=== PATIENT | female | born 1990 | race American Indian/Alaskan Native ===

== ENCOUNTER 2023-09-21 08:00 | Emergency (ER) | payer OTHER, SELFPAY ==
[2023-09-21] VITALS (63 sets, daily range): BP systolic 122–198; BP diastolic 64–126; PULSE 77–154; RESP 12–31; TEMP 36.7; O2SAT 97–100; BMI 28.0
--- NOTE | 2023-09-21 08:24 | ED.OVERDOSE ---
HPI - Overdose General Chief Complaint: Toxicology Problem Stated Complaint: overdose on trazodone Time Seen by Provider: 09/21/23 08:22 Source: patient Mode of arrival: Ambulatory History of Present Illness HPI Narrative: Patient is a 32-year-old female history of anxiety depression PTSD on trazodone and Zoloft presenting today after overdose 4 days ago. She reports that 5 days ago she was feeling suicidal she was drinking excessive amount of alcohol riding suicide notes the next day she took trazodone. She is 50 mg tablets she took 6 throughout the day she was wanting to sleep and then had an argument with her at night and took 10-20 tablets unknown how much she actually took. She did take a handful of them she spit them back out then tried to swallow them again unclear how many she actually took. She reports that she has not been sleeping since then she does not feel very good she feels very shaky. She has also been decreasing her Zoloft she was at 100 mg now she is at 50 mg. She reports that she did not take any extra Zoloft. She was unable to sleep left last night she took valerian root and ashwaganda gummy hydroxyzine this morning she did have some alcohol this morning. Patient is no longer endorsing suicidal ideations. Unclear if she would voluntarily go to mental health facility. 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 Unfortunately 1 of crisis counselors also, did suicide. She does not feel like she has support from her but feels like she is support friends He has a previous overdose attempt with Benadryl many years ago Related Data Home Medications Medication Instructions Recorded Confirmed hydroxyzine HCl 10 mg tablet 10 - 25 mg PO Q6H PRN panic attack 03/13/23 04/18/23 Previous Rx's Medication Instructions Recorded hydroxyzine HCl 25 mg tablet 25 mg PO 3XD PRN anxiety #60 tabs 03/13/23 sertraline 100 mg tablet 100 mg PO DAILY #30 tabs 03/13/23 trazodone 50 mg tablet 50 - 100 mg (1 - 2 x 50 mg) PO 03/13/23 ONCE PM #60 tabs bupropion HCl 150 mg tablet,12 hr 150 mg PO BID #60 tabs 09/03/23 sustained-release Allergies Allergy/AdvReac Type Severity Reaction Status Date / Time No Known Drug Allergies Allergy Unverified 03/28/23 11:28 Patient History Medical History (Updated 09/21/23 @ 13:49 by Maria L Elliott DO) PTSD (post-traumatic stress disorder) (~2001) ADHD (~1999) Irregular menstrual cycle (~2006) Herpes (~2009) Frequent UTI (~2010) Chronic bilateral low back pain without sciatica Depression (~2001) Anxiety (~1997) Surgical History (Updated 04/10/23 @ 21:32 by Marie Campos) Anesthesia History of tubal ligation (~04/2015) History of nasal septoplasty (~07/2017) Family History (Updated 04/10/23 @ 21:33 by Marie Campos) Father Diabetes mellitus Stroke Grandmother Cancer Social History Smoking Status: Former smoker Smoking Status: Former smoker alcohol intake frequency: 3 or more drinks per day Alcohol type: beer and wine Substance Use Type: does not use Exam Initial Vital Signs Initial Vital Signs: Vital Signs Temperature 98.1 F 09/21/23 08:06 Pulse Rate 112 H 09/21/23 08:06 Respiratory Rate 18 09/21/23 08:06 Blood Pressure 167/119 H 09/21/23 08:06 Pulse Oximetry 99 09/21/23 08:06 Oxygen Delivery Method Room Air 09/21/23 08:06 GENERAL: Alert anxious 32-year-old female and in [no acute] distress. HEENT: Head atraumatic,EOMI, pupils reactive, face symmetric, [moist] mucous membranes CARDIOVASCULAR: Regular rate and rhythm without murmurs, rubs or gallops. RESPIRATORY: Breath sounds equal bilaterally, no wheezes rales or rhonchi. ABDOMEN: Soft, nontender. Normoactive bowel sounds all 4 quadrants. No guarding or rebound. EXTREMITIES: Normal range of motion, no clubbing or edema. Neurovascularly intact NEUROLOGICAL: Alert and oriented x4.Normal gait and speech. SKIN: Warm, dry, no laceration, no petechiae, no rashes or lesions. Course Orders Ordered: ED Orders 09/21/23 08:56 Urine Drug Screen, Rapid Stat Discontinued Medications Sodium Chloride (Normal Saline 0.9%) 1,000 mls @ 150 mls/hr IV CONT KELSEY Last Infusion: 09/21/23 13:50 Dose: Infused Documented By: Admin: 09/21/23 08:35 Dose: 150 mls/hr Documented By: Lorazepam (Lorazepam 2 Mg/Ml Inj) 0.5 mg IV NOW ONE Stop: 09/21/23 12:20 Last Admin: 09/21/23 12:27 Dose: 0.5 mg Documented By: RB Ondansetron HCl (Ondansetron 4 Mg/2 Ml Inj) 4 mg IV NOW ONE Stop: 09/21/23 12:20 Last Admin: 09/21/23 12:27 Dose: 4 mg Documented By: RB Vital Signs Vital signs: Vital Signs - 8 hr 09/21/23 09:40 09/21/23 09:40 09/21/23 09:45 Pulse Rate 98 H Respiratory Rate 14 Blood Pressure 144/93 H 158/102 H Pulse Oximetry 100 Oxygen Delivery Method 09/21/23 09:45 09/21/23 09:50 09/21/23 09:50 Pulse Rate 89 110 H Respiratory Rate 12 Blood Pressure 152/95 H Pulse Oximetry 99 100 Oxygen Delivery Method 09/21/23 09:55 09/21/23 09:55 09/21/23 10:00 Pulse Rate 103 H 106 H Respiratory Rate 16 18 Blood Pressure 145/88 H Pulse Oximetry 100 100 Oxygen Delivery Method 09/21/23 10:00 09/21/23 10:30 09/21/23 10:39 Pulse Rate 100 H 104 H Respiratory Rate 22 26 H Blood Pressure 150/94 H Pulse Oximetry 98 97 Oxygen Delivery Method Room Air 09/21/23 10:39 09/21/23 10:40 09/21/23 10:40 Pulse Rate 104 H Respiratory Rate Blood Pressure 155/96 H 166/106 H Pulse Oximetry 98 Oxygen Delivery Method Room Air 09/21/23 10:45 09/21/23 10:45 09/21/23 10:51 Pulse Rate 106 H 91 H Respiratory Rate 14 Blood Pressure 170/126 H Pulse Oximetry 98 98 Oxygen Delivery Method 09/21/23 10:51 09/21/23 10:55 09/21/23 10:55 Pulse Rate 117 H Respiratory Rate 26 H Blood Pressure 127/64 153/86 H Pulse Oximetry 98 Oxygen Delivery Method 09/21/23 11:00 09/21/23 11:01 09/21/23 11:01 Pulse Rate 88 93 H Respiratory Rate 25 H 22 Blood Pressure 133/75 Pulse Oximetry 98 99 Oxygen Delivery Method 09/21/23 11:05 09/21/23 11:05 09/21/23 11:10 Pulse Rate 94 H 84 Respiratory Rate 12 Blood Pressure 129/72 Pulse Oximetry 98 97 Oxygen Delivery Method 09/21/23 11:10 09/21/23 11:15 09/21/23 11:15 Pulse Rate 87 Respiratory Rate 21 Blood Pressure 131/76 134/87 Pulse Oximetry 99 Oxygen Delivery Method 09/21/23 11:20 09/21/23 11:20 09/21/23 11:28 Pulse Rate 82 87 Respiratory Rate 19 21 Blood Pressure 124/69 Pulse Oximetry 99 98 Oxygen Delivery Method 09/21/23 11:28 09/21/23 11:30 09/21/23 11:30 Pulse Rate 78 Respiratory Rate 15 Blood Pressure 147/87 H 122/68 Pulse Oximetry 98 Oxygen Delivery Method 09/21/23 11:35 09/21/23 11:35 09/21/23 11:40 Pulse Rate 83 Respiratory Rate 21 Blood Pressure 138/79 Pulse Oximetry 98 97 Oxygen Delivery Method 09/21/23 11:40 09/21/23 11:46 09/21/23 11:46 Pulse Rate Respiratory Rate Blood Pressure 171/117 H 176/101 H Pulse Oximetry 98 Oxygen Delivery Method 09/21/23 11:50 09/21/23 11:50 09/21/23 11:55 Pulse Rate 104 H Respiratory Rate Blood Pressure 174/109 H Pulse Oximetry 97 98 Oxygen Delivery Method 09/21/23 11:55 09/21/23 12:01 09/21/23 12:06 Pulse Rate 94 H Respiratory Rate 27 H Blood Pressure 167/108 H 174/115 H Pulse Oximetry Oxygen Delivery Method 09/21/23 12:06 09/21/23 12:10 09/21/23 12:10 Pulse Rate 97 H Respiratory Rate Blood Pressure 191/82 H 198/89 H Pulse Oximetry Oxygen Delivery Method 09/21/23 12:15 09/21/23 12:15 09/21/23 12:21 Pulse Rate 129 H 89 Respiratory Rate 23 Blood Pressure 196/93 H Pulse Oximetry 97 99 Oxygen Delivery Method 09/21/23 12:21 09/21/23 12:25 09/21/23 12:25 Pulse Rate 85 Respiratory Rate 14 Blood Pressure 144/98 H 131/82 Pulse Oximetry 99 Oxygen Delivery Method 09/21/23 12:30 09/21/23 12:30 09/21/23 12:35 Pulse Rate 86 85 Respiratory Rate Blood Pressure 134/92 H Pulse Oximetry 99 99 Oxygen Delivery Method 09/21/23 12:35 09/21/23 12:40 09/21/23 12:40 Pulse Rate 83 Respiratory Rate 14 Blood Pressure 137/79 129/77 Pulse Oximetry 99 Oxygen Delivery Method 09/21/23 12:45 09/21/23 12:45 09/21/23 12:50 Pulse Rate 85 88 Respiratory Rate 26 H Blood Pressure 131/71 Pulse Oximetry 98 98 Oxygen Delivery Method 09/21/23 12:50 09/21/23 12:55 09/21/23 12:55 Pulse Rate 83 Respiratory Rate 17 Blood Pressure 136/84 136/82 Pulse Oximetry 99 Oxygen Delivery Method 09/21/23 13:00 09/21/23 13:01 09/21/23 13:01 Pulse Rate 77 83 Respiratory Rate 24 26 H Blood Pressure 133/80 Pulse Oximetry 98 98 Oxygen Delivery Method 09/21/23 13:05 09/21/23 13:05 09/21/23 13:15 Pulse Rate 81 Respiratory Rate 19 Blood Pressure 139/84 122/64 Pulse Oximetry 97 Oxygen Delivery Method 09/21/23 13:15 09/21/23 13:21 09/21/23 13:21 Pulse Rate 77 81 Respiratory Rate 16 Blood Pressure 137/80 Pulse Oximetry 98 99 Oxygen Delivery Method 09/21/23 13:25 09/21/23 13:25 09/21/23 13:40 Pulse Rate 85 Respiratory Rate 23 Blood Pressure 139/87 132/89 Pulse Oximetry 97 Oxygen Delivery Method 09/21/23 13:40 Pulse Rate 96 H Respiratory Rate 20 Blood Pressure Pulse Oximetry 99 Oxygen Delivery Method MDM - Overdose Lab Data 09/21/23 08:27 09/21/23 08:27 Labs: Lab Results 09/21/23 09/21/23 Range/Units 08:27 08:56 WBC 7.2 (4.5-11.0) X10^3/uL RBC 4.35 (4.0-5.2) X10^6/uL Hgb 13.4 (12.0-16.0) g/dL Hct 40.0 (36-46) % MCV 91.9 (80-100) fL MCH 30.9 (26-34) PG MCHC 33.6 (30-36) % RDW 13.2 (11.6-14.8) % Plt Count 260 (150-400) X10^3/uL Neut % (Auto) 75.7 H (50-75) % Lymph % (Auto) 18.1 L (25-40) % [place] % (Auto) 5.6 (3-14) % Eos % (Auto) 0.4 L (2-4) % Baso % (Auto) 0.2 (0-2) % Neut # (Auto) 5400 (6014-5297) /uL Lymph # (Auto) 1300 (8156-6827) /uL [place] # (Auto) 400 (0-900) /uL Eos # (Auto) 0 (0-450) /uL Baso # (Auto) 0 (0-100) /uL Sodium 139 (137-145) mmol/L Potassium 4.3 (3.4-5.1) mmol/L Chloride 107 (98-107) mmol/L Carbon Dioxide 23 (22-32) mmol/L BUN 13 (7-17) mg/dL Creatinine 0.67 (0.52-1.04) mg/dL Estimated GFR > 60 (>60) mL/min BUN/Creatinine Ratio 19.4 (6-22) Glucose 112 H (70-100) mg/dL Lactate 0.9 (0.7-2.1) mmol/L Calcium 9.4 (8.4-10.2) mg/dL Total Bilirubin 0.5 (0.2-1.3) mg/dL AST 28 (14-36) IU/L ALT 21 (<35) IU/L Alkaline Phosphatase 64 (38-126) U/L Total Creatine Kinase 151 H (30-135) U/L Troponin I < 0.012 (0.01-0.034) ng/mL Total Protein 8.0 (6.3-8.2) g/dL Albumin 5.0 (3.5-5.0) g/dL Globulin 3.0 (1.7-4.1) g/dL Albumin/Globulin Ratio 1.7 (1.0-2.8) Salicylates < 1.0 (<20) mg/dL U Opiates 300ng/mL cut Negative (Negative) Ur Oxycodone Screen Negative (Negative) Urine Methadone Screen Negative (Negative) Acetaminophen < 10 (10-30) ug/mL Ur Barbiturates Screen Negative (Negative) U Tricyclic Antidepress Negative (Negative) Ur Phencyclidine Scrn Negative (Negative) Ur Amphetamines Screen Negative (Negative) U Methamphetamines Scrn Negative (Negative) Ur MDMA Scrn (Ecstasy) Negative (Negative) U Benzodiazepines Scrn Negative (Negative) Urine Cocaine Screen Negative (Negative) U Marijuana (THC) Screen Positive H (Negative) Urine pH Normal (Normal) Urine Specific [place] Normal (Normal) Ethyl Alcohol < 10 ( - 10) mg/dL Ur Creatinine Normal (Normal) Point of Care Testing Test Results Negative Urine Dip Bedside Urine Glucose Negative Bedside Urine Bilirubin - Negative Bedside Urine Ketone +/- 5 Urine Specific [place] 1.010 Bedside Urine Occult Blood + Bedside Urine pH 6.5 Bedside Urine Protein - Negative Bedside Urine Urobilinogen - Negative Bedside Urine Nitrite - Negative Bedside Urine Leukocytes - Negative Esterase ECG Data Attestation: I personally reviewed and interpreted this ECG as follows: Interpretation: Normal sinus rhythm rate 111 ND interval 132 QRS 68 QTC 435 MDM Narrative Medical decision making narrative: Patient 32-year-old female presents today multiple days after trazodone. She is remorseful afterwards she has no longer suicidal. Poison control was contacted by myself out of the window for trazodone complications. EKG does not show any prolonged QTC. Maybe having some mild serotonin like symptoms with some Zoloft. However patient states that she has not taken Zoloft for a couple of days but she did take 1. Blood work reviewed no co ingestion identified, she is positive for marijuana. Kidney function liver enzymes are normal limits no anemia. Patient monitored for almost 6 hours in the ED she does have a slight headache she is given some Ativan for anxiety and Tylenol. Overall feeling much better. She met with social media content specialist. Does not meet involuntary criteria. She is able contract for safety. Naloxone at Discharge Meets criteria for naloxone at discharge?: No Discharge Plan Departure Patient Disposition: Home Clinical Impression: Overdose Instructions: DI for Drug Overdose in Adults Activity Restrictions/Additional Instructions: *You have been diagnosed with overdose *What to do: You are welcome here any time If you are feeling suicidal or having suicidal thoughts: Call: Suicide Hotline: 867 Visit: www.iamhurting.org Text: 854007 *Continue to take medications as directed *Follow up with your primary care provider in 2-3 days or call [phone] *Return to ER if you should have increasing thoughts of self-harm/suicide [or] any new, worsening or concerning symptoms Prescriptions: No Action hydroxyzine HCl 10 mg tablet 10 - 25 mg PO Q6H PRN (Reason: panic attack) sertraline 100 mg tablet 100 mg PO DAILY Qty: 30 2RF trazodone 50 mg tablet 50 - 100 mg PO ONCE PM Qty: 60 2RF hydroxyzine HCl 25 mg tablet 25 mg PO 3XD PRN (Reason: anxiety) Qty: 60 2RF bupropion HCl 150 mg tablet sustained-release 12 hr 150 mg PO BID Qty: 60 5RF Referrals: Shilo Romero MD [Primary Care Provider] - Stand Alone Forms: Patient Portal/API
[2023-09-21] MEDS: SODIUM CHLORIDE 0.9% 1,000 ML 150 ML IV (08:35)
--- NOTE | 2023-09-21 08:40 | PC.NURSE ---
Provider at patient bedside during triage of this patient.
[2023-09-21 08:41] LABS: Add Manual Diff / Slide Review NO; Basophils Absolute Auto 0 /uL (0-100); Basophils Percent Auto 0.2 % (0-2); Eosinophils Absolute Auto 0 /uL (0-450); Eosinophils Percent Auto 0.4 % (2-4); Hemoglobin 13.4 g/dL (12.0-16.0); Lymphocytes Absolute Auto 1300 /uL (1100-4500); Lymphocytes Percent Auto 18.1 % (25-40); Mean Corpuscular HGB Conc 33.6 % (30-36); Mean Corpuscular Hemoglobin 30.9 PG (26-34); Mean Corpuscular Volume 91.9 fL (80-100); Monocytes Absolute Auto 400 /uL (0-900); Monocytes Percent Auto 5.6 % (3-14); Neutrophils Absolute Auto 5400 /uL (1500-7000); Neutrophils Percent Auto 75.7 % (50-75); Platelet Count 260 X10^3/uL (150-400); Red Blood Cell Count 4.35 X10^6/uL (4.0-5.2); Red Cell Distribution Width 13.2 % (11.6-14.8); White Blood Cell Count 7.2 X10^3/uL (4.5-11.0)
[2023-09-21 08:55] LABS: Acetaminophen < 10 ug/mL (10-30); Alanine Aminotransferase 21 IU/L (<35); Albumin Globulin Ratio 1.7 (1.0-2.8); Alkaline Phosphatase 64 U/L (38-126); Aspartate Aminotransferase 28 IU/L (14-36); BUN Creatinine Ratio 19.4 (6-22); Bilirubin Total 0.5 mg/dL (0.2-1.3); Blood Urea Nitrogen 13 mg/dL (7-17); Calcium 9.4 mg/dL (8.4-10.2); Carbon Dioxide 23 mmol/L (22-32); Chloride 107 mmol/L (98-107); Creatine Kinase 151 U/L (30-135); Estimated Glomerular Filt Rate > 60 mL/min (>60); Ethanol (ETOH) < 10 mg/dL; Glucose 112 mg/dL (70-100); HEMOLYSIS < 15 (0-50); Lactate (Lactic Acid) 0.9 mmol/L (0.7-2.1); Potassium 4.3 mmol/L (3.4-5.1); Salicylate < 1.0 mg/dL (<20); Sodium 139 mmol/L (137-145)
[2023-09-21 09:06] LABS: Troponin I < 0.012 ng/mL (0.01-0.034)
[2023-09-21 09:09] LABS: UR Morphine/Opiate cutoff 300 Negative (Negative); Ur Creatinine Normal (Normal); Ur Specific Gravity Normal (Normal); Urine Amphetamines Negative (Negative); Urine Barbiturates Negative (Negative); Urine Benzodiazepines Negative (Negative); Urine Cocaine Negative (Negative); Urine MDMA Negative (Negative); Urine Methadone Negative (Negative); Urine Methamphetamines Negative (Negative); Urine Oxycodone Negative (Negative); Urine Phencyclidine Negative (Negative); Urine Tetrahydrocannabinol Positive (Negative); Urine Tricyclic Antidepressant Negative (Negative); Urine pH Normal (Normal)
--- NOTE | 2023-09-21 09:13 | PC.NURSE ---
This RN called Poison control center at 0910. Provider previously called and started the case. This RN informed poison control of the lab results that had returned.
--- NOTE | 2023-09-21 09:17 | PC.NURSE ---
Patient personal items taken with patient consent and labeled and placed in locked cabinet. Patient redressed in paper scrubs.
--- NOTE | 2023-09-21 10:28 | PC.NURSE ---
Upon reassessment patient states that she is seeing a centipede crawling on the grullon intermittently. This RN informed provider and provider responded Provider aware. No new orders at this time.
--- NOTE | 2023-09-21 11:47 | PC.NURSE ---
Pt is speaking with CONTRACTS REPRESENTATIVE
--- NOTE | 2023-09-21 12:21 | PC.NURSE ---
pt started vomitting during high lift driver consult
[2023-09-21] MEDS: LORazepam 2 MG/ML INJ 0.5 MG IV (12:27)
[2023-09-21] MEDS: ONDANSETRON 4 MG/2 ML INJ IV (12:27)
--- NOTE | 2023-09-21 13:50 | PC.NURSE ---
Normal saline stopped and IV removed as provider stated they are discharging patient. Items returned to patient to allow them to redress. Patient has purse and phone.
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
== END 2023-09-21 13:58 | disposition home or self-care (01) ==
PROVIDERS: Emergency Provider Emergency Medicine; PCP Family Medicine
DX: T43.212A Poisoning by selective serotonin and norepinephrine reuptake inhibitors, intentional self-harm, initial encounter (principal); R03.0 Elevated blood-pressure reading, without diagnosis of hypertension
CPT/HCPCS: 36415; 80053; 80305; 80320; 80329; 81003; 81025; 82550; 83605; 84484; 85025; 93005; 96374; 96375; 99284; 99285; G0480; J2060; J2405

== ENCOUNTER 2023-09-22 21:24 | Emergency (ER) | payer SELFPAY ==
[2023-09-22 21:30] VITALS: BP 180/100; PULSE 115; RESP 24; TEMP 37.1; O2SAT 98; BMI 28.0
[2023-09-22 22:24] LABS: Add Manual Diff / Slide Review NO; Basophils Absolute Auto 100 /uL (0-100); Basophils Percent Auto 0.5 % (0-2); Eosinophils Absolute Auto 100 /uL (0-450); Eosinophils Percent Auto 1.1 % (2-4); Hematocrit 38.9 % (36-46); Hemoglobin 13.1 g/dL (12.0-16.0); Lymphocytes Absolute Auto 2700 /uL (1100-4500); Lymphocytes Percent Auto 28.4 % (25-40); Mean Corpuscular HGB Conc 33.7 % (30-36); Mean Corpuscular Hemoglobin 31.1 PG (26-34); Mean Corpuscular Volume 92.2 fL (80-100); Monocytes Absolute Auto 800 /uL (0-900); Monocytes Percent Auto 8.3 % (3-14); Neutrophils Absolute Auto 5800 /uL (1500-7000); Neutrophils Percent Auto 61.7 % (50-75); Platelet Count 245 X10^3/uL (150-400); Red Blood Cell Count 4.22 X10^6/uL (4.0-5.2); Red Cell Distribution Width 13.4 % (11.6-14.8); White Blood Cell Count 9.4 X10^3/uL (4.5-11.0)
[2023-09-22 22:31] LABS: Acetaminophen < 10 ug/mL (10-30); Alanine Aminotransferase 18 IU/L (<35); Albumin 4.5 g/dL (3.5-5.0); Albumin Globulin Ratio 1.6 (1.0-2.8); Alkaline Phosphatase 54 U/L (38-126); Aspartate Aminotransferase 23 IU/L (14-36); BUN Creatinine Ratio 22.1 (6-22); Bilirubin Total 0.3 mg/dL (0.2-1.3); Blood Urea Nitrogen 15 mg/dL (7-17); Calcium 9.7 mg/dL (8.4-10.2); Carbon Dioxide 23 mmol/L (22-32); Chloride 108 mmol/L (98-107); Estimated Glomerular Filt Rate > 60 mL/min (>60); Ethanol (ETOH) < 10 mg/dL; Globulin 2.8 g/dL (1.7-4.1); Glucose 90 mg/dL (70-100); HEMOLYSIS < 15 (0-50); Potassium 3.7 mmol/L (3.4-5.1); Salicylate < 1.0 mg/dL (<20); Sodium 138 mmol/L (137-145); Total Protein 7.3 g/dL (6.3-8.2)
[2023-09-22 22:46] LABS: Ur Creatinine Normal (Normal); Ur Specific Gravity Normal (Normal); Urine Amphetamines Negative (Negative); Urine Barbiturates Negative (Negative); Urine Benzodiazepines Negative (Negative); Urine Cocaine Negative (Negative); Urine MDMA Negative (Negative); Urine Methadone Negative (Negative); Urine Methamphetamines Negative (Negative); Urine Opiates Negative (Negative); Urine Oxycodone Negative (Negative); Urine Phencyclidine Negative (Negative); Urine THC Positive (Negative); Urine Tricyclic Antidepressant Negative (Negative); Urine pH Normal (Normal)
[2023-09-22 23:00] LABS: Free T4, Direct Thyroxine 1.18 ng/dL (0.78-2.19)
[2023-09-22 23:01] LABS: Thyroid Stimulating Hormone 1.21 uIU/mL (0.47-4.68)
--- NOTE | 2023-09-22 23:33 | ED_ITS ---
HPI - Psych <Veronica Sims, DO - Last Filed: 09/24/23 03:51> General Chief Complaint: Psychiatric Symptoms Stated Complaint: insomnia Time Seen by Provider: 09/22/23 23:10 Source: patient Mode of arrival: Ambulatory Limitations: no limitations History of Present Illness HPI Narrative: This is a 32-year-old female with history of anxiety, depression, PTSD on trazodone and Zoloft who presents 5 days after an overdose. Patient was actually seen here yesterday met with social work she had some interest in inpatient placement but states that she had to arrange some things for pets and left but has returned seeking voluntary placement. She states she is still having some suicidal thoughts, she was drinking excessive amount of alcohol and writing suicidal notes the day she took trazodone. At that time she took a handful of tablets on Sunday, the . She spit some out and then took them again. She states she was feeling very shaky, she has also been decreasing her other medications. She has had quite a bit of insomnia and had difficulty sleeping the last several days. She states she has not attempted any other overdoses or care to herself. She states she uses marijuana but no other recreational drugs. She occasionally drinks alcohol but has not had any since last Sunday. She describes feeling generally depressed, anxious and feeling like she can not control her situation well. She does try to contract for safety but is very much seeking assistance. She denies any hallucinations. She has a counselor that she normally sees but it has been several weeks. She did meet with our SLUDGE FILTRATION ATTENDANT yesterday. Related Data Home Medications Medication Instructions Recorded Confirmed hydroxyzine HCl 10 mg tablet 10 - 25 mg PO Q6H PRN panic attack 03/13/23 04/18/23 Previous Rx's Medication Instructions Recorded hydroxyzine HCl 25 mg tablet 25 mg PO 3XD PRN anxiety #60 tabs 03/13/23 sertraline 100 mg tablet 100 mg PO DAILY #30 tabs 03/13/23 trazodone 50 mg tablet 50 - 100 mg (1 - 2 x 50 mg) PO 03/13/23 ONCE PM #60 tabs bupropion HCl 150 mg tablet,12 hr 150 mg PO BID #60 tabs 09/03/23 sustained-release Allergies Allergy/AdvReac Type Severity Reaction Status Date / Time No Known Drug Allergies Allergy Unverified 03/28/23 11:28 Review of Systems <Veronica Sims DO - Last Filed: 09/24/23 03:51> Review of Systems ROS Unobtainable: All systems reviewed & are unremarkable except as noted in HPI and below Patient History <Veronica Sims DO - Last Filed: 09/24/23 03:51> Medical History PTSD (post-traumatic stress disorder) (~2001) ADHD (~1999) Irregular menstrual cycle (~2006) Herpes (~2009) Frequent UTI (~2010) Chronic bilateral low back pain without sciatica Depression (~2001) Anxiety (~1997) Surgical History Anesthesia History of tubal ligation (~04/2015) History of nasal septoplasty (~07/2017) Family History Father Diabetes mellitus Stroke Grandmother Cancer Social History Smoking Status: Former smoker Smoking Status: Former smoker alcohol intake frequency: a few times a week Alcohol type: beer and wine Substance Use Type: marijuana Exam <Veronica Sims DO - Last Filed: 09/24/23 03:51> Narrative Exam Narrative: GENERAL: Alert and oriented x three, female in mild distress. patient becomes tearful during conversation. HEENT: Head normocephalic, atraumatic, EOMI, pupils reactive, face symmetric, moist mucous membranes NECK: Supple, full range of motion CARDIOVASCULAR: Regular rate and rhythm without murmurs, rubs or gallops. RESPIRATORY: Breath sounds equal bilaterally, no wheezes rales or rhonchi. ABDOMEN: Soft, nontender. Normoactive bowel sounds all 4 quadrants. No guarding or rebound, rigidity, no mass : No CVA tenderness EXTREMITIES: Normal range of motion, no clubbing or edema. Neurovascularly intact NEUROLOGICAL: Cranial nerves II through XII grossly intact. Moving all extremities SKIN: Warm, dry, no petechiae, no rashes or lesions PSYCH: Recent suicide attempt, no active intent, occasional ideation, no homicidal intent, no hallucinations. Patient does continue to endorse depressive thoughts. Initial Vital Signs Initial Vital Signs: Vital Signs Temperature 98.7 F 09/22/23 21:30 Pulse Rate 115 H 09/22/23 21:30 Respiratory Rate 24 09/22/23 21:30 Blood Pressure 180/100 H 09/22/23 21:30 Pulse Oximetry 98 09/22/23 21:30 Oxygen Delivery Method Room Air 09/22/23 21:30 <Noel Mckeon MD - Last Filed: 09/23/23 22:31> Initial Vital Signs Initial Vital Signs: Vital Signs Temperature 98.7 F 09/22/23 21:30 Pulse Rate 115 H 09/22/23 21:30 Respiratory Rate 24 09/22/23 21:30 Blood Pressure 180/100 H 09/22/23 21:30 Pulse Oximetry 98 09/22/23 21:30 Oxygen Delivery Method Room Air 09/22/23 21:30 Course <Veronica Sims DO - Last Filed: 09/24/23 03:51> Orders Ordered: Discontinued Medications Lorazepam (Lorazepam 0.5 Mg Tablet) 1 mg PO NOW ONE Stop: 09/22/23 23:44 Last Admin: 09/22/23 23:58 Dose: 1 mg Documented By: NORMAN Lorazepam (Lorazepam 0.5 Mg Tablet) 1 mg PO NOW ONE Stop: 09/23/23 09:22 Last Admin: 09/23/23 09:26 Dose: 1 mg Documented By: HERB Ondansetron HCl (Ondansetron 4 Mg Odt) 4 mg SL NOW ONE Stop: 09/23/23 09:22 Last Admin: 09/23/23 09:25 Dose: 4 mg Documented By: RB Vital Signs Vital signs: Vital Signs - 8 hr 09/23/23 15:00 09/23/23 15:30 09/23/23 18:55 Temperature 98.3 F Pulse Rate 79 101 H 82 Respiratory Rate 16 Blood Pressure 134/92 H 180/116 H 148/88 H Pulse Oximetry 96 97 99 Oxygen Delivery Method Room Air <Noel Mckeon MD - Last Filed: 09/23/23 22:31> Orders Ordered: Discontinued Medications Lorazepam (Lorazepam 0.5 Mg Tablet) 1 mg PO NOW ONE Stop: 09/22/23 23:44 Last Admin: 09/22/23 23:58 Dose: 1 mg Documented By: NORMAN Lorazepam (Lorazepam 0.5 Mg Tablet) 1 mg PO NOW ONE Stop: 09/23/23 09:22 Last Admin: 09/23/23 09:26 Dose: 1 mg Documented By: RB Ondansetron HCl (Ondansetron 4 Mg Odt) 4 mg SL NOW ONE Stop: 09/23/23 09:22 Last Admin: 09/23/23 09:25 Dose: 4 mg Documented By: RB Vital Signs Vital signs: Vital Signs - 8 hr 09/23/23 15:00 09/23/23 15:30 09/23/23 18:55 Temperature 98.3 F Pulse Rate 79 101 H 82 Respiratory Rate 16 Blood Pressure 134/92 H 180/116 H 148/88 H Pulse Oximetry 96 97 99 Oxygen Delivery Method Room Air MDM - Psych <Veronica Sims, - Last Filed: 09/24/23 03:51> Lab Data 09/22/23 21:55 09/22/23 21:55 Labs: Lab Results 09/22/23 09/22/23 Range/Units 21:55 22:36 WBC 9.4 (4.5-11.0) X10^3/uL RBC 4.22 (4.0-5.2) X10^6/uL Hgb 13.1 (12.0-16.0) g/dL Hct 38.9 (36-46) % MCV 92.2 (80-100) fL MCH 31.1 (26-34) PG MCHC 33.7 (30-36) % RDW 13.4 (11.6-14.8) % Plt Count 245 (150-400) X10^3/uL Neut % (Auto) 61.7 (50-75) % Lymph % (Auto) 28.4 (25-40) % Bryan % (Auto) 8.3 (3-14) % Eos % (Auto) 1.1 L (2-4) % Baso % (Auto) 0.5 (0-2) % Neut # (Auto) 5800 (2043-0277) /uL Lymph # (Auto) 2700 (0520-1445) /uL Bryan # (Auto) 800 (0-900) /uL Eos # (Auto) 100 (0-450) /uL Baso # (Auto) 100 (0-100) /uL Sodium 138 (137-145) mmol/L Potassium 3.7 (3.4-5.1) mmol/L Chloride 108 H (98-107) mmol/L Carbon Dioxide 23 (22-32) mmol/L BUN 15 (7-17) mg/dL Creatinine 0.68 (0.52-1.04) mg/dL Estimated GFR > 60 (>60) mL/min BUN/Creatinine Ratio 22.1 H (6-22) Glucose 90 (70-100) mg/dL Calcium 9.7 (8.4-10.2) mg/dL Total Bilirubin 0.3 (0.2-1.3) mg/dL AST 23 (14-36) IU/L ALT 18 (<35) IU/L Alkaline Phosphatase 54 (38-126) U/L Total Protein 7.3 (6.3-8.2) g/dL Albumin 4.5 (3.5-5.0) g/dL Globulin 2.8 (1.7-4.1) g/dL Albumin/Globulin Ratio 1.6 (1.0-2.8) TSH 1.21 (0.47-4.68) uIU/mL Free T4 1.18 (0.78-2.19) ng/dL Salicylates < 1.0 (<20) mg/dL U Opiates 300ng/mL cut Negative (Negative) Ur Oxycodone Screen Negative (Negative) Urine Methadone Screen Negative (Negative) Acetaminophen < 10 (10-30) ug/mL Ur Barbiturates Screen Negative (Negative) U Tricyclic Antidepress Negative (Negative) Ur Phencyclidine Scrn Negative (Negative) Ur Amphetamines Screen Negative (Negative) U Methamphetamines Scrn Negative (Negative) Ur MDMA Scrn (Ecstasy) Negative (Negative) U Benzodiazepines Scrn Negative (Negative) Urine Cocaine Screen Negative (Negative) U Marijuana (THC) Screen Positive H (Negative) Urine pH Normal (Normal) Urine Specific [place] Normal (Normal) Ethyl Alcohol < 10 ( - 10) mg/dL Ur Creatinine Normal (Normal) Point of Care Testing Test Results Negative Urine Dip Bedside Urine Glucose Negative Bedside Urine Bilirubin - Negative Bedside Urine Ketone - Negative Urine Specific [place] 1.02 Bedside Urine Occult Blood - Negative Bedside Urine pH 6 Bedside Urine Protein - Negative Bedside Urine Urobilinogen - Negative Bedside Urine Nitrite - Negative Bedside Urine Leukocytes - Negative Esterase MDM Narrative Medical decision making narrative: 32-year-old female with suicide attempt by overdose 5 days ago, patient is currently seeking voluntary inpatient treatment. She is medically cleared. Labs show normal white count, hemoglobin and platelets. Chemistries are appropriate with sodium of 138 potassium of 3 7 chloride of 108 CO2 of 23 with a BUN of 15 creatinine 0.68, glucose of 90- LFTs. Free T4 is 1.18 with a TSH of 1.12. Toxicology is negative for salicylates, Tylenol and ETOH. She is positive for THC but otherwise negative UDS. Urine is negative although she has had a tubal ligation. <Noel Mckeon MD - Last Filed: 09/23/23 22:31> Lab Data Attestation: I reviewed the patient's lab results. Labs: Lab Results 09/22/23 09/22/23 Range/Units 21:55 22:36 WBC 9.4 (4.5-11.0) X10^3/uL RBC 4.22 (4.0-5.2) X10^6/uL Hgb 13.1 (12.0-16.0) g/dL Hct 38.9 (36-46) % MCV 92.2 (80-100) fL MCH 31.1 (26-34) PG MCHC 33.7 (30-36) % RDW 13.4 (11.6-14.8) % Plt Count 245 (150-400) X10^3/uL Neut % (Auto) 61.7 (50-75) % Lymph % (Auto) 28.4 (25-40) % Bryan % (Auto) 8.3 (3-14) % Eos % (Auto) 1.1 L (2-4) % Baso % (Auto) 0.5 (0-2) % Neut # (Auto) 5800 (4318-4613) /uL Lymph # (Auto) 2700 (1396-2784) /uL Bryan # (Auto) 800 (0-900) /uL Eos # (Auto) 100 (0-450) /uL Baso # (Auto) 100 (0-100) /uL Sodium 138 (137-145) mmol/L Potassium 3.7 (3.4-5.1) mmol/L Chloride 108 H (98-107) mmol/L Carbon Dioxide 23 (22-32) mmol/L BUN 15 (7-17) mg/dL Creatinine 0.68 (0.52-1.04) mg/dL Estimated GFR > 60 (>60) mL/min BUN/Creatinine Ratio 22.1 H (6-22) Glucose 90 (70-100) mg/dL Calcium 9.7 (8.4-10.2) mg/dL Total Bilirubin 0.3 (0.2-1.3) mg/dL AST 23 (14-36) IU/L ALT 18 (<35) IU/L Alkaline Phosphatase 54 (38-126) U/L Total Protein 7.3 (6.3-8.2) g/dL Albumin 4.5 (3.5-5.0) g/dL Globulin 2.8 (1.7-4.1) g/dL Albumin/Globulin Ratio 1.6 (1.0-2.8) TSH 1.21 (0.47-4.68) uIU/mL Free T4 1.18 (0.78-2.19) ng/dL Salicylates < 1.0 (<20) mg/dL U Opiates 300ng/mL cut Negative (Negative) Ur Oxycodone Screen Negative (Negative) Urine Methadone Screen Negative (Negative) Acetaminophen < 10 (10-30) ug/mL Ur Barbiturates Screen Negative (Negative) U Tricyclic Antidepress Negative (Negative) Ur Phencyclidine Scrn Negative (Negative) Ur Amphetamines Screen Negative (Negative) U Methamphetamines Scrn Negative (Negative) Ur MDMA Scrn (Ecstasy) Negative (Negative) U Benzodiazepines Scrn Negative (Negative) Urine Cocaine Screen Negative (Negative) U Marijuana (THC) Screen Positive H (Negative) Urine pH Normal (Normal) Urine Specific [place] Normal (Normal) Ethyl Alcohol < 10 ( - 10) mg/dL Ur Creatinine Normal (Normal) Point of Care Testing Test Results Negative Urine Dip Bedside Urine Glucose Negative Bedside Urine Bilirubin - Negative Bedside Urine Ketone - Negative Urine Specific [place] 1.02 Bedside Urine Occult Blood - Negative Bedside Urine pH 6 Bedside Urine Protein - Negative Bedside Urine Urobilinogen - Negative Bedside Urine Nitrite - Negative Bedside Urine Leukocytes - Negative Esterase MDM Narrative Medical decision making narrative: 32-year-old female with suicide attempt by overdose 5 days ago, patient is currently seeking voluntary inpatient treatment. She is medically cleared. Labs show normal white count, hemoglobin and platelets. Chemistries are appropriate with sodium of 138 potassium of 3 7 chloride of 108 CO2 of 23 with a BUN of 15 creatinine 0.68, glucose of 90- LFTs. Free T4 is 1.18 with a TSH of 1.12. Toxicology is negative for salicylates, Tylenol and ETOH. She is positive for THC but otherwise negative UDS. Urine is negative although she has had a tubal ligation. Mike, 09/23/2023, 7:00 a.m., sign-out from Dr. Sims. 32-year-old female had overdose of trazodone 5 days ago, was seen here 09/21/2023 and medically cleared but opted for outpatient treatment at that time and went home, now feeling persistent/worsening depression symptoms, screening labs again negative, social sciences department chair consulted, await bed placement. Assumed interim care. 1200, awaiting SLUDGE FILTRATION ATTENDANT consultation 1445, awaiting disposition plan, SLUDGE FILTRATION ATTENDANT consultation and progress, unclear if inpatient or outpatient plan ancillary services manager relays that patient has either not met criteria, or beds could not be found, patient contracted for safety, she would like to go home, she will follow up as an outpatient with [facility] on Sunday, she will stay with spouse with whom she is estranged but the spouse she feels would be supportive and helpful to help her with assistance for help if she worsens in symptoms tonight. No current thoughts of hurting herself or others. Return precautions discussed. Discharged home as per manager social responsibility recommendations. Critical Care Time <Noel Mckeon MD - Last Filed: 09/23/23 22:31> Critical Care Time Critical Care Time: Yes Total Critical Care Time: 31 Attestation: The high probability of a clinically significant, sudden or life threatening deterioration of the [psychiatric, social, behavioral] systems required my full and direct attention, intervention and personal management. The aggregate critical care time was [31] minutes. This time is in addition to time spent performing reported procedures but includes the following: [x] Data Review and interpretation [x] Patient assessment and monitoring of vital signs [x] Documentation [x] Medication orders and management Discharge Plan Departure Patient Disposition: Home Clinical Impression: Depression Instructions: Depression Activity Restrictions/Additional Instructions: History of depression, recent trazodone non accidental ingestion couple of weeks ago, initial evaluation for possible placement and he decided to go home after medical clearance, ongoing depression symptoms, no new ingestions, screening labs unremarkable today. ancillary services manager was consulted, made attempts at trying for placement but apparently criteria was not met, or beds available. You were observed in the emergency department quite a number of hours, and were clinically stable. You contracted with social sciences department chair for safety. You wanted to go home. We will go home with family members to help observed you at home for now. Follow up with [facility] as you had planned with manager social responsibility, call them on Sunday to arrange close follow up. Return to this/nearest emergency department for any change worsening symptoms or any concerns prior Prescriptions: No Action hydroxyzine HCl 10 mg tablet 10 - 25 mg PO Q6H PRN (Reason: panic attack) sertraline 100 mg tablet 100 mg PO DAILY Qty: 30 2RF trazodone 50 mg tablet 50 - 100 mg PO ONCE PM Qty: 60 2RF hydroxyzine HCl 25 mg tablet 25 mg PO 3XD PRN (Reason: anxiety) Qty: 60 2RF bupropion HCl 150 mg tablet sustained-release 12 hr 150 mg PO BID Qty: 60 5RF Referrals: Shilo Romero MD [Primary Care Provider] - Stand Alone Forms: Patient Portal/API
[2023-09-22] MEDS: LORazepam 0.5 MG TABLET 1 MG PO (23:58)
--- NOTE | 2023-09-23 01:54 | PC.NURSE ---
spoke to [facility] they currently have no beds was told to try later on this morning spoke to [facility] and they don't take pt out of country over night
[2023-09-23 08:55] VITALS: BP 147/89; PULSE 88; RESP 22; O2SAT 98
[2023-09-23] MEDS: ONDANSETRON 4 MG ODT SL (09:25)
[2023-09-23] MEDS: LORazepam 0.5 MG TABLET 1 MG PO (09:26)
--- NOTE | 2023-09-23 09:59 | PC.NURSE ---
Patient expressed increased anxiety and this RN informed provider who ordered 1mg ativan po. This RN placed verbal order and gave the patient the medication and medication was consumed by patient. This RN went to perform 2 hour assessment and patient is resting with eyes closed and appears to be snoring. Patient chest can be seen rising and falling.
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
--- NOTE | 2023-09-23 12:49 | CM.SWNOTE ---
Addendum entered by HARMONY Dominguez 09/23/23 17:01: [employer] called [facility], pt packet is currently being declined due to low acuity (no SI and plan). damage prevention coordinator, Marnie, recommended pt be referred to PHP/IOP program if agreeable. PHP/IOP program is telehealth and will have psychiatrist on staff to assist with pt's goals of medication management. damage prevention coordinator offered to send pt's information to their PHP/IOP intake team to reach out to pt; stated pt should be contacted after the holiday weekend. [employer]ER called [facility] and inquired about pt's packet. It was reported that pt is low acuity but not being declined, other pts are being reviewed in their own ED. [employer]ER entered room and discussed these options with pt. Pt agreeable to PHP/IOP referral at [facility], agreed for this [employer]ER to fax clinicals (fax# [phone]) and leave a voice message with the [facility] PHP/IOP team. [employer]ER collaborated with pt on a safety plan for discharge. 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 [employer]ER offered to schedule a [facility] crisis responder to call pt at night for mental health check ins, pt accepted. [employer]ER called [facility] crisis line and scheduled a check in call for the pt in the evenings. Pt acknowledged how prn ativan has been helpful historically and is requesting this from ED provider for discharge. ED Provider and RN notified that pt is liset for safety and will have follow up care with [facility], MH Therapist, and IOP scheduled. Original Note: ED [employer] Note: [employer]ER called [facility] and requested to rescind packet sent for review by overnight staff, at the request of the patient. Patient has no preference to be transferred to that facility due to conflict of interest. [employer]ER called [facility], it was reported that there is one voluntary bed available but other packets were being reviewed as well. Clinical packet was faxed for review. [employer]ER called [facility], it was reported that there are no beds available until tomorrow. [employer]ER called [facility], it was reported that there is 1 voluntary bed available. Clinical packet was faxed for review. [employer]ER called [facility], it was reported that there are no female beds available. P[employer]ER called [facility], it was reported that there are no female beds available. Plan: ED Staff to continue to search for voluntary bed placement. Plan B: If pt can contract for safety, pt will be referred for IOP and psychiatric medication management services. JEOVANNY Flood
[2023-09-23 15:00] VITALS: BP 134/92; PULSE 79; O2SAT 96
[2023-09-23 15:30] VITALS: BP 180/116; PULSE 101; O2SAT 97
[2023-09-23 18:55] VITALS: BP 148/88; PULSE 82; RESP 16; TEMP 36.8; O2SAT 99
== END 2023-09-23 18:56 | disposition home or self-care (01) ==
PROVIDERS: Emergency Medicine; Emergency Provider Emergency Medicine; PCP Family Medicine
DX: F32.A Depression, unspecified (principal)
CPT/HCPCS: 80053; 80305; 80320; 80329; 81003; 81025; 84439; 84443; 85025; 99284; G0480

== ENCOUNTER → 2023-10-17 13:59 | Outpatient (CLI) | payer MEDICAID, SELFPAY ==
--- NOTE | 2023-10-17 14:01 | DI.RAD.S_ITS ---
PROCEDURE: XR HIP W PEL IF DONE SARAH MIN 4V INDICATIONS: Chronic hip pain, L>R TECHNIQUE: AP pelvis with lateral view(s) of the bilateral hip(s). COMPARISON: None. FINDINGS: Bones: No fractures or dislocations. Pelvic ring appears intact. No evidence of avascular necrosis of femoral head. No suspicious bony lesions. Soft tissues: The visualized bowel gas pattern is normal. No suspicious soft tissue calcifications. IMPRESSION: Unremarkable radiographic examination of bilateral hip. Dictated by: Ede Barnard M.D. on 10/17/2023 at 17:10 Approved by: Ede Barnard M.D. on 10/17/2023 at 17:10
--- NOTE | 2023-10-17 14:01 | DI.RAD.S_ITS ---
PROCEDURE: XR THORACIC SPINE 3V INDICATIONS: Chronic R side thoracic back pain TECHNIQUE: 3 views of the thoracic spine were acquired. COMPARISON: None. FINDINGS: Bones: No fractures or dislocations. Very mild rightward curvature of thoracic spine with apex at T8 level is seen. No suspicious bony lesions. 12 pairs of ribs are noted, and appear intact where visualized. Soft tissues: No paravertebral stripe thickening. IMPRESSION: No acute thoracic spine fracture or dislocation. Mild rightward curvature of thoracic spine centered at T8 level. No significant degenerative disc disease. Dictated by: Ede Barnard M.D. on 10/17/2023 at 17:10 Approved by: Ede Barnard M.D. on 10/17/2023 at 17:11
== END ==
PROVIDERS: PCP Family Medicine; Referring Provider Family Medicine; Visit Provider Family Medicine
DX: M25.551 Pain in right hip (principal); M25.552 Pain in left hip; G89.29 Other chronic pain; M54.6 Pain in thoracic spine
CPT/HCPCS: 72072; 73522

== ENCOUNTER 2024-01-20 09:50 | Emergency (ER) | payer OTHER, MEDICAID, SELFPAY ==
[2024-01-20 09:54] VITALS: BP 140/92; PULSE 83; RESP 16; TEMP 36.9; O2SAT 99; BMI 27.7
--- NOTE | 2024-01-20 10:37 | ED_ITS ---
HPI - Back Pain/Injury General Chief Complaint: Back Pain/Injury Stated Complaint: UTI,lower back pain Time Seen by Provider: 01/20/24 10:14 Source: patient Mode of arrival: Ambulatory Limitations: no limitations History of Present Illness HPI Narrative: Patient is a 33-year-old female. Has frequent urinary tract infections. A couple days ago started to have symptoms consistent with a urinary tract infection. Had a telehealth visit. Was started on Macrobid. Has taken a full 48 hours this medication. She states that the urinary symptoms that she was having have improved somewhat however the low back pain that she was having has actually somewhat worsened. No fevers. No vomiting. Is having subjective fevers. No abdominal pain. States she was feeling like she is emptying her bladder. No issues with constipation or diarrhea. No chest pain or shortness of breath. Related Data Allergies Allergy/AdvReac Type Severity Reaction Status Date / Time No Known Drug Allergies Allergy Unverified 10/17/23 12:23 Review of Systems Review of Systems ROS Unobtainable: All systems reviewed & are unremarkable except as noted in HPI and below Patient History Medical History Hx of ectopic (~2015) PTSD (post-traumatic stress disorder) (~2001) ADHD (~1999) Irregular menstrual cycle (~2006) Herpes (~2009) Frequent UTI (~2010) Chronic bilateral low back pain without sciatica Depression (~2001) Anxiety (~1997) Surgical History (Updated 11/09/23 @ 23:06 by Shilo Romero MD) Anesthesia History of tubal ligation (~04/2015) History of nasal septoplasty (08/02/17) Family History Father Diabetes mellitus Stroke Grandmother Cancer Social History Smoking Status: Former smoker Smoking Status: Former smoker alcohol intake frequency: a few times a week Alcohol type: beer and wine Substance Use Type: marijuana Exam Initial Vital Signs Initial Vital Signs: Vital Signs Temperature 98.4 F 01/20/24 09:54 Pulse Rate 83 01/20/24 09:54 Respiratory Rate 16 01/20/24 09:54 Blood Pressure 140/92 H 01/20/24 09:54 Pulse Oximetry 99 01/20/24 09:54 Oxygen Delivery Method Room Air 01/20/24 09:54 Const General: cooperative, comfortable and No ill appearing HENMT Head: normal to inspection and normocephalic Resp Effort & Inspection: normal respiratory effort Cardio Rate: regular rate GI Inspection: normal to inspection and non-distended Palpation: soft, No firm, No guarding and No tender Back/Spine/Pelvis Back: No CVA tenderness Thoracic/Lumbar Spine: No paraspinal tenderness, No thoracic spinal tenderness and lumbar spinal tenderness Skin General: no rashes or lesions noted Neuro General: patient alert, patient awake and moves all extremities Extrem General: capillary refill normal Course Orders Ordered: ED Orders 01/20/24 10:37 CT kidney ureter bladder (KUB) Stat Discontinued Medications Ketorolac Tromethamine (Ketorolac 30 Mg/Ml Vial) 30 mg IM NOW ONE Stop: 01/20/24 10:38 Last Admin: 01/20/24 10:54 Dose: 30 mg Documented By: JESSE Vital Signs Vital signs: Vital Signs - 8 hr 01/20/24 09:54 Temperature 98.4 F Pulse Rate 83 Respiratory Rate 16 Blood Pressure 140/92 H Pulse Oximetry 99 Oxygen Delivery Method Room Air MDM - Back Pain/Injury Lab Data Attestation: I reviewed the patient's lab results. Labs: Point of Care Testing Test Results Negative Urine Dip Bedside Urine Glucose Negative Bedside Urine Bilirubin - Negative Bedside Urine Ketone - Negative Urine Specific [place] 1.015 Bedside Urine Occult Blood - Negative Bedside Urine pH 6.0 Bedside Urine Protein - Negative Bedside Urine Urobilinogen - Negative Bedside Urine Nitrite - Negative Bedside Urine Leukocytes - Negative Esterase Imaging Data CT scan - abdomen/pelvis: Radiologist's Impression: PROCEDURE: CT KIDNEY URETER BLADDER (KUB) INDICATIONS: Dysuria and back pain eval for stone TECHNIQUE: Axial sections were acquired from the lung bases to the pubic symphysis. Coronal and sagittal reformats were performed. For radiation dose reduction, the following was used: automated exposure control, adjustment of mA and/or kV according to patient size. COMPARISON: None. FINDINGS: Image quality: Diagnostic. Lower Chest: No significant findings. URINARY: Right Kidney: No stones or hydronephrosis. 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 Left Kidney: No stones or hydronephrosis. Left Ureter: No hydroureter. Bladder: Normal wall thickness. No stones. ABDOMEN: Liver: No contour-deforming solid mass. Gallbladder: No radiopaque gallstones or wall thickening. Biliary ducts: No biliary dilation. Pancreas: No ductal dilation. Spleen: Size is within normal limits. Adrenal Glands: No adrenal nodules. Stomach and Bowel: Normal colonic caliber, without significant wall thickening. The appendix is not identified however no pericecal inflammatory changes. Peritoneum: No abnormal intraperitoneal fluid. No free air. Ventral Wall: No hernia. Abdominal Nodes: No enlarged retroperitoneal or mesenteric lymph nodes. Vessels: Aorta and inferior vena cava are normal in size. PELVIS: Pelvic Organs: Unremarkable. Pelvic Nodes: Unremarkable. Miscellaneous: No inguinal hernias are seen. Bones: Unremarkable. IMPRESSION: No obstructing stones or hydronephrosis. MDM Narrative Medical decision making narrative: Patient's urinalysis is negative today however she has been on 48 hours of antibiotics. She was treated presumptively with Macrobid given the symptoms that she was having and those symptoms do seem to be improving somewhat. I told her to continue the course of antibiotics. No indication to change any antibiotics today. She was having lower back discomfort that is well below the level of her kidneys. CT scan does not show any signs of kidney stone. She reports improvement of symptoms after the Toradol. Will discharge patient home with the instructions to take Tylenol and ibuprofen. She was given return precautions and follow-up instructions. She expressed understanding and agreement with plan. Discharge Plan Departure Patient Disposition: Home Clinical Impression: Low back pain, Urinary tract infection Instructions: DI for Low Back Pain Activity Restrictions/Additional Instructions: I recommend that you continue to take the antibiotic until you are done with the course. You can take Tylenol/ibuprofen for low back pain and discomfort. I have recommend that you talk with your primary doctor about the indications for referral secondary to your frequent urinary tract infections. Return to the emergency department for new or worsening symptoms. Referrals: Shilo Romero MD [Primary Care Provider] - Stand Alone Forms: Patient Portal/API
[2024-01-20] MEDS: KETOROLAC 30 MG/ML VIAL IM (10:54)
[2024-01-20 11:56] VITALS: BP 167/94; PULSE 67; RESP 20; O2SAT 99
[2024-01-20] MEDS: ONDANSETRON 4 MG ODT SL (12:02)
--- NOTE | 2024-01-20 12:02 | PC.NURSE ---
Pt had sudden onset emesis while going over discharge paperwork. Provider was notified. Provided pt with cold, wet wash cloth and mouth wash. New med orders.
== END 2024-01-20 12:10 | disposition home or self-care (01) ==
PROVIDERS: Emergency Provider Emergency Medicine; PCP Family Medicine
DX: M54.50 Low back pain, unspecified (principal); N39.0 Urinary tract infection, site not specified
CPT/HCPCS: 74176; 81003; 81025; 96372; 99284; J1885

== ENCOUNTER 2024-01-24 06:21 | Emergency (ER) | payer OTHER, MEDICAID, SELFPAY ==
[2024-01-24 06:24] VITALS: BP 154/90; PULSE 95; RESP 18; TEMP 36.9; O2SAT 100; BMI 27.7
--- NOTE | 2024-01-24 06:35 | ED_ITS ---
HPI - Female Genitourinary <Veronica Jean MD - Last Filed: 01/24/24 07:06> General Chief complaint: Vaginal Bleeding Stated complaint: bleeding and pelvic pain Time Seen by Provider: 01/24/24 06:23 Source: patient Mode of arrival: Ambulatory History of Present Illness HPI Narrative: 33-year-old female with no significant past medical history presents by private vehicle from home for severe cramping pelvic pain. Patient states that she has been on antibiotics for urinary tract infection and seemed to be getting better, however last night after having sex with her she notices small amount of bleeding. She reports progressively worsening pelvic pain cramping as well as low back pain. She took 2 ibuprofen and 2 Tylenol at home as well as Zofran, but before the Zofran could take effect she vomited. Patient was very tearful, stating that she has never been in pain like this before. Related Data Previous Rx's Medication Instructions Recorded ondansetron 4 mg disintegrating 4 mg PO Q6H PRN nausea and 01/20/24 tablet vomiting #10 tabs Allergies Allergy/AdvReac Type Severity Reaction Status Date / Time No Known Drug Allergies Allergy Unverified 10/17/23 12:23 Patient History <Veronica Jean MD - Last Filed: 01/24/24 07:06> Medical History Hx of ectopic (~2015) PTSD (post-traumatic stress disorder) (~2001) ADHD (~1999) Irregular menstrual cycle (~2006) Herpes (~2009) Frequent UTI (~2010) Chronic bilateral low back pain without sciatica Depression (~2001) Anxiety (~1997) Surgical History Anesthesia History of tubal ligation (~04/2015) History of nasal septoplasty (08/02/17) Family History Father Diabetes mellitus Stroke Grandmother Cancer alcohol intake frequency: a few times a week Alcohol type: beer and wine Substance Use Type: marijuana Exam <Veronica Jean MD - Last Filed: 01/24/24 07:06> Initial Vital Signs Initial Vital Signs: Vital Signs Temperature 98.5 F 01/24/24 06:24 Pulse Rate 95 H 01/24/24 06:24 Respiratory Rate 18 01/24/24 06:24 Blood Pressure 154/90 H 01/24/24 06:24 Pulse Oximetry 100 01/24/24 06:24 Oxygen Delivery Method Room Air 01/24/24 06:24 Const: Awake, alert, tearful, nontoxic appearing Cardiac: regular rate, regular rhythm RESP: unlabored, clear bilaterally, no wheezing GI: Soft, nontender, nondistended MSK: Atraumatic, full range of motion, pulses equal, no CVA tenderness Skin: Warm, Dry, intact, no rashes Neuro: AO x3, CN II-XII grossly intact, moves all extremities <Maria L Elliott DO - Last Filed: 01/24/24 09:07> Initial Vital Signs Initial Vital Signs: Vital Signs Temperature 98.5 F 01/24/24 06:24 Pulse Rate 95 H 01/24/24 06:24 Respiratory Rate 18 01/24/24 06:24 Blood Pressure 154/90 H 01/24/24 06:24 Pulse Oximetry 100 01/24/24 06:24 Oxygen Delivery Method Room Air 01/24/24 06:24 Course <Veronica Jean MD - Last Filed: 01/24/24 07:06> Orders Ordered: ED Orders 01/24/24 06:34 US transvaginal Stat 01/24/24 06:45 Acetaminophen Stat CBC Auto Diff [Complete Blood Count AUTO DIFF] Stat CMP [Comprehensive Metabolic Panel] Stat ETOH [Ethanol (ETOH)] Stat Lipase Stat 01/24/24 07:13 Urine Culture Stat Urine Microscopic Stat 01/24/24 07:19 US abdomen limited Stat Discontinued Medications Ketorolac Tromethamine (Ketorolac 30 Mg/Ml Vial) 15 mg IV NOW ONE Stop: 01/24/24 06:35 Last Admin: 01/24/24 06:52 Dose: 15 mg Documented By: AB Lorazepam (Lorazepam 2 Mg/Ml Inj) 1 mg IV NOW ONE Stop: 01/24/24 06:51 Last Admin: 01/24/24 06:54 Dose: 1 mg Documented By: AB Vital Signs Vital signs: Vital Signs - 8 hr 01/24/24 06:24 01/24/24 06:37 01/24/24 06:39 Temperature 98.5 F Pulse Rate 95 H 93 H 84 Respiratory Rate 18 Blood Pressure 154/90 H Pulse Oximetry 100 100 100 Oxygen Delivery Method Room Air Room Air 01/24/24 06:39 01/24/24 09:02 Temperature 97.7 F Pulse Rate 68 Respiratory Rate 16 Blood Pressure 164/111 H 146/84 H Pulse Oximetry 98 Oxygen Delivery Method Room Air <Maria L Elliott DO - Last Filed: 01/24/24 09:07> Orders Ordered: ED Orders 01/24/24 06:34 US transvaginal Stat 01/24/24 06:45 Acetaminophen Stat CBC Auto Diff [Complete Blood Count AUTO DIFF] Stat CMP [Comprehensive Metabolic Panel] Stat ETOH [Ethanol (ETOH)] Stat Lipase Stat 01/24/24 07:13 Urine Culture Stat Urine Microscopic Stat 01/24/24 07:19 US abdomen limited Stat Discontinued Medications Ketorolac Tromethamine (Ketorolac 30 Mg/Ml Vial) 15 mg IV NOW ONE Stop: 01/24/24 06:35 Last Admin: 01/24/24 06:52 Dose: 15 mg Documented By: AB Lorazepam (Lorazepam 2 Mg/Ml Inj) 1 mg IV NOW ONE Stop: 01/24/24 06:51 Last Admin: 01/24/24 06:54 Dose: 1 mg Documented By: AB Vital Signs Vital signs: Vital Signs - 8 hr 01/24/24 06:24 01/24/24 06:37 01/24/24 06:39 Temperature 98.5 F Pulse Rate 95 H 93 H 84 Respiratory Rate 18 Blood Pressure 154/90 H Pulse Oximetry 100 100 100 Oxygen Delivery Method Room Air Room Air 01/24/24 06:39 01/24/24 09:02 Temperature 97.7 F Pulse Rate 68 Respiratory Rate 16 Blood Pressure 164/111 H 146/84 H Pulse Oximetry 98 Oxygen Delivery Method Room Air MDM - Female Genitourinary <Veronica Jean MD - Last Filed: 01/24/24 07:06> Lab Data 01/24/24 06:45 01/24/24 06:45 Labs: Lab Results 01/24/24 01/24/24 Range/Units 06:45 07:13 WBC 5.2 (4.5-11.0) X10^3/uL RBC 4.25 (4.0-5.2) X10^6/uL Hgb 13.1 (12.0-16.0) g/dL Hct 39.2 (36-46) % MCV 92.2 (80-100) fL MCH 30.9 (26-34) PG MCHC 33.5 (30-36) % RDW 13.8 (11.6-14.8) % Plt Count 252 (150-400) X10^3/uL Neut % (Auto) 63.7 (50-75) % Lymph % (Auto) 23.5 L (25-40) % [place] % (Auto) 10.2 (3-14) % Eos % (Auto) 2.2 (2-4) % Baso % (Auto) 0.4 (0-2) % Neut # (Auto) 3300 (8138-6439) /uL Lymph # (Auto) 1200 (8131-9973) /uL [place] # (Auto) 500 (0-900) /uL Eos # (Auto) 100 (0-450) /uL Baso # (Auto) 0 (0-100) /uL Sodium 138 (137-145) mmol/L Potassium 3.6 (3.4-5.1) mmol/L Chloride 103 (98-107) mmol/L Carbon Dioxide 28 (22-32) mmol/L BUN 8 (7-17) mg/dL Creatinine 0.74 (0.52-1.04) mg/dL Estimated GFR > 60 (>60) mL/min BUN/Creatinine Ratio 10.8 (6-22) Glucose 125 H (70-100) mg/dL Calcium 9.5 (8.4-10.2) mg/dL Total Bilirubin 1.4 H (0.2-1.3) mg/dL AST 434 H (14-36) IU/L ALT 891 H (<35) IU/L Alkaline Phosphatase 157 H (38-126) U/L Total Protein 7.3 (6.3-8.2) g/dL Albumin 4.3 (3.5-5.0) g/dL Globulin 3.0 (1.7-4.1) g/dL Albumin/Globulin Ratio 1.4 (1.0-2.8) Lipase 55 (23-300) U/L Urine RBC None seen (0-5/HPF) Urine WBC None seen (0-5/HPF) Ur Squamous Epith Cells 1-5 /hpf (0-5/HPF) Urine Bacteria None seen (None) Ur Culture Indicated? Cult not indicated Vol Urine Centrifuged 10ml (spun) Acetaminophen < 10 (10-30) ug/mL Ethyl Alcohol < 10 ( - 10) mg/dL Point of Care Testing Test Results Negative Urine Dip Bedside Urine Glucose Negative Bedside Urine Bilirubin - Negative Bedside Urine Ketone - Negative Urine Specific [place] 1.010 Bedside Urine Occult Blood +++ Bedside Urine pH 6.5 Bedside Urine Protein +/- 15 Bedside Urine Urobilinogen - Negative Bedside Urine Nitrite - Negative Bedside Urine Leukocytes - Negative Esterase MDM Narrative Medical decision making narrative: 24 hours of low pelvic pain and low back pain. Patient had negative test on 01/19. Abdomen soft, no reproducible tenderness to palpation. Laboratory work, Toradol, ultrasound imaging ordered for assessment. Patient reports a lot of anxiety around pelvic exams, a small dose of ativan ordered. Labs and imaging pending. Care of patient signed to Dr. Elliott at 0700 <Maria L Elliott, - Last Filed: 01/24/24 09:07> Lab Data Labs: Lab Results 01/24/24 01/24/24 Range/Units 06:45 07:13 WBC 5.2 (4.5-11.0) X10^3/uL RBC 4.25 (4.0-5.2) X10^6/uL Hgb 13.1 (12.0-16.0) g/dL Hct 39.2 (36-46) % MCV 92.2 (80-100) fL MCH 30.9 (26-34) PG MCHC 33.5 (30-36) % RDW 13.8 (11.6-14.8) % Plt Count 252 (150-400) X10^3/uL Neut % (Auto) 63.7 (50-75) % Lymph % (Auto) 23.5 L (25-40) % [place] % (Auto) 10.2 (3-14) % Eos % (Auto) 2.2 (2-4) % Baso % (Auto) 0.4 (0-2) % Neut # (Auto) 3300 (0693-3097) /uL Lymph # (Auto) 1200 (8701-8877) /uL [place] # (Auto) 500 (0-900) /uL Eos # (Auto) 100 (0-450) /uL Baso # (Auto) 0 (0-100) /uL Sodium 138 (137-145) mmol/L Potassium 3.6 (3.4-5.1) mmol/L Chloride 103 (98-107) mmol/L Carbon Dioxide 28 (22-32) mmol/L BUN 8 (7-17) mg/dL Creatinine 0.74 (0.52-1.04) mg/dL Estimated GFR > 60 (>60) mL/min BUN/Creatinine Ratio 10.8 (6-22) Glucose 125 H (70-100) mg/dL Calcium 9.5 (8.4-10.2) mg/dL Total Bilirubin 1.4 H (0.2-1.3) mg/dL AST 434 H (14-36) IU/L ALT 891 H (<35) IU/L Alkaline Phosphatase 157 H (38-126) U/L Total Protein 7.3 (6.3-8.2) g/dL Albumin 4.3 (3.5-5.0) g/dL Globulin 3.0 (1.7-4.1) g/dL Albumin/Globulin Ratio 1.4 (1.0-2.8) Lipase 55 (23-300) U/L Urine RBC None seen (0-5/HPF) Urine WBC None seen (0-5/HPF) Ur Squamous Epith Cells 1-5 /hpf (0-5/HPF) Urine Bacteria None seen (None) Ur Culture Indicated? Cult not indicated Vol Urine Centrifuged 10ml (spun) Acetaminophen < 10 (10-30) ug/mL Ethyl Alcohol < 10 ( - 10) mg/dL Point of Care Testing Test Results Negative Urine Dip Bedside Urine Glucose Negative Bedside Urine Bilirubin - Negative Bedside Urine Ketone - Negative Urine Specific [place] 1.010 Bedside Urine Occult Blood +++ Bedside Urine pH 6.5 Bedside Urine Protein +/- 15 Bedside Urine Urobilinogen - Negative Bedside Urine Nitrite - Negative Bedside Urine Leukocytes - Negative Esterase Imaging Data US - SURGICAL ASST: Radiologist's Impression: PROCEDURE: US TRANSVAGINAL INDICATIONS: severe pelvic pain, not TECHNIQUE: Real-time scanning was performed of the pelvic organs, with image documentation. Additional endovaginal scanning was necessary due to incomplete visualization of the adnexal and endometrial structures by transabdominal scanning. COMPARISON: None. FINDINGS: Uterus: Uterus is retroflexed and normal in size at 5.5 x 4.3 x 3.1 cm. The myometrium is homogeneous. The endometrium measures 3 mm combined thickness. Ovaries: The right ovary measures 2.8 x 3.1 x 1.8 cm, with a calculated ovarian volume of 8 cc. The left ovary measures 3.0 x 1.4 x 1.8 cm, with a calculated ovarian volume of or cc. The ovaries have a normal sonographic appearance. Less than 12 follicles can be seen in each ovary. No adnexal masses are seen. Other: No pathologic free abdominal or pelvic fluid. IMPRESSION: No cause for patient's pain is identified. Normal appearance of the uterus and ovaries. We strive to produce accurate, complete, and clear reports of imaging services. To assist us in improving patient care, this report was composed using standard report templates and voice recognition software. Therefore, it may contain abnormal punctuation, insertions and/or omissions. Occasional wrong-word or sound-alike substitutions may occur. Though we review the report and make efforts to correct it, we do recommend that the report be read carefully in proper context to recognize any text inaccuracies. Dictated by: Neo Newsome M.D. on 01/24/2024 at 8:00 Approved by: Neo Newsome M.D. on 01/24/2024 at 8:0 US - abdomen: Radiologist's Impression: PROCEDURE: US ABDOMEN LIMITED INDICATIONS: elevated bili and liver enzymes TECHNIQUE: Real-time scanning was performed of the abdominal and retroperitoneal organs, with image documentation. COMPARISON: [facility], CT, CT KIDNEY URETER BLADDER (KUB), 01/20/2024, 10:46. FINDINGS: Liver: Liver is normal in size and homogeneous in echotexture. Gallbladder: No gallstones. No wall thickening. No pericholecystic edema. Negative sonographic Chan's sign. Biliary ducts: Intrahepatic bile ducts are non-dilated. Extrahepatic bile duct caliber measures 3 mm. Normal is 6-7 mm or less in diameter, or 10 mm or less post-cholecystectomy. Pancreas: Visualized portions of the pancreas are sonographically normal. Pancreatic tail is not visualized. Miscellaneous: No free abdominal fluid. IMPRESSION: No cause for patient's symptoms is identified. Normal appearance of the liver and gallbladder. Dictated by: Neo Newsome M.D. on 01/24/2024 at 8:01 [facility] Narrative Medical decision making narrative: 24 hours of low pelvic pain and low back pain. Patient had negative test on 01/19. Abdomen soft, no reproducible tenderness to palpation. Laboratory work, Toradol, ultrasound imaging ordered for assessment. Patient reports a lot of anxiety around pelvic exams, a small dose of ativan ordered. Labs and imaging pending. Care of patient signed to Dr. Elliott at 0700 Dr. Elliott-patient signed out to me by Dr. Jean I have seen evaluated patient myself. She reports that after intercourse last night she started having lower lumbar pain. It wrapped around to her pelvic area. She is currently on her menstrual cycle. She has having a normal menstrual cycle. Started having some bleeding 4 days ago it has decreased significantly, she uses a menstrual cup which is normal for her. She denies any sort of injury there. She reports consented intercourse without any foreign objects. She has been having ongoing pelvic and abdominal pain but suddenly it is much worse. She says during her menstrual cycle with a weeks she has had ibuprofen and Tylenol. She says she has been taking Motrin and Tylenol about a 1000 mg every 4-6 hours but she does not think she is taken more than 3 doses in a day. She also reports drinking alcohol last alcoholic drink was 8 days ago. She does report heavy drinking over the summer but she has decreased significantly since she started going back to work. Blood work has been reviewed she has no leukocytosis however bilirubin is noted to be elevated at 1.4, AST 434 ALT 891 alk-phos is 157 lipase 55 Urinalysis positive for blood but negative for She who is seen evaluated here 01/20/2024 she had a noncontrasted CT KUB any urinalysis for UTI like symptoms. No nephrolithiasis was found. Liver did not show any mass and no ductal dilatation Blood work was not done. Liver enzymes are significantly more elevated today than they were in August 2023. On exam she has absolutely no right upper quadrant pain. Very minimal suprapubic lower abdominal pain. No significant CVA tenderness I do not suspect Frits-Ramana- Cornel syndrome without right upper quadrant pain. She reports heavy alcohol use over the summer. I suspect liver enzymes are elevated secondary to alcohol use. Tylenol level is negative. And she reports she has not taken Tylenol more than 3 times a day. Low suspicion for Tylenol overdose. Platelets are within normal limits she has no evidence of anemia. No evidence of pancreatitis Abdomen continues to be soft nontender. Minimal lower abdominal tenderness without evidence of ovarian torsion ovarian cyst. We discussed possibility of pelvic exam however at this time she declines, she would like a Pap smear which I have explained her that we do not do here but have encouraged her to follow-up with her PCP whom she has to get a Pap smear. Discharge Plan Departure Patient Disposition: Home Clinical Impression: Back pain, Elevated liver enzymes Instructions: Alcohol Use Disorder Activity Restrictions/Additional Instructions: *You have been diagnosed with back pain/pelvic pain and elevated liver enzymes *What to do: At this time I do recommend that you sustained from alcohol. I suspect that your liver enzymes are elevated from alcohol use. Please call Dr. Romero to have blood work rechecked and followed. *Continue to take medications as directed DO NOT TAKE TYLENOL/ACETAMINOPHEN Motrin 600 mg every 6-8 hours for [id number] pain *Follow up with your primary care provider in 2-3 days or call [phone] *Return to ER if you should have increasing abdominal pain nausea vomiting black stool vomiting blood or any new, worsening or concerning symptoms Prescriptions: No Action ondansetron 4 mg tablet,disintegrating 4 mg PO Q6H PRN (Reason: nausea and vomiting) Qty: 10 0RF Referrals: Shilo Romero MD [Primary Care Provider] - Stand Alone Forms: Patient Portal/API
[2024-01-24 06:37] VITALS: PULSE 93; O2SAT 100
[2024-01-24 06:39] VITALS: BP 164/111; PULSE 84; O2SAT 100
[2024-01-24] MEDS: KETOROLAC 30 MG/ML VIAL 15 MG IV (06:52)
[2024-01-24] MEDS: LORazepam 2 MG/ML INJ 1 MG IV (06:54)
[2024-01-24 06:55] LABS: Add Manual Diff / Slide Review NO; Basophils Absolute Auto 0 /uL (0-100); Basophils Percent Auto 0.4 % (0-2); Eosinophils Absolute Auto 100 /uL (0-450); Eosinophils Percent Auto 2.2 % (2-4); Hematocrit 39.2 % (36-46); Hemoglobin 13.1 g/dL (12.0-16.0); Lymphocytes Absolute Auto 1200 /uL (1100-4500); Lymphocytes Percent Auto 23.5 % (25-40); Mean Corpuscular HGB Conc 33.5 % (30-36); Mean Corpuscular Hemoglobin 30.9 PG (26-34); Mean Corpuscular Volume 92.2 fL (80-100); Monocytes Absolute Auto 500 /uL (0-900); Monocytes Percent Auto 10.2 % (3-14); Neutrophils Absolute Auto 3300 /uL (1500-7000); Neutrophils Percent Auto 63.7 % (50-75); Platelet Count 252 X10^3/uL (150-400); Red Blood Cell Count 4.25 X10^6/uL (4.0-5.2); Red Cell Distribution Width 13.8 % (11.6-14.8); White Blood Cell Count 5.2 X10^3/uL (4.5-11.0)
[2024-01-24 07:13] LABS: Albumin 4.3 g/dL (3.5-5.0); Albumin Globulin Ratio 1.4 (1.0-2.8); Alkaline Phosphatase 157 U/L (38-126); Aspartate Aminotransferase 434 IU/L (14-36); BUN Creatinine Ratio 10.8 (6-22); Bilirubin Total 1.4 mg/dL (0.2-1.3); Blood Urea Nitrogen 8 mg/dL (7-17); Calcium 9.5 mg/dL (8.4-10.2); Carbon Dioxide 28 mmol/L (22-32); Chloride 103 mmol/L (98-107); Estimated Glomerular Filt Rate > 60 mL/min (>60); Glucose 125 mg/dL (70-100); HEMOLYSIS < 15 (0-50); Potassium 3.6 mmol/L (3.4-5.1); Sodium 138 mmol/L (137-145); Total Protein 7.3 g/dL (6.3-8.2)
--- NOTE | 2024-01-24 07:19 | DI.US.S_ITS ---
PROCEDURE: US ABDOMEN LIMITED INDICATIONS: elevated bili and liver enzymes TECHNIQUE: Real-time scanning was performed of the abdominal and retroperitoneal organs, with image documentation. COMPARISON: [facility], CT, CT KIDNEY URETER BLADDER (KUB), 01/20/2024, 10:46. FINDINGS: Liver: Liver is normal in size and homogeneous in echotexture. Gallbladder: No gallstones. No wall thickening. No pericholecystic edema. Negative sonographic Chan's sign. Biliary ducts: Intrahepatic bile ducts are non-dilated. Extrahepatic bile duct caliber measures 3 mm. Normal is 6-7 mm or less in diameter, or 10 mm or less post-cholecystectomy. Pancreas: Visualized portions of the pancreas are sonographically normal. Pancreatic tail is not visualized. Miscellaneous: No free abdominal fluid. IMPRESSION: No cause for patient's symptoms is identified. Normal appearance of the liver and gallbladder. Dictated by: Neo Newsome M.D. on 01/24/2024 at 8:01 Approved by: Neo Newsome M.D. on 01/24/2024 at 8:02
[2024-01-24 07:20] LABS: Alanine Aminotransferase 891 IU/L (<35)
--- NOTE | 2024-01-24 07:32 | PC.NURSE ---
JEWISH [employer]OUGHT PROFESSOR Note: I entered the room with the library acquisitions technician as a reproduction specialist at 0705 per patient request.
[2024-01-24 07:51] LABS: Acetaminophen < 10 ug/mL (10-30)
[2024-01-24 07:55] LABS: Urine Volume 10mL (spun)
[2024-01-24 07:58] LABS: Bacteria Urine None Seen; Culture Indicated Urine Cult Not Indicated; RBC Urine None Seen (0-5/HPF); Squamous Epithelial Cell Urine 1-5 /HPF (0-5/HPF); WBC Urine None Seen (0-5/HPF)
[2024-01-24 08:16] LABS: Lipase 55 U/L (23-300)
[2024-01-24 08:36] LABS: Ethanol (ETOH) < 10 mg/dL
[2024-01-24 09:02] VITALS: BP 146/84; PULSE 68; RESP 16; TEMP 36.5; O2SAT 98
== END 2024-01-24 09:04 | disposition home or self-care (01) ==
PROVIDERS: Emergency Medicine; Emergency Provider Emergency Medicine; PCP Family Medicine
DX: M54.50 Low back pain, unspecified (principal); R74.8 Abnormal levels of other serum enzymes; R10.2 Pelvic and perineal pain
CPT/HCPCS: 36415; 76705; 76830; 80053; 80320; 80329; 81003; 81015; 81025; 83690; 85025; 87086; 93975; 96374; 96375; 99284; G0480; J1885; J2060

== ENCOUNTER 2024-01-25 19:23 | Emergency (ER) | payer OTHER, SELFPAY ==
[2024-01-25 19:26] VITALS: BP 180/102; PULSE 85; RESP 12; TEMP 36.8; O2SAT 99; BMI 27.7
[2024-01-25 20:22] LABS: Appearance Urine UA CLEAR; Bilirubin Urine UA NEGATIVE (NEGATIVE); Color Urine UA YELLOW; Glucose Urine UA NEGATIVE (Negative); Ketones Urine UA TRACE (NEGATIVE); Leukocyte Esterase Urine UA NEGATIVE (NEGATIVE); Nitrite Urine UA NEGATIVE (Negative); Occult Blood Urine UA NEGATIVE (Negative); Protein Urine UA NEGATIVE (Negative); Specific Gravity Urine UA <=1.005 (1.000-1.035); Urobilinogen Urine UA 0.2 E.U./dL (0.2)
[2024-01-25 20:31] LABS: Bacteria Urine Occasional (0-1); Culture Indicated Urine Cult Not Indicated; RBC Urine None Seen (0-5/HPF); Squamous Epithelial Cell Urine 0-1 /HPF (0-5/HPF); Urine Volume 10mL (spun); WBC Urine None Seen (0-5/HPF)
[2024-01-25 20:31] LABS: Add Manual Diff / Slide Review NO; Basophils Absolute Auto 0 /uL (0-100); Basophils Percent Auto 0.4 % (0-2); Eosinophils Absolute Auto 100 /uL (0-450); Eosinophils Percent Auto 0.9 % (2-4); Hematocrit 39.6 % (36-46); Hemoglobin 13.4 g/dL (12.0-16.0); Lymphocytes Absolute Auto 2400 /uL (1100-4500); Lymphocytes Percent Auto 32.1 % (25-40); Mean Corpuscular HGB Conc 33.8 % (30-36); Mean Corpuscular Hemoglobin 31.2 PG (26-34); Mean Corpuscular Volume 92.2 fL (80-100); Monocytes Absolute Auto 600 /uL (0-900); Monocytes Percent Auto 7.9 % (3-14); Neutrophils Absolute Auto 4300 /uL (1500-7000); Neutrophils Percent Auto 58.7 % (50-75); Platelet Count 287 X10^3/uL (150-400); Red Blood Cell Count 4.29 X10^6/uL (4.0-5.2); Red Cell Distribution Width 13.9 % (11.6-14.8); White Blood Cell Count 7.3 X10^3/uL (4.5-11.0)
[2024-01-25 20:47] LABS: Pregnancy Test Serum,Qual Negative (Negative)
[2024-01-25 20:48] LABS: Albumin 4.4 g/dL (3.5-5.0); Albumin Globulin Ratio 1.3 (1.0-2.8); Alkaline Phosphatase 157 U/L (38-126); Bilirubin Total 0.8 mg/dL (0.2-1.3); Blood Urea Nitrogen 9 mg/dL (7-17); Calcium 9.8 mg/dL (8.4-10.2); Carbon Dioxide 26 mmol/L (22-32); Chloride 101 mmol/L (98-107); Estimated Glomerular Filt Rate > 60 mL/min (>60); Globulin 3.5 g/dL (1.7-4.1); Glucose 97 mg/dL (70-100); HEMOLYSIS < 15 (0-50); Lipase 55 U/L (23-300); Potassium 3.6 mmol/L (3.4-5.1); Sodium 135 mmol/L (137-145); Total Protein 7.9 g/dL (6.3-8.2)
[2024-01-25 20:55] VITALS: BP 142/86; PULSE 62; RESP 18; O2SAT 99
[2024-01-25 21:01] LABS: Alanine Aminotransferase 1215 IU/L (<35); Aspartate Aminotransferase 697 IU/L (14-36)
[2024-01-25] MEDS: KETOROLAC 30 MG/ML VIAL 15 MG IV (21:01)
[2024-01-25 21:31] LABS: Acetaminophen < 10 ug/mL (10-30); Ethanol (ETOH) < 10 mg/dL
[2024-01-25 21:51] LABS: Urine N gonorrhoeae NOT DETECTED
[2024-01-25 21:52] LABS: Urine Chlamydia NOT DETECTED
--- NOTE | 2024-01-25 22:14 | ED.GENADULT ---
HPI - General Adult General Chief complaint: Abdominal Pain Stated complaint: returning, cant eat, abd px Time Seen by Provider: 01/25/24 19:44 Source: patient Mode of arrival: Ambulatory History of Present Illness HPI narrative: Patient is a 33-year-old female. Third visit in the past week for evaluation of lower back discomfort. She was also been seen for vaginal bleeding and pelvic discomfort. She has a follow-up with her primary doctor scheduled for Sunday of next week. She comes in the emergency department today stating that earlier this week she had sexual intercourse. Afterwards had quite a bit of pelvic discomfort and vaginal bleeding. This has been happening after intercourse for at least the past year if not longer. During her last to emergency department visit she has had a CT scan of her abdomen and pelvis which was unremarkable. Had an abdominal ultrasound specifically focusing on the right upper quadrant because of elevation in her LFTs that was unremarkable. Has had a pelvic ultrasound that was unremarkable. No infectious source of her discomfort was found. She states that she was having problems eating at home. She states that she was having nausea despite the medications. No vomiting. Is able to tolerate fluids. She states the food just isn't tasting good to her. When she contacted her primary doctor's office they advised she come to the emergency department for further evaluation. Related Data Previous Rx's Medication Instructions Recorded ondansetron 4 mg disintegrating 4 mg PO Q6H PRN nausea and 01/20/24 tablet vomiting #10 tabs ondansetron 4 mg disintegrating 4 mg PO Q6H PRN nausea and 01/25/24 tablet vomiting #14 tabs promethazine 25 mg tablet 25 mg PO Q6H PRN nausea and 01/25/24 vomiting #10 tabs Allergies Allergy/AdvReac Type Severity Reaction Status Date / Time No Known Drug Allergies Allergy Unverified 10/17/23 12:23 Review of Systems Review of Systems ROS Unobtainable: All systems reviewed & are unremarkable except as noted in HPI and below Patient History Medical History Hx of ectopic (~2015) PTSD (post-traumatic stress disorder) (~2001) ADHD (~1999) Irregular menstrual cycle (~2006) Herpes (~2009) Frequent UTI (~2010) Chronic bilateral low back pain without sciatica Depression (~2001) Anxiety (~1997) Surgical History Anesthesia History of tubal ligation (~04/2015) History of nasal septoplasty (08/02/17) Family History Father Diabetes mellitus Stroke Grandmother Cancer Social History Smoking Status: Former smoker Smoking Status: Former smoker alcohol intake frequency: a few times a week Alcohol type: beer and wine Substance Use Type: marijuana Exam Initial Vital Signs Initial Vital Signs: Vital Signs Temperature 98.3 F 01/25/24 19:26 Pulse Rate 85 01/25/24 19:26 Respiratory Rate 12 01/25/24 19:26 Blood Pressure 180/102 H 01/25/24 19:26 Pulse Oximetry 99 01/25/24 19:26 Oxygen Delivery Method Room Air 01/25/24 19:26 Const General: cooperative, comfortable and No ill appearing HENNE Head: normal to inspection and normocephalic Resp Effort & Inspection: normal respiratory effort Cardio Rate: regular rate GI Inspection: non-distended Neuro General: patient alert and patient awake Extrem General: normal to inspection Course Orders Ordered: ED Orders 01/25/24 20:11 Acetaminophen Stat Complete Blood Count AUTO DIFF Stat Comprehensive Metabolic Panel Stat Ethanol (ETOH) Stat Lipase Stat Test Serum,Qual Stat 01/25/24 20:12 Chlamydia Gonorrhea PCR -URINE Stat Urinalysis and Microscopic Stat 01/25/24 21:45 Hepatitis Acute Panel Stat Discontinued Medications Ketorolac Tromethamine (Ketorolac 30 Mg/Ml Vial) 15 mg IV NOW ONE Stop: 01/25/24 20:57 Last Admin: 01/25/24 21:01 Dose: 15 mg Documented By: MAGUE Ondansetron HCl (Ondansetron 4 Mg Odt Prepack) 1 bottle MISC DIRECTED ONE Stop: 01/25/24 22:15 Last Admin: 01/25/24 22:19 Dose: 1 bottle Documented By: HNG Vital Signs Vital signs: Vital Signs - 8 hr 01/25/24 19:26 01/25/24 20:55 01/25/24 22:19 Temperature 98.3 F Pulse Rate 85 62 70 Respiratory Rate 12 18 Blood Pressure 180/102 H 142/86 H 158/94 H Pulse Oximetry 99 99 98 Oxygen Delivery Method Room Air Room Air Room Air Medical Decision Making Medical Records Medical records reviewed: Yes I reviewed the patient's medical records. Lab Data Lab results reviewed: Yes I reviewed the patient's lab results. 01/25/24 20:11 01/25/24 20:11 Labs: Lab Results 01/25/24 01/25/24 Range/Units 20:11 20:12 WBC 7.3 (4.5-11.0) X10^3/uL RBC 4.29 (4.0-5.2) X10^6/uL Hgb 13.4 (12.0-16.0) g/dL Hct 39.6 (36-46) % MCV 92.2 (80-100) fL MCH 31.2 (26-34) PG MCHC 33.8 (30-36) % RDW 13.9 (11.6-14.8) % Plt Count 287 (150-400) X10^3/uL Neut % (Auto) 58.7 (50-75) % Lymph % (Auto) 32.1 (25-40) % Wilson % (Auto) 7.9 (3-14) % Eos % (Auto) 0.9 L (2-4) % Baso % (Auto) 0.4 (0-2) % Neut # (Auto) 4300 (5826-8206) /uL Lymph # (Auto) 2400 (3141-9538) /uL Wilson # (Auto) 600 (0-900) /uL Eos # (Auto) 100 (0-450) /uL Baso # (Auto) 0 (0-100) /uL Sodium 135 L (137-145) mmol/L Potassium 3.6 (3.4-5.1) mmol/L Chloride 101 (98-107) mmol/L Carbon Dioxide 26 (22-32) mmol/L BUN 9 (7-17) mg/dL Creatinine 0.69 (0.52-1.04) mg/dL Estimated GFR > 60 (>60) mL/min BUN/Creatinine Ratio 13.0 (6-22) Glucose 97 (70-100) mg/dL Calcium 9.8 (8.4-10.2) mg/dL Total Bilirubin 0.8 (0.2-1.3) mg/dL AST 697 H (14-36) IU/L ALT 1215 H (<35) IU/L Alkaline Phosphatase 157 H (38-126) U/L Total Protein 7.9 (6.3-8.2) g/dL Albumin 4.4 (3.5-5.0) g/dL Globulin 3.5 (1.7-4.1) g/dL Albumin/Globulin Ratio 1.3 (1.0-2.8) Lipase 55 (23-300) U/L Serum , Qual Negative (Negative) Urine Color Yellow Urine Appearance Clear Urine pH 6.0 (4.5-8.0) Ur Specific [place] <=1.005 (1.000-1.035) Urine Protein Negative (Negative) Urine Glucose (UA) Negative (Negative) g/dL Urine Ketones Trace H (NEGATIVE) Urine Occult Blood Negative (Negative) Urine Nitrate Negative (Negative) Urine Bilirubin Negative (NEGATIVE) Urine Urobilinogen 0.2 (0.2) E.U./dL Ur Leukocyte Esterase Negative (NEGATIVE) Urine RBC None seen (0-5/HPF) Urine WBC None seen (0-5/HPF) Ur Squamous Epith Cells 0-1 /hpf (0-5/HPF) Urine Bacteria Occasional (0-1) (None) Ur Culture Indicated? Cult not indicated Vol Urine Centrifuged 10ml (spun) Acetaminophen < 10 (10-30) ug/mL Ethyl Alcohol < 10 ( - 10) mg/dL Ur Chlamydia DNA (PCR) Not detected N gonorrhoeae DNA (PCR) Not detected Point of Care Testing Test Results Negative Urine Dip Bedside Urine Glucose Negative Bedside Urine Bilirubin - Negative Bedside Urine Ketone +/- 5 Urine Specific [place] 1.005 Bedside Urine Occult Blood - Negative Bedside Urine pH 6.0 Bedside Urine Protein - Negative Bedside Urine Urobilinogen - Negative Bedside Urine Nitrite - Negative Bedside Urine Leukocytes - Negative Esterase Point of care testing: Point of Care Testing Test Results Negative Urine Dip Bedside Urine Glucose Negative Bedside Urine Bilirubin - Negative Bedside Urine Ketone +/- 5 Urine Specific [place] 1.005 Bedside Urine Occult Blood - Negative Bedside Urine pH 6.0 Bedside Urine Protein - Negative Bedside Urine Urobilinogen - Negative Bedside Urine Nitrite - Negative Bedside Urine Leukocytes - Negative Esterase [facility] Narrative Medical decision making narrative: Patient has had an extensive workup to include CT scans and ultrasounds. She continues to have elevation in her LFTs today although I do not have a specific cause of this. She understands that there has a hepatitis panel that is still pending and she will talk with her primary doctor about the results of this when she was an appointment next week. Her gonorrhea and chlamydia tests are negative. Urinalysis is unremarkable. Afebrile and no leukocytosis. Unfortunately I do not have a specific source of her discomfort however no further workup is required in the emergency department. She may benefit from a referral to see transmitter chief given her vaginal bleeding after sexual intercourse and also her pelvic pain. She may also benefit from a referral to see Gastroenterology given her elevation in her LFTs. She was advised that she can talk with her primary doctor about these referrals when she has a follow-up with them on Sunday of next week. I will refill her Zofran. We will provide a prescription for Phenergan that she can use as a secondary option of her nausea continues. Recommended a bland diet. She was given return precautions. Discharge Plan Departure Patient Disposition: Home Clinical Impression: Low back pain, Transaminitis Instructions: Low Back Pain Activity Restrictions/Additional Instructions: Keep your appointment with your primary doctor on Sunday. Recommend a bland diet for the next couple days. Talk with your primary doctor about a referral to see gastroenterology. Return to the emergency department for new symptoms. Prescriptions: New ondansetron 4 mg tablet,disintegrating 4 mg PO Q6H PRN (Reason: nausea and vomiting) Qty: 14 0RF promethazine 25 mg tablet 25 mg PO Q6H PRN (Reason: nausea and vomiting) Qty: 10 0RF No Action ondansetron 4 mg tablet,disintegrating 4 mg PO Q6H PRN (Reason: nausea and vomiting) Qty: 10 0RF Referrals: Shilo Romero MD [Primary Care Provider] - Stand Alone Forms: Patient Portal/API
[2024-01-25 22:19] VITALS: BP 158/94; PULSE 70; O2SAT 98
[2024-01-25] MEDS: ONDANSETRON 4 MG ODT PREPACK 1 BOTTLE MISC (22:19)
[2024-01-27 05:36] LABS: HBsAg Screen Negative (Negative); Hepatitis A Antibody IgM Negative (Negative); Hepatitis B Core Antibody IgM Negative (Negative); Hepatitis C Antibody Non Reactive (Non Reactive)
== END 2024-01-25 22:24 | disposition home or self-care (01) ==
PROVIDERS: Emergency Provider Emergency Medicine; PCP Family Medicine
DX: M54.50 Low back pain, unspecified (principal); R74.01 Elevation of levels of liver transaminase levels; N93.9 Abnormal uterine and vaginal bleeding, unspecified
CPT/HCPCS: 36415; 80053; 80074; 80320; 80329; 81001; 81003; 81025; 83690; 84703; 85025; 87491; 87591; 96374; 99284; G0480; J1885

== ENCOUNTER → 2024-01-29 11:58 | Outpatient (CLI) | payer OTHER, MEDICAID, SELFPAY ==
[2024-01-29 13:41] LABS: HEMOLYSIS < 15 (0-50); Iron 85 ug/dL (37-170)
[2024-01-29 13:43] LABS: Alanine Aminotransferase 439 IU/L (<35); Albumin 4.5 g/dL (3.5-5.0); Albumin Globulin Ratio 1.6 (1.0-2.8); Alkaline Phosphatase 108 U/L (38-126); Aspartate Aminotransferase 67 IU/L (14-36); BUN Creatinine Ratio 23.1 (6-22); Bilirubin Total 0.4 mg/dL (0.2-1.3); Blood Urea Nitrogen 15 mg/dL (7-17); Calcium 9.8 mg/dL (8.4-10.2); Carbon Dioxide 27 mmol/L (22-32); Chloride 102 mmol/L (98-107); Estimated Glomerular Filt Rate > 60 mL/min (>60); Gamma Glutamyl Transpeptidase 330 U/L (12-43); Globulin 2.8 g/dL (1.7-4.1); Glucose 90 mg/dL (70-100); HEMOLYSIS < 15 (0-50); Potassium 4.7 mmol/L (3.4-5.1); Sodium 137 mmol/L (137-145); Total Protein 7.3 g/dL (6.3-8.2)
[2024-01-29 13:53] LABS: Percent Iron Saturation 18 % (15-50); Total Iron Binding Capacity 467 ug/dL (265-497); Transferrin 383 mg/dL (206-381)
[2024-01-29 14:01] LABS: Free T3, Triiodothyronine Free 3.25 pg/mL (2.77-5.27); Free T4, Direct Thyroxine 0.93 ng/dL (0.78-2.19)
[2024-01-29 14:14] LABS: Thyroid Stimulating Hormone 0.755 uIU/mL (0.47-4.68)
[2024-01-29 14:21] LABS: Ferritin 35 ng/mL (6-137)
[2024-01-30 04:09] LABS: Alpha 1 Anti Trypsin 184 mg/dL (100-188); Ceruloplasmin 25.2 mg/dL (19.0-39.0); Immunoglobulin G, Quantitative 850 mg/dL (586-1602)
[2024-01-30 13:12] LABS: Thyroid Peroxidase Antibodies 11 IU/mL (0-34)
== END ==
LOC: LAB 12:02
PROVIDERS: PCP Student in an Organized Health Care Education/Training Program; Referring Provider Student in an Organized Health Care Education/Training Program; Visit Provider Student in an Organized Health Care Education/Training Program
DX: R74.8 Abnormal levels of other serum enzymes (principal)
CPT/HCPCS: 36415; 80053; 82103; 82390; 82728; 82784; 82977; 83516; 83540; 83550; 84439; 84443; 84481; 86015; 86038; 86376

== ENCOUNTER → 2024-02-01 13:20 | Outpatient (CLI) | payer OTHER, MEDICAID, SELFPAY | PROVIDERS: Family Provider Student in an Organized Health Care Education/Training Program; PCP Student in an Organized Health Care Education/Training Program; Visit Provider Student in an Organized Health Care Education/Training Program | DX: R39.89 Other symptoms and signs involving the genitourinary system (principal) | CPT/HCPCS: 87210 ==

== ENCOUNTER → 2024-02-06 09:14 | Outpatient (CLI) | payer OTHER, MEDICAID, SELFPAY ==
--- NOTE | 2024-02-06 09:14 | DI.US.S_ITS ---
PROCEDURE: US ABDOMEN LIMITED INDICATIONS: ELEVATED GGT, AST, AND ALT. RECENT CT AND US WNL. TECHNIQUE: Real-time focused scanning was performed of the abdomen, with image documentation. COMPARISON: [facility], , US ABDOMEN LIMITED, 01/24/2024, 7:43. FINDINGS: The liver is normal in size and demonstrates no suspicious lesions. No findings of gallstones or sludge are seen. The gallbladder wall is not thickened, measuring 3 mm or less. No specific pericholecystic fluid is seen. The sonographic Chan sign is negative. There is no biliary dilatation, the common bile duct measures 3 mm. No significant pancreatic abnormality is seen on these images. IMPRESSION: Normal appearing liver by ultrasound. The gallbladder demonstrates a normal sonographic appearance. No biliary dilatation is seen. Dictated by: Donald Johnson M.D. on 02/06/2024 at 11:04 Approved by: Donald Johnson M.D. on 02/06/2024 at 11:05
== END ==
PROVIDERS: Family Provider Student in an Organized Health Care Education/Training Program; PCP Student in an Organized Health Care Education/Training Program; Referring Provider Student in an Organized Health Care Education/Training Program; Visit Provider Student in an Organized Health Care Education/Training Program
DX: R74.8 Abnormal levels of other serum enzymes (principal); R74.01 Elevation of levels of liver transaminase levels
CPT/HCPCS: 76705

== ENCOUNTER → 2024-03-05 14:28 | Outpatient (CLI) | payer OTHER, MEDICAID, SELFPAY ==
[2024-03-13 00:36] LABS: Chlamydia trachomatis Negative (Negative); Mycoplasma genitalium Negative (Negative); Neisseria gonorrhoeae Negative (Negative)
== END ==
PROVIDERS: Family Provider Student in an Organized Health Care Education/Training Program; PCP Student in an Organized Health Care Education/Training Program; Visit Provider Obstetrics & Gynecology
DX: R10.2 Pelvic and perineal pain (principal)
CPT/HCPCS: 87491; 87563; 87591

== ENCOUNTER 2024-04-25 11:30 | Outpatient (RCR) | payer OTHER, MEDICAID, SELFPAY ==
--- NOTE | 2024-03-06 15:50 | PT.OIE ---
Current Diagnoses Other chronic pain (03/06/24) Pain in right hip (03/06/24) Pain in left hip (03/06/24) Stiffness of right hip, not elsewhere classified (03/06/24) Stiffness of left hip, not elsewhere classified (03/06/24) Low back pain, unspecified (03/06/24) Pain in thoracic spine (03/06/24) Weakness (03/06/24) Past Medical History (Last Updated 03/05/24 @ 16:28 by Radha Agrawal MD) ADHD (~1999) ADHD (attention deficit hyperactivity disorder), combined type Anxiety (~1997) Chronic bilateral low back pain without sciatica Depression (~2001) Frequent UTI (~2010) Herpes (~2009) Hx of ectopic (~2015) Irregular menstrual cycle (~2006) Nicotine dependence with current use Pelvic pain in female PTSD (post-traumatic stress disorder) (~2001) Specific phobia Past Surgical History (Last Updated 03/05/24 @ 16:28 by Radha Agrawal MD) Anesthesia History of nasal septoplasty (08/02/17) Visit Care Team Role Provider Type Darby Thakkar MD Family Provider Physician Primary Care Provider Specialty: Family Practice Obstetrics Address: [address] [place] [address] Email: [email or web address] Shilo Romero MD Attending Provider Physician Referring Provider Specialty: Family Practice Obstetrics Address: [address] [place] [id number] Email: [email or web address] Physical Therapy Initial Evaluation PT-OP-A Visit Information Start: 02/27/24 16:43 Freq: Status: Active Protocol: Document 03/06/24 10:35 NM (Rec: 03/06/24 11:36 NM [id number]) Out-Patient Physical Therapy Visit Information Visit Information Visit Type Initial Evaluation Visit Note 12 visits incl eval Visit Start Time 10:57 Visit Stop Time 11:30 Visit Number 05/11 Evaluation Information Evaluation Date 03/06/24 PT-OP-B Current Condition Start: 02/27/24 16:43 Freq: Status: Active Protocol: Document 03/06/24 10:35 NM (Rec: 03/06/24 11:36 NM [id number]) Current Condition History of Current Condition Onset Date 2020- chronic and ongoing Current Complaints pain, limited mobility, weakness History of Current Condition Pt presents with pain in mid back and low back, and Bhip pain. Pain started in 2020- started in her groin; states that thought from injury with dance; Worse with activity - sharp and suddne, can't replicate, worsening. STarted L, no R side in hip. Has scar tissue and endometriosis; 3x ED for lower back pain in Dec about 3 weeks. Needed support to bend and stand but now has improved. Has been referred to GI for celiac. Reports that when has lower back pain, she has less thoracic pain. Has eliminated gluten and alcohol and energy drinks, which has helped. L hip injured during pole dancing (dropping into splits), repeated impact; reports that when she stretches she feels a pop in the side of her groin; no catching or locking; states only when stretching. Not painful sensation. R side started in 2023. Has debilitating depression, spends a lot of time in bed. Has abdominal pain and low back. Has had for 2 years, worsening tammy in December. Denies BB changes and sensation changes. Midback- tightness R shoulder, not spine pain Prior Treatments and Tests Bilateral hip x ray September 2023- Impression: Unremarkable radiographic examination of bilateral hip Thoracic spine x ray September 2023 - Impression: No acute thoracic spine fracture or dislocation. Mild rightward curvature of thoracic spine centered at T8 level. No significant degenerative disc disease. PT-OP-C Subjective Start: 02/27/24 16:43 Freq: Status: Active Protocol: Document 03/06/24 10:35 NM (Rec: 03/06/24 11:36 NM [id number]) OP-PT Subjective Patient Comments Patient Comments Pt consents to participate in evaluation Patient Questionnaires Lower Extremity Functional Scale LEFS Score 48/80 Neck Disability Index NDI Score 24/100 Oswestry Low Back Index Oswestry Score 38/100 OP-PT Pain Assessment Location hips Pain Location Details groin- ant at joint (L), R slighty lateral but ant Intensity 6 Scale Used Numeric (0 - 10) Description Aching,Dull,Sharp Description- Other pop; sharp 10; dull ache 3-10 w/ nausea Frequency Intermittent Pain Aggravating Factors Activity,Exercise,Standing, Walking Other Pain Aggravating Factors turning/twisting Pain Alleviating Factors Heat,Medication Other Pain Alleviating Factors baths, ibuprofen back Pain Location Details tailbone, lower back; central along spine Intensity 5 Scale Used Numeric (0 - 10) Description Aching,Dull Description- Other 0 at rest Frequency Constant Radiating Location center spine > outward to abdomen Pain Aggravating Factors Activity,Standing,Sitting, Walking,Lifting Other Pain Aggravating Factors leaning back; flexion Pain Alleviating Factors Heat,Medication,Lying Supine, Sitting Other Pain Alleviating Factors baths, ibuprofen; sleeps R side Comments Pain Comments 600 mg up to 3x/day PT-OP-E Functional Tests Start: 02/27/24 16:43 Freq: Status: Active Protocol: Document 03/06/24 10:35 NM (Rec: 03/06/24 11:36 NM [id number]) Functional Tests Other Forward Trunk Flexion Test Name of Test measured finger tips to floor Score 4 PT-OP-F Manual Assessment Start: 02/27/24 16:43 Freq: Status: Active Protocol: Document 03/06/24 10:35 NM (Rec: 03/06/24 11:36 NM [id number]) Manual Assessments Soft Tissue Assessment Soft Tissue Mobility Assessment Increased restrictions of B rhomboids and thoracolumbar paraspinals, tightness of hip flexors Joint Mobility Assessment Joint Mobility Assessment Hypomobility of thoracic spine with AROM and PROM Hypomobility of lumbar spine with AROM L hip hypermobile AROM and PROM but less mobility in prone than supine or sitting PT-OP-G Mobility & Gait Start: 02/27/24 16:43 Freq: Status: Active Protocol: Document 03/06/24 10:35 NM (Rec: 03/06/24 16:28 NM [id number]) OP Gait Assessment Gait Gait Assistance Required: Independent Distance (Feet) 150 Gait Deviations General Gait Pattern Antalgic PT-OP-J Posture/Palpation/Skin Start: 02/27/24 16:43 Freq: Status: Active Protocol: Document 03/06/24 10:35 NM (Rec: 03/06/24 11:36 NM [id number]) Posture Evaluation Position Standing Head/C-Spine Posture Forward Head T-Spine Posture Fixed Scoliosis on (R) L-Spine Posture Increased Lordosis Hip Posture (L) Externally Rotated,(R) Externally Rotated Knee Posture (L) Genu Valgus,(R) Genu Valgus Palpation Assessment Location thoracolumbar spine Palpation Details Mild tenderness with PA springing along midthoracic spinous processes and lower lumbar spine Tendereness over sacrum and B PSIS (L>R) but not at coccyx Increased restrictions of soft tissue mobility along thoracolumbar spine hips Palpation Details No tenderness to palpation at B hips PT-OP-K Range of Motion Start: 02/27/24 16:43 Freq: Status: Active Protocol: Document 03/06/24 10:35 NM (Rec: 03/06/24 11:36 NM [id number]) Lumbar Spine Range of Motion Lumbar Spine Active Percentage Flexion 90 Extension 50 Rotation Left 50 Rotation Right 100 Lateral Flexion Left 100 Lateral Flexion Right 100 Comments pain with: flex, ext TS: 75% R LF, 50% L LF (+), 100% ext, 100% flex (+), B rotation limited but not painful Shoulder Goniometric Range of Motion Shoulder ROM Limitations Comments WFL bilaterally Hip Goniometric Range of Motion Hip Right Internal Rotation 45 External Rotation 28 Left Internal Rotation 45 External Rotation 30 Comments Less mobility in IR in prone PT-OP-L Special Tests Start: 02/27/24 16:43 Freq: Status: Active Protocol: Document 03/06/24 10:35 NM (Rec: 03/06/24 11:36 NM [id number]) Special Tests Lumbar Spine Special Tests Villanueva/Quadrant Test Results - Comments does not reproduce concordant pain Hip Special Tests prone hip IR Test Results + Comments less on L side but only mild increase in pain Anterior Labral Test Test Results + Comments L Scour Test Test Results + Comments L FADIR Test Results - Comments labral PT-OP-M Strength Start: 02/27/24 16:43 Freq: Status: Active Protocol: Document 03/06/24 10:35 NM (Rec: 03/06/24 11:36 NM [id number]) Trunk Strength Trunk Manual Muscle Testing Flexion 4 Good Comments Thoracic spine: 4/5 for all, no pain with resisted tested Shoulder Strength Shoulder Manual Muscle Testing Right Flexion 4 Good Abduction (C5) 4 Good Left Flexion 4 Good Abduction (C5) 4 Good Elbow/Forearm Strength Elbow and Forearm Manual Muscle Testing Right Flexion (C6) 4 Good Extension (C7) 4 Good Left Flexion (C6) 4 Good Extension (C7) 4 Good Hip Strength Hip Manual Muscle Testing Right Flexion (L2) 4- Good- Extension (S1) 4- Good- Abduction 4- Good- External Rotation 4- Good- Internal Rotation 4- Good- Left Flexion (L2) 4- Good- Extension (S1) 4- Good- Abduction 4- Good- External Rotation 4- Good- Internal Rotation 4- Good- Knee Strength Knee Manual Muscle Testing Right Flexion (S2) 4- Good- Extension (L3) 4- Good- Left Flexion (S2) 4- Good- Extension (L3) 4- Good- PT-OP-T Assessment and Plan Start: 02/27/24 16:43 Freq: Status: Active Protocol: Document 03/06/24 10:35 NM (Rec: 03/06/24 11:36 NM [id number]) Physical Therapy Assessment Rehab Potential Rehabilitation Potential Fair Evaluation Complexity Number of Personal Factors/Comorbidities 3 or More Number of Body Systems Impaired 4 or More Clinical Presentation at Evaluation Stable Impairments Impairments Activity Tolerance,Edema, Functional Activities, Functional Mobility,Gait, Integument,Pain,Posture,ROM, Soft Tissue Mobility,Strength, Transfers Other Concerns Age Related Concerns PMH: back pain, depression, headaches, jaw pain, vision problems, surgeries: fallopian tube removal R, septoplasty. Former smoker. Pt is also currently being assessed for possible endometriosis and celiac disease. 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 She reports that she has severe depression which often does not allow her to leave her bed . She also has a limited number of insurance visits and is planning to keep all visits currently scheduled; however, reports that she is not sure how her body will react to PT and is concerned that increase in activity may be too much for pt Goals Three Impairment pain with lifting, sitting, sleeping Short Term Goal (STG) Pt will be educated on body mechanics and ergonomics with lifting, sitting, and sleeping in order to improve symptom management STG Duration 5 weeks Fixed Wing Aircraft Flight Mechanic Goal (LTG) Pt will report that she is able to lift at least a 5-10# object without increase in low back pain for at least 5/10 reps in order to demonstrate improved strength and body mechanics LTG Duration 12 weeks Two Impairment hip and trunk strength limited [employer] Flight Mechanic Goal (LTG) Pt will improve global trunk and B hip strength to at least 4/5 MMT in order to demonstrate increased strength for stability during ADLs and improved symptom management LTG Duration 12 weeks One Impairment not performing HEP Short Term Goal (STG) Pt will be educated on HEP and provided HEP to perform at least 2-3x/wk in order to supplement sessions and maximize progression with PT STG Duration 5 weeks Snf Goal (LTG) Pt will report compliance with HEP at least 3x/wk in order to transition to maintenance program following discharge from PT LTG Duration 12 weeks Assessment Summary Assessment Pt is a 33 y.o. presenting with chronic thoracolumbar pain and B hip pain (L>R) beginning in 2020. Recent imaging reveals no bony abnormalities of her hips but she does have mild R thoracic scoliosis. Pt has mild limitations in B hip strength but not AROM. Her L sided hip symptoms are consistent with a possible labral tear, based on subjective report and reproducible with scour and anterior labral tests. Pt's back pain may also be influenced by referred pain as pt is currently being assessed for celiac and for endometriosis. However, she does have mild thoracic and lumbar spine AROM and strength limitations. Decreased time with evaluation due to pt late arrival to appointment. PT educated pt on exam findings, plan of care, and attendance policy. She has limited number of physical therapy visits due to insurance. Pt would benefit from skilled PT for progressive strengthening, mobility, and body mechanics training in order to improve symptom management and ability to perform ADLs/recreational activities without limit due to back or hip pain. Physical Therapy Plan Frequency and Duration Frequency of Treatment 1-2x/wk Duration of treatment (weeks) 12 Plan of Care Start Date 03/06/24 Plan of Care End Date 05/30/24 Therapeutic Interventions Therapeutic Interventions Balance Training,Gait Training ,Home Exercise Program,Manual Therapy,Neuromuscular Re- education,Orthotic/Prosthetic Management,Patient/Caregiver Education,Self-Care/Home Management,Sensory Integration ,Soft Tissue Mobilization, Taping,Therapeutic Activities, Therapeutic Exercises Modalities Cold Pack/Ice Massage,Electric Stimulation,Hot Packs, Ultrasound Next Visit Focus/Plan Next Note Type Treatment Note Next Visit Plan 12 visits max so update HEP ea sessionss diaphragmatic breathing and pain management strategies initiate supported hip strengthening (trial quad rock backs, jana bridge holds, fire hydrant vs clam, BKFO and flexion biased core in supine /sidelying/sitting) and flexion biased core stabilization (supine > sitting > standing progressions) thoracolumbar mobility: trial cat cow, open book vs thread needle (modified possibly) manual treatment prn to hips and low back
--- NOTE | 2024-03-19 09:46 | PT.OTN ---
Current Diagnoses Other chronic pain (03/19/24) Pain in right hip (03/19/24) Pain in left hip (03/19/24) Stiffness of right hip, not elsewhere classified (03/19/24) Stiffness of left hip, not elsewhere classified (03/19/24) Low back pain, unspecified (03/19/24) Pain in thoracic spine (03/19/24) Weakness (03/19/24) Physical Therapy Treatment Note PT-OP-A Visit Information Start: 02/27/24 16:43 Freq: Status: Active Protocol: Document 03/19/24 09:04 NM (Rec: 03/19/24 09:46 NM [id number]) Out-Patient Physical Therapy Visit Information Visit Information Visit Type Treatment Note Visit Note 12 visits incl eval Visit Start Time 09:05 Visit Stop Time 09:45 Visit Number 06/11 Evaluation Information Evaluation Date 03/06/24 PT-OP-B Current Condition Start: 02/27/24 16:43 Freq: Status: Active Protocol: Document 03/06/24 10:35 NM (Rec: 03/06/24 11:36 NM [id number]) Current Condition History of Current Condition Onset Date 2020- chronic and ongoing Current Complaints pain, limited mobility, weakness History of Current Condition Pt presents with pain in mid back and low back, and Bhip pain. Pain started in 2020- started in her groin; states that thought from injury with dance; Worse with activity - sharp and suddne, can't replicate, worsening. STarted L, no R side in hip. Has scar tissue and endometriosis; 3x ED for lower back pain in Dec about 3 weeks. Needed support to bend and stand but now has improved. Has been referred to GI for celiac. Reports that when has lower back pain, she has less thoracic pain. Has eliminated gluten and alcohol and energy drinks, which has helped. L hip injured during pole dancing (dropping into splits), repeated impact; reports that when she stretches she feels a pop in the side of her groin; no catching or locking; states only when stretching. Not painful sensation. R side started in 2023. Has debilitating depression, spends a lot of time in bed. Has abdominal pain and low back. Has had for 2 years, worsening tammy in December. Denies BB changes and sensation changes. Midback- tightness R shoulder, not spine pain Prior Treatments and Tests Bilateral hip x ray September 2023- Impression: Unremarkable radiographic examination of bilateral hip Thoracic spine x ray September 2023 - Impression: No acute thoracic spine fracture or dislocation. Mild rightward curvature of thoracic spine centered at T8 level. No significant degenerative disc disease. PT-OP-C Subjective Start: 02/27/24 16:43 Freq: Status: Active Protocol: Document 03/19/24 09:04 NM (Rec: 03/19/24 09:46 NM [id number]) OP-PT Subjective Patient Comments Patient Comments Pt reports that her back has been painful over the last week following a lot of cleaning and movement in her house. Pt reports pain with turning 2/10 in midback. States improvement over midback. Has been using massage, CBD. Had pain with sleeping last night. Reports more hip pain than back pain PT-OP-E Functional Tests Start: 02/27/24 16:43 Freq: Status: Active Protocol: Document 03/06/24 10:35 NM (Rec: 03/06/24 11:36 NM [id number]) Functional Tests Other Forward Trunk Flexion Test Name of Test measured finger tips to floor Score 4 PT-OP-F Manual Assessment Start: 02/27/24 16:43 Freq: Status: Active Protocol: Document 03/06/24 10:35 NM (Rec: 03/06/24 11:36 NM [id number]) Manual Assessments Soft Tissue Assessment Soft Tissue Mobility Assessment Increased restrictions of B rhomboids and thoracolumbar paraspinals, tightness of hip flexors Joint Mobility Assessment Joint Mobility Assessment Hypomobility of thoracic spine with AROM and PROM Hypomobility of lumbar spine with AROM L hip hypermobile AROM and PROM but less mobility in prone than supine or sitting PT-OP-G Mobility & Gait Start: 02/27/24 16:43 Freq: Status: Active Protocol: Document 03/06/24 10:35 NM (Rec: 03/06/24 16:28 NM [id number]) OP Gait Assessment Gait Gait Assistance Required: Independent Distance (Feet) 150 Gait Deviations General Gait Pattern Antalgic PT-OP-J Posture/Palpation/Skin Start: 02/27/24 16:43 Freq: Status: Active Protocol: Document 03/06/24 10:35 NM (Rec: 03/06/24 11:36 NM [id number]) Posture Evaluation Position Standing Head/C-Spine Posture Forward Head T-Spine Posture Fixed Scoliosis on (R) L-Spine Posture Increased Lordosis Hip Posture (L) Externally Rotated,(R) Externally Rotated Knee Posture (L) Genu Valgus,(R) Genu Valgus Palpation Assessment Location thoracolumbar spine Palpation Details Mild tenderness with PA springing along midthoracic spinous processes and lower lumbar spine Tendereness over sacrum and B PSIS (L>R) but not at coccyx Increased restrictions of soft tissue mobility along thoracolumbar spine hips Palpation Details No tenderness to palpation at B hips PT-OP-K Range of Motion Start: 02/27/24 16:43 Freq: Status: Active Protocol: Document 03/06/24 10:35 NM (Rec: 03/06/24 11:36 NM [id number]) Lumbar Spine Range of Motion Lumbar Spine Active Percentage Flexion 90 Extension 50 Rotation Left 50 Rotation Right 100 Lateral Flexion Left 100 Lateral Flexion Right 100 Comments pain with: flex, ext TS: 75% R LF, 50% L LF (+), 100% ext, 100% flex (+), B rotation limited but not painful Shoulder Goniometric Range of Motion Shoulder ROM Limitations Comments WFL bilaterally Hip Goniometric Range of Motion Hip Right Internal Rotation 45 External Rotation 28 Left Internal Rotation 45 External Rotation 30 Comments Less mobility in IR in prone PT-OP-L Special Tests Start: 02/27/24 16:43 Freq: Status: Active Protocol: Document 03/06/24 10:35 NM (Rec: 03/06/24 11:36 NM [id number]) Special Tests Lumbar Spine Special Tests Villanueva/Quadrant Test Results - Comments does not reproduce concordant pain Hip Special Tests prone hip IR Test Results + Comments less on L side but only mild increase in pain Anterior Labral Test Test Results + Comments L Scour Test Test Results + Comments L FADIR Test Results - Comments labral PT-OP-M Strength Start: 02/27/24 16:43 Freq: Status: Active Protocol: Document 03/06/24 10:35 NM (Rec: 03/06/24 11:36 NM [id number]) Trunk Strength Trunk Manual Muscle Testing Flexion 4 Good Comments Thoracic spine: 4/5 for all, no pain with resisted tested Shoulder Strength Shoulder Manual Muscle Testing Right Flexion 4 Good Abduction (C5) 4 Good Left Flexion 4 Good Abduction (C5) 4 Good Elbow/Forearm Strength Elbow and Forearm Manual Muscle Testing Right Flexion (C6) 4 Good Extension (C7) 4 Good Left Flexion (C6) 4 Good Extension (C7) 4 Good Hip Strength Hip Manual Muscle Testing Right Flexion (L2) 4- Good- Extension (S1) 4- Good- Abduction 4- Good- External Rotation 4- Good- Internal Rotation 4- Good- Left Flexion (L2) 4- Good- Extension (S1) 4- Good- Abduction 4- Good- External Rotation 4- Good- Internal Rotation 4- Good- Knee Strength Knee Manual Muscle Testing Right Flexion (S2) 4- Good- Extension (L3) 4- Good- Left Flexion (S2) 4- Good- Extension (L3) 4- Good- PT-OP-Q Treatments Start: 02/27/24 16:43 Freq: Status: Active Protocol: Document 03/19/24 09:04 NM (Rec: 03/19/24 09:46 NM [id number]) Therapeutic Exercises Supine Exercises TrA activation Supine Exercise Name 1. breathing, 2. BKFO, 3. heel slides (HEP) Side bilateral Reps/Minutes 1. 1 minute, 2. 10 ea, 3. 8 ea Comments cued bracing and form; chall to coord, improve w/ reps diaphragmatic beathing Supine Exercise Name modified hooklying (HEP) Side bilateral Equipment Used self tactile cues with hands on chest/belly Reps/Minutes 2 minutes Comments educated on rationale Sidelying Exercises open book Sidelying Exercise Name HEP Side bilateral Reps/Minutes 10 ea Comments no pain but reports neck tension on L side Other Exercises self soft tissue mobilization Other Exercise Name 1. L cervical paraspinals, 2. MWM using contract-relax w/ UT Equipment Used theracane Reps/Minutes 2 min Comments HEP (no HO) quadruped Other Exercise Name 1. cat camel, 2. hip abd (HEP) , 3. hip ext (HEP) Side bilateral Resistance level 2 band Reps/Minutes 1. 8, 2. 10 ea, 3. 10 ea Comments no increase in hip or back pain PT-OP-T Assessment and Plan Start: 02/27/24 16:43 Freq: Status: Active Protocol: Document 03/19/24 09:04 NM (Rec: 03/19/24 09:46 NM [id number]) Physical Therapy Assessment Goals Three Impairment pain with lifting, sitting, sleeping Short Term Goal (STG) Pt will be educated on body mechanics and ergonomics with lifting, sitting, and sleeping in order to improve symptom management STG Duration 5 weeks Desktop Analyst Goal (LTG) Pt will report that she is able to lift at least a 5-10# object without increase in low back pain for at least 5/10 reps in order to demonstrate improved strength and body mechanics LTG Duration 12 weeks Two Impairment hip and trunk strength limited Desktop Analyst Goal (LTG) Pt will improve global trunk and B hip strength to at least 4/5 MMT in order to demonstrate increased strength for stability during ADLs and improved symptom management LTG Duration 12 weeks One Impairment not performing HEP Short Term Goal (STG) Pt will be educated on HEP and provided HEP to perform at least 2-3x/wk in order to supplement sessions and maximize progression with PT STG Duration 5 weeks Desktop Analyst Goal (LTG) Pt will report compliance with HEP at least 3x/wk in order to transition to maintenance program following discharge from PT LTG Duration 12 weeks Assessment Summary Assessment Pt tolerated session well. Initiate core bracing and mobility work to address deficits. No increase in pain with mobility exercises or strengthening. Demos improved core contraction with reps but still needs moderate cueing for form. Good feedback for added resistance during quadruped hip strengthening. Cued for core bracing during quadruped. PT educated pt that she will be discharged from PT if no-shows or cancels w/i 24 hrs any future appt; pt verbalizes understanding. Pt would continue to benefit from skilled PT for hip and trunk strengthening in order to improve activity tolerance and symptom management. Physical Therapy Plan Frequency and Duration Frequency of Treatment 1-2x/wk Duration of treatment (weeks) 12 Plan of Care Start Date 03/06/24 Plan of Care End Date 05/30/24 Therapeutic Interventions Therapeutic Interventions Balance Training,Gait Training ,Home Exercise Program,Manual Therapy,Neuromuscular Re- education,Orthotic/Prosthetic Management,Patient/Caregiver Education,Self-Care/Home Management,Sensory Integration ,Soft Tissue Mobilization, Taping,Therapeutic Activities, Therapeutic Exercises Modalities Cold Pack/Ice Massage,Electric Stimulation,Hot Packs, Ultrasound Next Visit Focus/Plan Next Note Type Treatment Note Next Visit Plan 12 visits max so update HEP ea sessionss trial sb core and hip strengthening. STM to back initiate supported hip strengthening > standing hip exercises ( quad rock backs, jana bridge holds, fire hydrant vs clam, BKFO and flexion biased core in supine/ sidelying/sitting) and flexion biased core stabilization ( supine > sitting > standing progressions) thoracolumbar mobility: trial cat cow, open book vs thread needle (modified possibly) manual treatment prn to hips and low back
--- NOTE | 2024-03-21 12:14 | PT.OTN ---
Current Diagnoses Other chronic pain (03/21/24) Pain in right hip (03/21/24) Pain in left hip (03/21/24) Stiffness of right hip, not elsewhere classified (03/21/24) Stiffness of left hip, not elsewhere classified (03/21/24) Low back pain, unspecified (03/21/24) Pain in thoracic spine (03/21/24) Weakness (03/21/24) Physical Therapy Treatment Note PT-OP-A Visit Information Start: 02/27/24 16:43 Freq: Status: Active Protocol: Document 03/21/24 11:34 SP (Rec: 03/21/24 12:27 SP [id number]) Out-Patient Physical Therapy Visit Information Visit Information Visit Type Treatment Note Visit Note 12 visits incl eval Visit Start Time 11:34 Visit Stop Time 12:14 Visit Number 07/09 Evaluation Information Evaluation Date 03/06/24 PT-OP-B Current Condition Start: 02/27/24 16:43 Freq: Status: Active Protocol: Document 03/06/24 10:35 NM (Rec: 03/06/24 11:36 NM [id number]) Current Condition History of Current Condition Onset Date 2020- chronic and ongoing Current Complaints pain, limited mobility, weakness History of Current Condition Pt presents with pain in mid back and low back, and Bhip pain. Pain started in 2020- started in her groin; states that thought from injury with dance; Worse with activity - sharp and suddne, can't replicate, worsening. STarted L, no R side in hip. Has scar tissue and endometriosis; 3x ED for lower back pain in Dec about 3 weeks. Needed support to bend and stand but now has improved. Has been referred to GI for celiac. Reports that when has lower back pain, she has less thoracic pain. Has eliminated gluten and alcohol and energy drinks, which has helped. L hip injured during pole dancing (dropping into splits), repeated impact; reports that when she stretches she feels a pop in the side of her groin; no catching or locking; states only when stretching. Not painful sensation. R side started in 2023. Has debilitating depression, spends a lot of time in bed. Has abdominal pain and low back. Has had for 2 years, worsening tammy in December. Denies BB changes and sensation changes. Midback- tightness R shoulder, not spine pain Prior Treatments and Tests Bilateral hip x ray September 2023- Impression: Unremarkable radiographic examination of bilateral hip Thoracic spine x ray September 2023 - Impression: No acute thoracic spine fracture or dislocation. Mild rightward curvature of thoracic spine centered at T8 level. No significant degenerative disc disease. PT-OP-C Subjective Start: 02/27/24 16:43 Freq: Status: Active Protocol: Document 03/21/24 11:34 SP (Rec: 03/21/24 12:27 SP [id number]) OP-PT Subjective Patient Comments Patient Comments Pt reports little tired after last tx but not pain. She has been busy and hasn't performed HEP since last tx. Wants to review be sure TA so know doing correctly after cues last tx. PT-OP-E Functional Tests Start: 02/27/24 16:43 Freq: Status: Active Protocol: Document 03/06/24 10:35 NM (Rec: 03/06/24 11:36 NM [id number]) Functional Tests Other Forward Trunk Flexion Test Name of Test measured finger tips to floor Score 4 PT-OP-F Manual Assessment Start: 02/27/24 16:43 Freq: Status: Active Protocol: Document 03/06/24 10:35 NM (Rec: 03/06/24 11:36 NM [id number]) Manual Assessments Soft Tissue Assessment Soft Tissue Mobility Assessment Increased restrictions of B rhomboids and thoracolumbar paraspinals, tightness of hip flexors Joint Mobility Assessment Joint Mobility Assessment Hypomobility of thoracic spine with AROM and PROM Hypomobility of lumbar spine with AROM L hip hypermobile AROM and PROM but less mobility in prone than supine or sitting PT-OP-G Mobility & Gait Start: 02/27/24 16:43 Freq: Status: Active Protocol: Document 03/06/24 10:35 NM (Rec: 03/06/24 16:28 NM [id number]) OP Gait Assessment Gait Gait Assistance Required: Independent Distance (Feet) 150 Gait Deviations General Gait Pattern Antalgic PT-OP-J Posture/Palpation/Skin Start: 02/27/24 16:43 Freq: Status: Active Protocol: Document 03/06/24 10:35 NM (Rec: 03/06/24 11:36 NM [id number]) Posture Evaluation Position Standing Head/C-Spine Posture Forward Head T-Spine Posture Fixed Scoliosis on (R) L-Spine Posture Increased Lordosis Hip Posture (L) Externally Rotated,(R) Externally Rotated Knee Posture (L) Genu Valgus,(R) Genu Valgus Palpation Assessment Location thoracolumbar spine Palpation Details Mild tenderness with PA springing along midthoracic spinous processes and lower lumbar spine Tendereness over sacrum and B PSIS (L>R) but not at coccyx Increased restrictions of soft tissue mobility along thoracolumbar spine hips Palpation Details No tenderness to palpation at B hips PT-OP-K Range of Motion Start: 02/27/24 16:43 Freq: Status: Active Protocol: Document 03/06/24 10:35 NM (Rec: 03/06/24 11:36 NM [id number]) Lumbar Spine Range of Motion Lumbar Spine Active Percentage Flexion 90 Extension 50 Rotation Left 50 Rotation Right 100 Lateral Flexion Left 100 Lateral Flexion Right 100 Comments pain with: flex, ext TS: 75% R LF, 50% L LF (+), 100% ext, 100% flex (+), B rotation limited but not painful Shoulder Goniometric Range of Motion Shoulder ROM Limitations Comments WFL bilaterally Hip Goniometric Range of Motion Hip Right Internal Rotation 45 External Rotation 28 Left Internal Rotation 45 External Rotation 30 Comments Less mobility in IR in prone PT-OP-L Special Tests Start: 02/27/24 16:43 Freq: Status: Active Protocol: Document 03/06/24 10:35 NM (Rec: 03/06/24 11:36 NM [id number]) Special Tests Lumbar Spine Special Tests Villanueva/Quadrant Test Results - Comments does not reproduce concordant pain Hip Special Tests prone hip IR Test Results + Comments less on L side but only mild increase in pain Anterior Labral Test Test Results + Comments L Scour Test Test Results + Comments L FADIR Test Results - Comments labral PT-OP-M Strength Start: 02/27/24 16:43 Freq: Status: Active Protocol: Document 03/06/24 10:35 NM (Rec: 03/06/24 11:36 NM [id number]) Trunk Strength Trunk Manual Muscle Testing Flexion 4 Good Comments Thoracic spine: 4/5 for all, no pain with resisted tested Shoulder Strength Shoulder Manual Muscle Testing Right Flexion 4 Good Abduction (C5) 4 Good Left Flexion 4 Good Abduction (C5) 4 Good Elbow/Forearm Strength Elbow and Forearm Manual Muscle Testing Right Flexion (C6) 4 Good Extension (C7) 4 Good Left Flexion (C6) 4 Good Extension (C7) 4 Good Hip Strength Hip Manual Muscle Testing Right Flexion (L2) 4- Good- Extension (S1) 4- Good- Abduction 4- Good- External Rotation 4- Good- Internal Rotation 4- Good- Left Flexion (L2) 4- Good- Extension (S1) 4- Good- Abduction 4- Good- External Rotation 4- Good- Internal Rotation 4- Good- Knee Strength Knee Manual Muscle Testing Right Flexion (S2) 4- Good- Extension (L3) 4- Good- Left Flexion (S2) 4- Good- Extension (L3) 4- Good- PT-OP-Q Treatments Start: 02/27/24 16:43 Freq: Status: Active Protocol: Document 03/21/24 11:34 SP (Rec: 03/21/24 12:27 SP [id number]) Therapeutic Exercises Supine Exercises TrA activation Supine Exercise Name 1. breathing, 2. BKFO, 3. heel slides arms side slight scap fac Side bilateral Resistance (HEP) Reps/Minutes 1. 1 minute, 2. 10 ea, 3. 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 L cervical paraspinals, 2. MWM using contract-relax w/ distal UT & LS Equipment Used theracane Reps/Minutes 2 min Comments MWM head nods/ turns/SB quadruped Other Exercise Name 1. cat camel & tail wag 2. hip abd (HEP), 3. hip ext (HEP) Side bilateral Resistance level 2 band Reps/Minutes 1. 10, 2. 10 ea, 3. 10 ea Comments cued TA draw in for support Self-Care/Home Management Treatment Education Patient Education Body Mechanics,Joint Protection,Posture Other Education Education spinal and pelvis alignment: sleeping on side /c pillows between knees seated elevated neutral spine PT-OP-T Assessment and Plan Start: 10/30/24 16:43 Freq: Status: Active Protocol: Document 03/21/24 11:34 SP (Rec: 03/21/24 12:27 SP [id number]) Physical Therapy Assessment Goals Three Impairment pain with lifting, sitting, sleeping Short Term Goal (STG) Pt will be educated on body mechanics and ergonomics with lifting, sitting, and sleeping in order to improve symptom management STG Duration 5 weeks Ditch Repairer Goal (LTG) Pt will report that she is able to lift at least a 5-10# object without increase in low back pain for at least 5/10 reps in order to demonstrate improved strength and body mechanics LTG Duration 12 weeks Two Impairment hip and trunk strength limited Senior Living Goal (LTG) Pt will improve global trunk and B hip strength to at least 4/5 MMT in order to demonstrate increased strength for stability during ADLs and improved symptom management LTG Duration 12 weeks One Impairment not performing HEP Short Term Goal (STG) Pt will be educated on HEP and provided HEP to perform at least 2-3x/wk in order to supplement sessions and maximize progression with PT STG Duration 5 weeks Ditch Repairer Goal (LTG) Pt will report compliance with HEP at least 3x/wk in order to transition to maintenance program following discharge from PT LTG Duration 12 weeks Assessment Summary Assessment Pt tolerated session well, improved diminishing LB tension recruitment with cuing PPT neutral, TA draw in and arms at side rhomboid facilitation during heel slides, KFO, quadruped cat and camel and LE extension. Noted improved TA engagement and understanding with performed self corrections with reps and spinal alignment. Slight adductor quivering during some exercises, post cues for slower pacing provided allowance for core engagement support. Physical Therapy Plan Frequency and Duration Frequency of Treatment 1-2x/wk Duration of treatment (weeks) 12 Plan of Care Start Date 03/06/24 Plan of Care End Date 05/30/24 Therapeutic Interventions Therapeutic Interventions Balance Training,Gait Training ,Home Exercise Program,Manual Therapy,Neuromuscular Re- education,Orthotic/Prosthetic Management,Patient/Caregiver Education,Self-Care/Home Management,Sensory Integration ,Soft Tissue Mobilization, Taping,Therapeutic Activities, Therapeutic Exercises Modalities Cold Pack/Ice Massage,Electric Stimulation,Hot Packs, Ultrasound Next Visit Focus/Plan Next Note Type Treatment Note Next Visit Plan 12 visits max so update HEP ea sessionss trial sb core and hip strengthening. STM to back initiate supported hip strengthening > standing hip exercises ( quad rock backs, jana bridge holds, fire hydrant vs clam, BKFO and flexion biased core in supine/ sidelying/sitting) and flexion biased core stabilization ( supine > sitting > standing progressions) thoracolumbar mobility: trial cat cow, open book vs thread needle (modified possibly) manual treatment prn to hips and low back
--- NOTE | 2024-04-04 09:00 | PT.OTN ---
Current Diagnoses Other chronic pain (04/04/24) Pain in right hip (04/04/24) Pain in left hip (04/04/24) Stiffness of right hip, not elsewhere classified (04/04/24) Stiffness of left hip, not elsewhere classified (04/04/24) Low back pain, unspecified (04/04/24) Pain in thoracic spine (04/04/24) Weakness (04/04/24) Physical Therapy Treatment Note PT-OP-A Visit Information Start: 02/27/24 16:43 Freq: Status: Active Protocol: Document 04/04/24 07:31 NM (Rec: 04/04/24 08:18 NM [id number]) Out-Patient Physical Therapy Visit Information Visit Information Visit Type Treatment Note Visit Note 12 visits incl eval Visit Start Time 07:38 Visit Stop Time 08:16 Visit Number 08/09 Evaluation Information Evaluation Date 03/06/24 PT-OP-B Current Condition Start: 02/27/24 16:43 Freq: Status: Active Protocol: Document 03/06/24 10:35 NM (Rec: 03/06/24 11:36 NM [id number]) Current Condition History of Current Condition Onset Date 2020- chronic and ongoing Current Complaints pain, limited mobility, weakness History of Current Condition Pt presents with pain in mid back and low back, and Bhip pain. Pain started in 2020- started in her groin; states that thought from injury with dance; Worse with activity - sharp and suddne, can't replicate, worsening. STarted L, no R side in hip. Has scar tissue and endometriosis; 3x ED for lower back pain in Dec about 3 weeks. Needed support to bend and stand but now has improved. Has been referred to GI for celiac. Reports that when has lower back pain, she has less thoracic pain. Has eliminated gluten and alcohol and energy drinks, which has helped. L hip injured during pole dancing (dropping into splits), repeated impact; reports that when she stretches she feels a pop in the side of her groin; no catching or locking; states only when stretching. Not painful sensation. R side started in 2023. Has debilitating depression, spends a lot of time in bed. Has abdominal pain and low back. Has had for 2 years, worsening tammy in December. Denies BB changes and sensation changes. Midback- tightness R shoulder, not spine pain Prior Treatments and Tests Bilateral hip x ray September 2023- Impression: Unremarkable radiographic examination of bilateral hip Thoracic spine x ray September 2023 - Impression: No acute thoracic spine fracture or dislocation. Mild rightward curvature of thoracic spine centered at T8 level. No significant degenerative disc disease. PT-OP-C Subjective Start: 02/27/24 16:43 Freq: Status: Active Protocol: Document 04/04/24 07:31 NM (Rec: 04/04/24 08:18 NM [id number]) OP-PT Subjective Patient Comments Patient Comments Pt reports exercises helping. States pain is better overall, upper back bothers her occasionally. Is engaging core and doing better posture. Hips still feel the same, is avoiding stretching too much or being in positions that strain her too much (sitting in car, sitting to long). Has not had the suprise pain in her hip, which is an improvement. Has been taking it easier with walking and running, has not run in 3 years, wants to return on running. Has been using an elliptical. Is on an anti- inflammatory diet, which is helping her pain as well. 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 Pt having surgery on 05/12 for possible hysterectomy. PT-OP-E Functional Tests Start: 02/27/24 16:43 Freq: Status: Active Protocol: Document 03/06/24 10:35 NM (Rec: 03/06/24 11:36 NM [id number]) Functional Tests Other Forward Trunk Flexion Test Name of Test measured finger tips to floor Score 4 PT-OP-F Manual Assessment Start: 02/27/24 16:43 Freq: Status: Active Protocol: Document 03/06/24 10:35 NM (Rec: 03/06/24 11:36 NM [id number]) Manual Assessments Soft Tissue Assessment Soft Tissue Mobility Assessment Increased restrictions of B rhomboids and thoracolumbar paraspinals, tightness of hip flexors Joint Mobility Assessment Joint Mobility Assessment Hypomobility of thoracic spine with AROM and PROM Hypomobility of lumbar spine with AROM L hip hypermobile AROM and PROM but less mobility in prone than supine or sitting PT-OP-G Mobility & Gait Start: 02/27/24 16:43 Freq: Status: Active Protocol: Document 03/06/24 10:35 NM (Rec: 03/06/24 16:28 NM [id number]) OP Gait Assessment Gait Gait Assistance Required: Independent Distance (Feet) 150 Gait Deviations General Gait Pattern Antalgic PT-OP-J Posture/Palpation/Skin Start: 02/27/24 16:43 Freq: Status: Active Protocol: Document 03/06/24 10:35 NM (Rec: 03/06/24 11:36 NM [id number]) Posture Evaluation Position Standing Head/C-Spine Posture Forward Head T-Spine Posture Fixed Scoliosis on (R) L-Spine Posture Increased Lordosis Hip Posture (L) Externally Rotated,(R) Externally Rotated Knee Posture (L) Genu Valgus,(R) Genu Valgus Palpation Assessment Location thoracolumbar spine Palpation Details Mild tenderness with PA springing along midthoracic spinous processes and lower lumbar spine Tendereness over sacrum and B PSIS (L>R) but not at coccyx Increased restrictions of soft tissue mobility along thoracolumbar spine hips Palpation Details No tenderness to palpation at B hips PT-OP-K Range of Motion Start: 02/27/24 16:43 Freq: Status: Active Protocol: Document 03/06/24 10:35 NM (Rec: 03/06/24 11:36 NM [id number]) Lumbar Spine Range of Motion Lumbar Spine Active Percentage Flexion 90 Extension 50 Rotation Left 50 Rotation Right 100 Lateral Flexion Left 100 Lateral Flexion Right 100 Comments pain with: flex, ext TS: 75% R LF, 50% L LF (+), 100% ext, 100% flex (+), B rotation limited but not painful Shoulder Goniometric Range of Motion Shoulder ROM Limitations Comments WFL bilaterally Hip Goniometric Range of Motion Hip Right Internal Rotation 45 External Rotation 28 Left Internal Rotation 45 External Rotation 30 Comments Less mobility in IR in prone PT-OP-L Special Tests Start: 02/27/24 16:43 Freq: Status: Active Protocol: Document 03/06/24 10:35 NM (Rec: 03/06/24 11:36 NM [id number]) Special Tests Lumbar Spine Special Tests Villanueva/Quadrant Test Results - Comments does not reproduce concordant pain Hip Special Tests prone hip IR Test Results + Comments less on L side but only mild increase in pain Anterior Labral Test Test Results + Comments L Scour Test Test Results + Comments L FADIR Test Results - Comments labral PT-OP-M Strength Start: 02/27/24 16:43 Freq: Status: Active Protocol: Document 03/06/24 10:35 NM (Rec: 03/06/24 11:36 NM [id number]) Trunk Strength Trunk Manual Muscle Testing Flexion 4 Good Comments Thoracic spine: 4/5 for all, no pain with resisted tested Shoulder Strength Shoulder Manual Muscle Testing Right Flexion 4 Good Abduction (C5) 4 Good Left Flexion 4 Good Abduction (C5) 4 Good Elbow/Forearm Strength Elbow and Forearm Manual Muscle Testing Right Flexion (C6) 4 Good Extension (C7) 4 Good Left Flexion (C6) 4 Good Extension (C7) 4 Good Hip Strength Hip Manual Muscle Testing Right Flexion (L2) 4- Good- Extension (S1) 4- Good- Abduction 4- Good- External Rotation 4- Good- Internal Rotation 4- Good- Left Flexion (L2) 4- Good- Extension (S1) 4- Good- Abduction 4- Good- External Rotation 4- Good- Internal Rotation 4- Good- Knee Strength Knee Manual Muscle Testing Right Flexion (S2) 4- Good- Extension (L3) 4- Good- Left Flexion (S2) 4- Good- Extension (L3) 4- Good- PT-OP-Q Treatments Start: 02/27/24 16:43 Freq: Status: Active Protocol: Document 04/04/24 07:31 NM (Rec: 04/04/24 08:18 NM [id number]) Therapeutic Exercises Sitting Exercises macanese ball Sitting Exercise Name 1. cat camel, 2. lateral tilts , 3. hip circles, 4. lat pull down, 5. march Side bilateral Resistance level 3 band viejas Equipment Used 65 cm macanese ball Reps/Minutes 1. 10 ea, 2. 10 ea, 3. 10 ea HEP, 4. 2x10, 5. 20 w/ lvl 3 band non alt Comments has L sided tightness on low back/glute; pain free; challenging Standing Exercises hip hike Side bilateral Equipment Used 6 step w/ Reps/Minutes 10 Comments initially pinch > stopped w/ reps pallof Standing Exercise Name HEP Side bilateral Resistance level 2 band Equipment Used with squat hold Reps/Minutes 10 ea Comments pain free; Self-Care/Home Management Treatment Education Patient Education Home Exercise Program,Pain Management,Posture Other Education Education handouts provided for sitting, sleeping posture, and desk stretches PT-OP-T Assessment and Plan Start: 02/27/24 16:43 Freq: Status: Active Protocol: Document 04/04/24 07:31 NM (Rec: 04/04/24 08:18 NM [id number]) Physical Therapy Assessment Goals Three Impairment pain with lifting, sitting, sleeping Short Term Goal (STG) Pt will be educated on body mechanics and ergonomics with lifting, sitting, and sleeping in order to improve symptom management 04/04/24: hand out issued with sleeping, sitting and desk stretches for work STG Duration 5 weeks Halfway Goal (LTG) Pt will report that she is able to lift at least a 5-10# object without increase in low back pain for at least 5/10 reps in order to demonstrate improved strength and body mechanics LTG Duration 12 weeks Two Impairment hip and trunk strength limited Forest Ranger Goal (LTG) Pt will improve global trunk and B hip strength to at least 4/5 MMT in order to demonstrate increased strength for stability during ADLs and improved symptom management LTG Duration 12 weeks One Impairment not performing HEP Short Term Goal (STG) Pt will be educated on HEP and provided HEP to perform at least 2-3x/wk in order to supplement sessions and maximize progression with PT 04/04/24: pt compliant with HEP several days/wk STG Duration 5 weeks MET Forest Ranger Goal (LTG) Pt will report compliance with HEP at least 3x/wk in order to transition to maintenance program following discharge from PT LTG Duration 12 weeks Assessment Summary Assessment Pt continues to respond well to therapeutic strengthening of core/back and hips. Emphasis on core/trunk engagement on macanese ball, maintaining stable base to prevent compensations from hip . Demos improvement in abdominal bracing with more dynamic and unstable surfaces. Good response to hip hike for pain management, L side more restricted at SIJ/lumbopelvis than R. Educated on sleeping, sitting ergonomics and desk stretches for postural re- education. Pt would continue to benefit from skilled PT for flexibility and strengthening to improve symptom management and activity tolerance. Physical Therapy Plan Frequency and Duration Frequency of Treatment 1-2x/wk Duration of treatment (weeks) 12 Plan of Care Start Date 03/06/24 Plan of Care End Date 05/30/24 Therapeutic Interventions Therapeutic Interventions Balance Training,Gait Training ,Home Exercise Program,Manual Therapy,Neuromuscular Re- education,Orthotic/Prosthetic Management,Patient/Caregiver Education,Self-Care/Home Management,Sensory Integration ,Soft Tissue Mobilization, Taping,Therapeutic Activities, Therapeutic Exercises Modalities Cold Pack/Ice Massage,Electric Stimulation,Hot Packs, Ultrasound Next Visit Focus/Plan Next Note Type Progress Note Next Visit Plan 12 visits max so update HEP ea sessionss trial hip strengthening in standing. planking. STM to back initiate supported hip strengthening > standing hip exercises ( quad rock backs, jana bridge holds, fire hydrant vs clam, BKFO and flexion biased core in supine/ sidelying/sitting) and flexion biased core stabilization ( supine > sitting > standing progressions) thoracolumbar mobility: trial cat cow, open book vs thread needle (modified possibly) manual treatment prn to hips and low back
--- NOTE | 2024-04-07 15:40 | PT.OTN ---
Current Diagnoses Other chronic pain (04/07/24) Pain in right hip (04/07/24) Pain in left hip (04/07/24) Stiffness of right hip, not elsewhere classified (04/07/24) Stiffness of left hip, not elsewhere classified (04/07/24) Low back pain, unspecified (04/07/24) Pain in thoracic spine (04/07/24) Weakness (04/07/24) Physical Therapy Treatment Note PT-OP-A Visit Information Start: 02/27/24 16:43 Freq: Status: Active Protocol: Document 04/07/24 09:49 NM (Rec: 04/07/24 10:37 NM [id number]) Out-Patient Physical Therapy Visit Information Visit Information Visit Type Progress Note Visit Note 12 visits incl eval Visit Start Time 09:51 Visit Stop Time 10:30 Visit Number 09/08 Evaluation Information Evaluation Date 03/06/24 PT-OP-B Current Condition Start: 02/27/24 16:43 Freq: Status: Active Protocol: Document 03/06/24 10:35 NM (Rec: 03/06/24 11:36 NM [id number]) Current Condition History of Current Condition Onset Date 2020- chronic and ongoing Current Complaints pain, limited mobility, weakness History of Current Condition Pt presents with pain in mid back and low back, and Bhip pain. Pain started in 2020- started in her groin; states that thought from injury with dance; Worse with activity - sharp and suddne, can't replicate, worsening. STarted L, no R side in hip. Has scar tissue and endometriosis; 3x ED for lower back pain in Dec about 3 weeks. Needed support to bend and stand but now has improved. Has been referred to GI for celiac. Reports that when has lower back pain, she has less thoracic pain. Has eliminated gluten and alcohol and energy drinks, which has helped. L hip injured during pole dancing (dropping into splits), repeated impact; reports that when she stretches she feels a pop in the side of her groin; no catching or locking; states only when stretching. Not painful sensation. R side started in 2023. Has debilitating depression, spends a lot of time in bed. Has abdominal pain and low back. Has had for 2 years, worsening tammy in December. Denies BB changes and sensation changes. Midback- tightness R shoulder, not spine pain Prior Treatments and Tests Bilateral hip x ray September 2023- Impression: Unremarkable radiographic examination of bilateral hip Thoracic spine x ray September 2023 - Impression: No acute thoracic spine fracture or dislocation. Mild rightward curvature of thoracic spine centered at T8 level. No significant degenerative disc disease. PT-OP-C Subjective Start: 02/27/24 16:43 Freq: Status: Active Protocol: Document 04/07/24 09:49 NM (Rec: 04/07/24 10:37 NM [id number]) OP-PT Subjective Patient Comments Patient Comments Pt reports growing pains/ achiness after working several shifts. 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 She reports that she got the sharp pain this past weekend in her hip when standing up from a low surface (e.g. toilet). Did not try HEP due to tiredness. Has GI appt on Sunday PT-OP-E Functional Tests Start: 02/27/24 16:43 Freq: Status: Active Protocol: Document 03/06/24 10:35 NM (Rec: 03/06/24 11:36 NM [id number]) Functional Tests Other Forward Trunk Flexion Test Name of Test measured finger tips to floor Score 4 PT-OP-F Manual Assessment Start: 02/27/24 16:43 Freq: Status: Active Protocol: Document 03/06/24 10:35 NM (Rec: 03/06/24 11:36 NM [id number]) Manual Assessments Soft Tissue Assessment Soft Tissue Mobility Assessment Increased restrictions of B rhomboids and thoracolumbar paraspinals, tightness of hip flexors Joint Mobility Assessment Joint Mobility Assessment Hypomobility of thoracic spine with AROM and PROM Hypomobility of lumbar spine with AROM L hip hypermobile AROM and PROM but less mobility in prone than supine or sitting PT-OP-G Mobility & Gait Start: 02/27/24 16:43 Freq: Status: Active Protocol: Document 03/06/24 10:35 NM (Rec: 03/06/24 16:28 NM [id number]) OP Gait Assessment Gait Gait Assistance Required: Independent Distance (Feet) 150 Gait Deviations General Gait Pattern Antalgic PT-OP-J Posture/Palpation/Skin Start: 02/27/24 16:43 Freq: Status: Active Protocol: Document 03/06/24 10:35 NM (Rec: 03/06/24 11:36 NM [id number]) Posture Evaluation Position Standing Head/C-Spine Posture Forward Head T-Spine Posture Fixed Scoliosis on (R) L-Spine Posture Increased Lordosis Hip Posture (L) Externally Rotated,(R) Externally Rotated Knee Posture (L) Genu Valgus,(R) Genu Valgus Palpation Assessment Location thoracolumbar spine Palpation Details Mild tenderness with PA springing along midthoracic spinous processes and lower lumbar spine Tendereness over sacrum and B PSIS (L>R) but not at coccyx Increased restrictions of soft tissue mobility along thoracolumbar spine hips Palpation Details No tenderness to palpation at B hips PT-OP-K Range of Motion Start: 02/27/24 16:43 Freq: Status: Active Protocol: Document 04/07/24 09:49 NM (Rec: 04/07/24 10:37 NM [id number]) Lumbar Spine Range of Motion Lumbar Spine Active Percentage Flexion 95 Extension 50 Rotation Left 50 Rotation Right 100 Lateral Flexion Left 100 Lateral Flexion Right 100 Comments pain with: flex, ext TS: 75% R LF, 50% L LF (+), 100% ext, 100% flex (+), B rotation limited but not painful Hip Goniometric Range of Motion Hip Right Internal Rotation 45 External Rotation 28 Left Internal Rotation 45 External Rotation 30 Comments Less mobility in IR in prone PT-OP-L Special Tests Start: 02/27/24 16:43 Freq: Status: Active Protocol: Document 03/06/24 10:35 NM (Rec: 03/06/24 11:36 NM [id number]) Special Tests Lumbar Spine Special Tests Villanueva/Quadrant Test Results - Comments does not reproduce concordant pain Hip Special Tests prone hip IR Test Results + Comments less on L side but only mild increase in pain Anterior Labral Test Test Results + Comments L Scour Test Test Results + Comments L FADIR Test Results - Comments labral PT-OP-M Strength Start: 02/27/24 16:43 Freq: Status: Active Protocol: Document 04/07/24 09:49 NM (Rec: 04/07/24 10:37 NM [id number]) Trunk Strength Trunk Manual Muscle Testing Flexion 4 Good Extension 4 Good Rotation Left 4 Good Rotation Right 4 Good Lateral Flexion Left 4 Good Lateral Flexion Right 4 Good Comments Thoracic spine: 4/5 for all, no pain with resisted tested 04/07/24: 4/5 for all Hip Strength Hip Manual Muscle Testing Right Flexion (L2) 4- Good- Extension (S1) 4- Good- Abduction 4- Good- External Rotation 4 Good Internal Rotation 4 Good Comments 04/07/24: 4-/5 for flex, ext, abd Left Flexion (L2) 4- Good- Extension (S1) 4- Good- Abduction 4- Good- External Rotation 4 Good Internal Rotation 4 Good Comments 04/07/24: 4-/5 for flex,ext, abd PT-OP-Q Treatments Start: 02/27/24 16:43 Freq: Status: Active Protocol: Document 04/07/24 09:49 NM (Rec: 04/07/24 10:37 NM [id number]) Therapeutic Exercises Supine Exercises bridge Side bilateral Reps/Minutes 10 throughout session to monitor symptoms Comments with ppt, pain with return to flex from end ROM Standing Exercises lateral touch down Side bilateral Equipment Used 4 step, rail for support Reps/Minutes 10 ea resisted stepping Standing Exercise Name 1. lateral, 2. fwd/retro Side bilateral Resistance level 3 band just below knees Equipment Used squat form Reps/Minutes 2x10 ft ea Comments pain free hip hike Side bilateral Equipment Used 4 step w/ rail Reps/Minutes 10 Comments good QL stretch, L more limited than R Manual Therapy Treatment Consent Patient gave verbal consent for manual Yes treatment Soft Tissue Mobilization lumbar spine Body Location QL, lumbar paraspinals Mobilization Type Rolling,Sustained Pressure Intensity/Depth Moderate Body Position Prone Comments with iliac depression and QL sidelying flexion L hip Body Location glutes, distal HS Mobilization Type Rolling,Strumming,Sustained Pressure Intensity/Depth Moderate Body Position Prone Comments Palpable trigger point over glute/QL with rolling on L side, monitored for pain. reduced with manual tx but not resolved Joint Mobilizations SIJ Direction PA Grade II Body Position Prone Reps/Duration 2x10 Comments Monitored for pain L hip Direction AP, PA Grade III Reps/Duration 2x10 ea Comments performed in prone and sidelying Manual Techniques MET Type R ant innom rot, L post innom rot Body Position Hooklying Reps/Duration 6 x 6 holds Comments Less pinching in SIJ post MET PT-OP-T Assessment and Plan Start: 02/27/24 16:43 Freq: Status: Active Protocol: Document 04/07/24 09:49 NM (Rec: 04/07/24 10:37 NM [id number]) Physical Therapy Assessment Goals Three Impairment pain with lifting, sitting, sleeping Short Term Goal (STG) Pt will be educated on body mechanics and ergonomics with lifting, sitting, and sleeping in order to improve symptom management 04/04/24: hand out issued with sleeping, sitting and desk stretches for work STG Duration 5 weeks Alf Goal (LTG) Pt will report that she is able to lift at least a 5-10# object without increase in low back pain for at least 5/10 reps in order to demonstrate improved strength and body mechanics LTG Duration 12 weeks Two Impairment hip and trunk strength limited Screening Technician Goal (LTG) Pt will improve global trunk and B hip strength to at least 4/5 MMT in order to demonstrate increased strength for stability during ADLs and improved symptom management 04/07/24: 4/5 for IR/ER; 4-/5 for all LTG Duration 12 weeks PROGRESSING One Impairment not performing HEP Short Term Goal (STG) Pt will be educated on HEP and provided HEP to perform at least 2-3x/wk in order to supplement sessions and maximize progression with PT 04/04/24: pt compliant with HEP several days/wk STG Duration 5 weeks MET Screening Technician Goal (LTG) Pt will report compliance with HEP at least 3x/wk in order to transition to maintenance program following discharge from PT LTG Duration 12 weeks Progress Towards Goals Progress Towards Goals Progressing Toward Goals Assessment Summary Assessment Pt tolerated session well, reports increased L hip pain/ SIJ pain at start of session. Reduced with MET. Trialed hip mobilizations to improve L hip extension and overall mobility within coxofemoral joint. Progressed to resisted hip strengthening in standing, especially with stepping and for lumbopelvic stabilization at stairs. Cueing needed for correct execution, breathwork, and to limit compensations. Pt fatigues quickly. Physical Therapy Plan Frequency and Duration Frequency of Treatment 1-2x/wk Duration of treatment (weeks) 12 Plan of Care Start Date 03/06/24 Plan of Care End Date 05/30/24 Therapeutic Interventions Therapeutic Interventions Balance Training,Gait Training ,Home Exercise Program,Manual Therapy,Neuromuscular Re- education,Orthotic/Prosthetic Management,Patient/Caregiver Education,Self-Care/Home Management,Sensory Integration ,Soft Tissue Mobilization, Taping,Therapeutic Activities, Therapeutic Exercises Modalities Cold Pack/Ice Massage,Electric Stimulation,Hot Packs, Ultrasound Next Visit Focus/Plan Next Note Type Treatment Note Next Visit Plan 12 visits max so update HEP ea sessionss hip strengthening in standing w/ breathwork. trial planking modified vs trunk ext and LF w / breathwork and support. STM to back/hip as needed initiate supported hip strengthening > standing hip exercises ( quad rock backs, jana bridge holds, fire hydrant vs clam, BKFO and flexion biased core in supine/ sidelying/sitting) and flexion biased core stabilization ( supine > sitting > standing progressions) thoracolumbar mobility: trial cat cow, open book vs thread needle (modified possibly) manual treatment prn to hips and low back
--- NOTE | 2024-04-09 12:00 | PT.OTN ---
Current Diagnoses Other chronic pain (04/09/24) Pain in right hip (04/09/24) Pain in left hip (04/09/24) Stiffness of right hip, not elsewhere classified (04/09/24) Stiffness of left hip, not elsewhere classified (04/09/24) Low back pain, unspecified (04/09/24) Pain in thoracic spine (04/09/24) Weakness (04/09/24) Physical Therapy Treatment Note PT-OP-A Visit Information Start: 02/27/24 16:43 Freq: Status: Active Protocol: Document 04/09/24 10:40 NBM (Rec: 04/09/24 12:00 NBM [id number]) Out-Patient Physical Therapy Visit Information Visit Information Visit Type Treatment Note Visit Note 12 visits incl eval Visit Start Time 10:52 Visit Stop Time 11:40 Visit Number 6 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 Pain started in 2020- started in her groin; states that thought from injury with dance; Worse with activity - sharp and suddne, can't replicate, worsening. STarted L, no R side in hip. Has scar tissue and endometriosis; 3x ED for lower back pain in Dec about 3 weeks. Needed support to bend and stand but now has improved. Has been referred to GI for celiac. Reports that when has lower back pain, she has less thoracic pain. Has eliminated gluten and alcohol and energy drinks, which has helped. L hip injured during pole dancing (dropping into splits), repeated impact; reports that when she stretches she feels a pop in the side of her groin; no catching or locking; states only when stretching. Not painful sensation. R side started in 2023. Has debilitating depression, spends a lot of time in bed. Has abdominal pain and low back. Has had for 2 years, worsening tammy in December. Denies BB changes and sensation changes. Midback- tightness R shoulder, not spine pain Prior Treatments and Tests Bilateral hip x ray September 2023- Impression: Unremarkable radiographic examination of bilateral hip Thoracic spine x ray September 2023 - Impression: No acute thoracic spine fracture or dislocation. Mild rightward curvature of thoracic spine centered at T8 level. No significant degenerative disc disease. PT-OP-C Subjective Start: 02/27/24 16:43 Freq: Status: Active Protocol: Document 04/09/24 10:40 NBM (Rec: 04/09/24 12:00 NBM [id number]) OP-PT Subjective Patient Comments Patient Comments Jane reports -08/07 with movements like cat/camel. She' s been doing ex's regularly except for when she wasn't feeling well last week. She isn't sure if she's doing the lat pull on stability ball correctly, and plans to get ball for sitting on at work. She's sleeping better and able to take naps now. PT-OP-E Functional Tests Start: 02/27/24 16:43 Freq: Status: Active Protocol: Document 03/06/24 10:35 NM (Rec: 03/06/24 11:36 NM [id number]) Functional Tests Other Forward Trunk Flexion Test Name of Test measured finger tips to floor Score 4 PT-OP-F Manual Assessment Start: 02/27/24 16:43 Freq: Status: Active Protocol: Document 03/06/24 10:35 NM (Rec: 03/06/24 11:36 NM [id number]) Manual Assessments Soft Tissue Assessment Soft Tissue Mobility Assessment Increased restrictions of B rhomboids and thoracolumbar paraspinals, tightness of hip flexors Joint Mobility Assessment Joint Mobility Assessment Hypomobility of thoracic spine with AROM and PROM Hypomobility of lumbar spine with AROM L hip hypermobile AROM and PROM but less mobility in prone than supine or sitting PT-OP-G Mobility & Gait Start: 02/27/24 16:43 Freq: Status: Active Protocol: Document 03/06/24 10:35 NM (Rec: 03/06/24 16:28 NM [id number]) OP Gait Assessment Gait Gait Assistance Required: Independent Distance (Feet) 150 Gait Deviations General Gait Pattern Antalgic PT-OP-J Posture/Palpation/Skin Start: 02/27/24 16:43 Freq: Status: Active Protocol: Document 03/06/24 10:35 NM (Rec: 03/06/24 11:36 NM [id number]) Posture Evaluation Position Standing Head/C-Spine Posture Forward Head T-Spine Posture Fixed Scoliosis on (R) L-Spine Posture Increased Lordosis Hip Posture (L) Externally Rotated,(R) Externally Rotated Knee Posture (L) Genu Valgus,(R) Genu Valgus Palpation Assessment Location thoracolumbar spine Palpation Details Mild tenderness with PA springing along midthoracic spinous processes and lower lumbar spine Tendereness over sacrum and B PSIS (L>R) but not at coccyx Increased restrictions of soft tissue mobility along thoracolumbar spine hips Palpation Details No tenderness to palpation at B hips PT-OP-K Range of Motion Start: 02/27/24 16:43 Freq: Status: Active Protocol: Document 04/07/24 09:49 NM (Rec: 04/07/24 10:37 NM [id number]) Lumbar Spine Range of Motion Lumbar Spine Active Percentage Flexion 95 Extension 50 Rotation Left 50 Rotation Right 100 Lateral Flexion Left 100 Lateral Flexion Right 100 Comments pain with: flex, ext TS: 75% R LF, 50% L LF (+), 100% ext, 100% flex (+), B rotation limited but not painful Hip Goniometric Range of Motion Hip Right Internal Rotation 45 External Rotation 28 Left Internal Rotation 45 External Rotation 30 Comments Less mobility in IR in prone PT-OP-L Special Tests Start: 02/27/24 16:43 Freq: Status: Active Protocol: Document 03/06/24 10:35 NM (Rec: 03/06/24 11:36 NM [id number]) Special Tests Lumbar Spine Special Tests Villanueva/Quadrant Test Results - Comments does not reproduce concordant pain Hip Special Tests prone hip IR Test Results + Comments less on L side but only mild increase in pain Anterior Labral Test Test Results + Comments L Scour Test Test Results + Comments L FADIR Test Results - Comments labral PT-OP-M Strength Start: 02/27/24 16:43 Freq: Status: Active Protocol: Document 04/07/24 09:49 NM (Rec: 04/07/24 10:37 NM [id number]) Trunk Strength Trunk Manual Muscle Testing Flexion 4 Good Extension 4 Good Rotation Left 4 Good Rotation Right 4 Good Lateral Flexion Left 4 Good Lateral Flexion Right 4 Good Comments Thoracic spine: 4/5 for all, no pain with resisted tested 04/07/24: 4/5 for all Hip Strength Hip Manual Muscle Testing Right Flexion (L2) 4- Good- Extension (S1) 4- Good- Abduction 4- Good- External Rotation 4 Good Internal Rotation 4 Good Comments 04/07/24: 4-/5 for flex, ext, abd Left Flexion (L2) 4- Good- Extension (S1) 4- Good- Abduction 4- Good- External Rotation 4 Good Internal Rotation 4 Good Comments 04/07/24: 4-/5 for flex,ext, abd PT-OP-Q Treatments Start: 02/27/24 16:43 Freq: Status: Active Protocol: Document 04/09/24 10:40 NBM (Rec: 04/09/24 12:00 NBM [id number]) Therapeutic Exercises Sitting Exercises cook islander ball Sitting Exercise Name 1. cat camel, 2. lateral tilts , 3. hip circles, 4. lat pull down, 5. march Side bilateral Resistance level 3 band [place] Equipment Used 65 cm cook islander ball, TrA and breath focus Reps/Minutes 1. 10 ea, 2. 10 ea, 3. 10 ea HEP 4. 2x10 5.x15 no TB,20 w/ lvl 3 Tb alt Comments has L sided tightness on low back/glute; challenging Standing Exercises resisted stepping Standing Exercise Name added to HEP: 1. lateral 2. fwd/retro Side bilateral Resistance level 3 band just below knees Equipment Used squat form Reps/Minutes 2x10 ft ea Comments pain free, cues for hip hinge pallof Standing Exercise Name HEP Side bilateral Resistance level 2 band Equipment Used with squat hold Reps/Minutes x10 mod to 2x5 due to quad fatigue Comments pain free; vc for TrA and breathwork Therapeutic Activity Therapeutic Activity STS Name sit to stand, pt c/o pain with standing after sitting from low surface Reps/Minutes x6 Comments initial cues for TrA activation, hip hinge, and breath with transition. Initial pain resolves with cueing and repetition. Self-Care/Home Management Treatment Education Patient Education Home Exercise Program,Pain Management,Posture Other Education Education to pt re: Transverse abdominis m. anatomy and activation w/ visual aids, interrelationship w/ diaphragm and pelvic floor, and importance of not breathholding to improve core recruitment and low back pain. HEP Review. Desk stretch HO clipped to inside cover of pt' s folder for quick reference d /t pt forgetting about. PT-OP-T Assessment and Plan Start: 02/27/24 16:43 Freq: Status: Active Protocol: Document 04/09/24 10:40 NBM (Rec: 04/09/24 12:00 NBM [id number]) Physical Therapy Assessment Goals Three Impairment pain with lifting, sitting, sleeping Short Term Goal (STG) Pt will be educated on body mechanics and ergonomics with lifting, sitting, and sleeping in order to improve symptom management 04/04/24: hand out issued with sleeping, sitting and desk stretches for work 04/09/24: Pt reports sleep is good, even napping. Forgot about desk stretch HO - clipped to inside of pt folder . Pt getting stability ball for sitting at desk. STG Duration 5 weeks Marble Ceiling Installer Goal (LTG) Pt will report that she is able to lift at least a 5-10# object without increase in low back pain for at least 5/10 reps in order to demonstrate improved strength and body mechanics LTG Duration 12 weeks Two Impairment hip and trunk strength limited Marble Ceiling Installer Goal (LTG) Pt will improve global trunk and B hip strength to at least 4/5 MMT in order to demonstrate increased strength for stability during ADLs and improved symptom management 04/07/24: 4/5 for IR/ER; 4-/5 for all LTG Duration 12 weeks PROGRESSING One Impairment not performing HEP Short Term Goal (STG) Pt will be educated on HEP and provided HEP to perform at least 2-3x/wk in order to supplement sessions and maximize progression with PT 04/04/24: pt compliant with HEP several days/wk STG Duration 5 weeks MET Prison Goal (LTG) Pt will report compliance with HEP at least 3x/wk in order to transition to maintenance program following discharge from PT LTG Duration 12 weeks Assessment Summary Assessment Jane presents with HEP handouts and 3-4/10 pain in L low back/glute with specific movements which improves after education for TrA activation and breathwork. Treatment focus on HEP review with emphasis on TrA activation and breathwork and hip strengthening. Pt requires cues for hyperxtension compensation at thoracolumbar junction w/ fatigue performing lateral pull downs seated on stability ball. She demos improved self-awareness of core recruitment with breathwork and for hip hinge with cueing, education, and repetition; initial pain w/ sts resolves with cues. R>L excessive hip rotation w/ monster walks still challenging when cued. Added to HEP: fwd/bwd monster walks - HO given. Physical Therapy Plan Frequency and Duration Frequency of Treatment 1-2x/wk Duration of treatment (weeks) 12 Plan of Care Start Date 03/06/24 Plan of Care End Date 05/30/24 Therapeutic Interventions Therapeutic Interventions Balance Training,Gait Training ,Home Exercise Program,Manual Therapy,Neuromuscular Re- education,Orthotic/Prosthetic Management,Patient/Caregiver Education,Self-Care/Home Management,Sensory Integration ,Soft Tissue Mobilization, Taping,Therapeutic Activities, Therapeutic Exercises Modalities Cold Pack/Ice Massage,Electric Stimulation,Hot Packs, Ultrasound Next Visit Focus/Plan Next Note Type Treatment Note Next Visit Plan 12 visits max so update HEP ea sessionss hip strengthening in standing w/ breathwork. trial planking modified vs trunk ext and LF w / breathwork and support. STM to back/hip as needed initiate supported hip strengthening > standing hip exercises ( quad rock backs, jana bridge holds, fire hydrant vs clam, BKFO and flexion biased core in supine/ sidelying/sitting) and flexion biased core stabilization ( supine > sitting > standing progressions) thoracolumbar mobility: trial cat cow, open book vs thread needle (modified possibly) manual treatment prn to hips and low back
--- NOTE | 2024-04-16 12:18 | PT.OTN ---
Current Diagnoses Other chronic pain (04/16/24) Pain in right hip (04/16/24) Pain in left hip (04/16/24) Stiffness of right hip, not elsewhere classified (04/16/24) Stiffness of left hip, not elsewhere classified (04/16/24) Low back pain, unspecified (04/16/24) Pain in thoracic spine (04/16/24) Weakness (04/16/24) Physical Therapy Treatment Note PT-OP-A Visit Information Start: 02/27/24 16:43 Freq: Status: Active Protocol: Document 04/16/24 11:37 SP (Rec: 04/16/24 12:26 SP [id number]) Out-Patient Physical Therapy Visit Information Visit Information Visit Type Treatment Note Visit Note 12 visits incl eval Visit Start Time 11:37 Visit Stop Time 12:18 Visit Number 7 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 Pain started in 2020- started in her groin; states that thought from injury with dance; Worse with activity - sharp and suddne, can't replicate, worsening. STarted L, no R side in hip. Has scar tissue and endometriosis; 3x ED for lower back pain in Dec about 3 weeks. Needed support to bend and stand but now has improved. Has been referred to GI for celiac. Reports that when has lower back pain, she has less thoracic pain. Has eliminated gluten and alcohol and energy drinks, which has helped. L hip injured during pole dancing (dropping into splits), repeated impact; reports that when she stretches she feels a pop in the side of her groin; no catching or locking; states only when stretching. Not painful sensation. R side started in 2023. Has debilitating depression, spends a lot of time in bed. Has abdominal pain and low back. Has had for 2 years, worsening tammy in December. Denies BB changes and sensation changes. Midback- tightness R shoulder, not spine pain Prior Treatments and Tests Bilateral hip x ray September 2023- Impression: Unremarkable radiographic examination of bilateral hip Thoracic spine x ray September 2023 - Impression: No acute thoracic spine fracture or dislocation. Mild rightward curvature of thoracic spine centered at T8 level. No significant degenerative disc disease. PT-OP-C Subjective Start: 02/27/24 16:43 Freq: Status: Active Protocol: Document 04/16/24 11:37 SP (Rec: 04/16/24 12:26 SP [id number]) OP-PT Subjective Patient Comments Patient Comments Pt reports was really sore for couple days after added band walks so stopped. Called Dr Thakkar (PCP) for requested MRI awareness of back before upcoming Endometriosis. PT-OP-E Functional Tests Start: 02/27/24 16:43 Freq: Status: Active Protocol: Document 03/06/24 10:35 NM (Rec: 03/06/24 11:36 NM [id number]) Functional Tests Other Forward Trunk Flexion Test Name of Test measured finger tips to floor Score 4 PT-OP-F Manual Assessment Start: 02/27/24 16:43 Freq: Status: Active Protocol: Document 03/06/24 10:35 NM (Rec: 03/06/24 11:36 NM [id number]) Manual Assessments Soft Tissue Assessment Soft Tissue Mobility Assessment Increased restrictions of B rhomboids and thoracolumbar paraspinals, tightness of hip flexors Joint Mobility Assessment Joint Mobility Assessment Hypomobility of thoracic spine with AROM and PROM Hypomobility of lumbar spine with AROM L hip hypermobile AROM and PROM but less mobility in prone than supine or sitting PT-OP-G Mobility & Gait Start: 02/27/24 16:43 Freq: Status: Active Protocol: Document 03/06/24 10:35 NM (Rec: 03/06/24 16:28 NM [id number]) OP Gait Assessment Gait Gait Assistance Required: Independent Distance (Feet) 150 Gait Deviations General Gait Pattern Antalgic PT-OP-J Posture/Palpation/Skin Start: 02/27/24 16:43 Freq: Status: Active Protocol: Document 03/06/24 10:35 NM (Rec: 03/06/24 11:36 NM [id number]) Posture Evaluation Position Standing Head/C-Spine Posture Forward Head T-Spine Posture Fixed Scoliosis on (R) L-Spine Posture Increased Lordosis Hip Posture (L) Externally Rotated,(R) Externally Rotated Knee Posture (L) Genu Valgus,(R) Genu Valgus Palpation Assessment Location thoracolumbar spine Palpation Details Mild tenderness with PA springing along midthoracic spinous processes and lower lumbar spine Tendereness over sacrum and B PSIS (L>R) but not at coccyx Increased restrictions of soft tissue mobility along thoracolumbar spine hips Palpation Details No tenderness to palpation at B hips PT-OP-K Range of Motion Start: 02/27/24 16:43 Freq: Status: Active Protocol: Document 04/07/24 09:49 NM (Rec: 04/07/24 10:37 NM [id number]) Lumbar Spine Range of Motion Lumbar Spine Active Percentage Flexion 95 Extension 50 Rotation Left 50 Rotation Right 100 Lateral Flexion Left 100 Lateral Flexion Right 100 Comments pain with: flex, ext TS: 75% R LF, 50% L LF (+), 100% ext, 100% flex (+), B rotation limited but not painful Hip Goniometric Range of Motion Hip Right Internal Rotation 45 External Rotation 28 Left Internal Rotation 45 External Rotation 30 Comments Less mobility in IR in prone PT-OP-L Special Tests Start: 02/27/24 16:43 Freq: Status: Active Protocol: Document 03/06/24 10:35 NM (Rec: 03/06/24 11:36 NM [id number]) Special Tests Lumbar Spine Special Tests Villanueva/Quadrant Test Results - Comments does not reproduce concordant pain Hip Special Tests prone hip IR Test Results + Comments less on L side but only mild increase in pain Anterior Labral Test Test Results + Comments L Scour Test Test Results + Comments L FADIR Test Results - Comments labral PT-OP-M Strength Start: 02/27/24 16:43 Freq: Status: Active Protocol: Document 04/07/24 09:49 NM (Rec: 04/07/24 10:37 NM [id number]) Trunk Strength Trunk Manual Muscle Testing Flexion 4 Good Extension 4 Good Rotation Left 4 Good Rotation Right 4 Good Lateral Flexion Left 4 Good Lateral Flexion Right 4 Good Comments Thoracic spine: 4/5 for all, no pain with resisted tested 04/07/24: 4/5 for all Hip Strength Hip Manual Muscle Testing Right Flexion (L2) 4- Good- Extension (S1) 4- Good- Abduction 4- Good- External Rotation 4 Good Internal Rotation 4 Good Comments 04/07/24: 4-/5 for flex, ext, abd Left Flexion (L2) 4- Good- Extension (S1) 4- Good- Abduction 4- Good- External Rotation 4 Good Internal Rotation 4 Good Comments 04/07/24: 4-/5 for flex,ext, abd PT-OP-Q Treatments Start: 02/27/24 16:43 Freq: Status: Active Protocol: Document 04/16/24 11:37 SP (Rec: 04/16/24 12:26 SP [id number]) Therapeutic Exercises Supine Exercises stretching Supine Exercise Name 1. piriformis stretch legs elevated 2. Kateryna stretch 3. HS stretch /c AP Side bilateral Resistance LE supported by UEs Equipment Used added to HEp declined HO peform as needed Reps/Minutes 30 SH x2 each each LE Comments 2. L tighter- good feedback gentle stretch bridge Side bilateral Reps/Minutes 10 throughout session to monitor symptoms Comments with ppt, pain with return to flex from end ROM Prone Exercises modified forearm plank/knees Prone Exercise Name initiated inPT- added toHEP /c HO Reps/Minutes 20 SH, 40 SH Comments cued PPT, lift neutral- improved core engagment & alignment pnfree Sitting Exercises finnish ball Sitting Exercise Name 1. pelvic tilt 2. lateral tilts, 3. pelvic circl 4. lat pull down, 5. march Side bilateral Resistance level 3 band [place] Equipment Used 65 cm finnish ball, TrA and breath focus Reps/Minutes 1. 10 ea, 2. 10 ea, 3. 10 ea HEP 4. [id number] 5. 20 w/ lvl 3 Tb alt Comments improved breath incorporation, postural correction, cued slower pacing Standing Exercises resisted stepping Standing Exercise Name Hold for now due to soreness back pain Self-Care/Home Management Treatment Education Patient Education Body Mechanics,Pain Management ,Posture,Safety Other Education Ed Improved TA, posture. Time spend sit on ball during computer time, awaiting tball and stand purchase. Ed safety supine core post surgery, hold perform resisted until healed. Good verbal comfirmation. Ed women's health PTs if need further support after surgery. PT-OP-T Assessment and Plan Start: 02/27/24 16:43 Freq: Status: Active Protocol: Document 04/16/24 11:37 SP (Rec: 04/16/24 12:26 SP [id number]) Physical Therapy Assessment Goals Three Impairment pain with lifting, sitting, sleeping Short Term Goal (STG) Pt will be educated on body mechanics and ergonomics with lifting, sitting, and sleeping in order to improve symptom management 04/04/24: hand out issued with sleeping, sitting and desk stretches for work 04/09/24: Pt reports sleep is good, even napping. Forgot about desk stretch HO - clipped to inside of pt folder . Pt getting stability ball for sitting at desk. 04/16/24: ed sit on ball, postural corrections, tolerance alignment and edurance sitting. STG Duration 5 weeks Progression 04/16/24 Group Home Goal (LTG) Pt will report that she is able to lift at least a 5-10# object without increase in low back pain for at least 5/10 reps in order to demonstrate improved strength and body mechanics LTG Duration 12 weeks Two Impairment hip and trunk strength limited Group Home Goal (LTG) Pt will improve global trunk and B hip strength to at least 4/5 MMT in order to demonstrate increased strength for stability during ADLs and improved symptom management 04/07/24: 4/5 for IR/ER; 4-/5 for all LTG Duration 12 weeks PROGRESSING One Impairment not performing HEP Short Term Goal (STG) Pt will be educated on HEP and provided HEP to perform at least 2-3x/wk in order to supplement sessions and maximize progression with PT 04/04/24: pt compliant with HEP several days/wk STG Duration 5 weeks 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 [employer] stretching self aware, declined HO know them: kateryna, HS /c AP, pirirformis. Cues for pelvic lift during forearm/ knee plank, improved corrections and tolerance 20- 40 sec today, gave HO form feedback. Pt better core engagement with good form core tball HEP today. Physical Therapy Plan Frequency and Duration Frequency of Treatment 1-2x/wk Duration of treatment (weeks) 12 Plan of Care Start Date 03/06/24 Plan of Care End Date 05/30/24 Therapeutic Interventions Therapeutic Interventions Balance Training,Gait Training ,Home Exercise Program,Manual Therapy,Neuromuscular Re- education,Orthotic/Prosthetic Management,Patient/Caregiver Education,Self-Care/Home Management,Sensory Integration ,Soft Tissue Mobilization, Taping,Therapeutic Activities, Therapeutic Exercises Modalities Cold Pack/Ice Massage,Electric Stimulation,Hot Packs, Ultrasound Next Visit Focus/Plan Next Note Type Treatment Note Next Visit Plan 12 visits max so update HEP ea sessionss - DC last scheduled appt. hip strengthening in standing w/ breathwork. Revisit forearm /knees plank with breathwork and support next tx. STM to back/hip as needed initiate supported hip strengthening > standing hip exercises ( quad rock backs, jana bridge holds, fire hydrant vs clam, BKFO and flexion biased core in supine/ sidelying/sitting) and flexion biased core stabilization ( supine > sitting > standing progressions) thoracolumbar mobility: trial cat cow, open book vs thread needle (modified possibly) manual treatment prn to hips and low back
--- NOTE | 2024-04-18 10:30 | PT.OTN ---
Current Diagnoses Other chronic pain (04/18/24) Pain in right hip (04/18/24) Pain in left hip (04/18/24) Stiffness of right hip, not elsewhere classified (04/18/24) Stiffness of left hip, not elsewhere classified (04/18/24) Low back pain, unspecified (04/18/24) Pain in thoracic spine (04/18/24) Weakness (04/18/24) Physical Therapy Treatment Note PT-OP-A Visit Information Start: 02/27/24 16:43 Freq: Status: Active Protocol: Document 04/18/24 09:52 SP (Rec: 04/18/24 10:40 SP [id number]) Out-Patient Physical Therapy Visit Information Visit Information Visit Type Treatment Note Visit Note 12 visits incl eval Visit Start Time 09:52 Visit Stop Time 10:30 Visit Number 8 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 Pain started in 2020- started in her groin; states that thought from injury with dance; Worse with activity - sharp and suddne, can't replicate, worsening. STarted L, no R side in hip. Has scar tissue and endometriosis; 3x ED for lower back pain in Dec about 3 weeks. Needed support to bend and stand but now has improved. Has been referred to GI for celiac. Reports that when has lower back pain, she has less thoracic pain. Has eliminated gluten and alcohol and energy drinks, which has helped. L hip injured during pole dancing (dropping into splits), repeated impact; reports that when she stretches she feels a pop in the side of her groin; no catching or locking; states only when stretching. Not painful sensation. R side started in 2023. Has debilitating depression, spends a lot of time in bed. Has abdominal pain and low back. Has had for 2 years, worsening tammy in December. Denies BB changes and sensation changes. Midback- tightness R shoulder, not spine pain Prior Treatments and Tests Bilateral hip x ray September 2023- Impression: Unremarkable radiographic examination of bilateral hip Thoracic spine x ray September 2023 - Impression: No acute thoracic spine fracture or dislocation. Mild rightward curvature of thoracic spine centered at T8 level. No significant degenerative disc disease. PT-OP-C Subjective Start: 02/27/24 16:43 Freq: Status: Active Protocol: Document 04/18/24 09:52 SP (Rec: 04/18/24 10:40 SP [id number]) OP-PT Subjective Patient Comments Patient Comments Pt reports has had bad cramps since last tx has modified lessened performance. The Monster walks better response no pain or soreness. PT-OP-E Functional Tests Start: 02/27/24 16:43 Freq: Status: Active Protocol: Document 03/06/24 10:35 NM (Rec: 03/06/24 11:36 NM [id number]) Functional Tests Other Forward Trunk Flexion Test Name of Test measured finger tips to floor Score 4 PT-OP-F Manual Assessment Start: 02/27/24 16:43 Freq: Status: Active Protocol: Document 03/06/24 10:35 NM (Rec: 03/06/24 11:36 NM [id number]) Manual Assessments Soft Tissue Assessment Soft Tissue Mobility Assessment Increased restrictions of B rhomboids and thoracolumbar paraspinals, tightness of hip flexors Joint Mobility Assessment Joint Mobility Assessment Hypomobility of thoracic spine with AROM and PROM Hypomobility of lumbar spine with AROM L hip hypermobile AROM and PROM but less mobility in prone than supine or sitting PT-OP-G Mobility & Gait Start: 02/27/24 16:43 Freq: Status: Active Protocol: Document 03/06/24 10:35 NM (Rec: 03/06/24 16:28 NM [id number]) OP Gait Assessment Gait Gait Assistance Required: Independent Distance (Feet) 150 Gait Deviations General Gait Pattern Antalgic PT-OP-J Posture/Palpation/Skin Start: 02/27/24 16:43 Freq: Status: Active Protocol: Document 03/06/24 10:35 NM (Rec: 03/06/24 11:36 NM [id number]) Posture Evaluation Position Standing Head/C-Spine Posture Forward Head T-Spine Posture Fixed Scoliosis on (R) L-Spine Posture Increased Lordosis Hip Posture (L) Externally Rotated,(R) Externally Rotated Knee Posture (L) Genu Valgus,(R) Genu Valgus Palpation Assessment Location thoracolumbar spine Palpation Details Mild tenderness with PA springing along midthoracic spinous processes and lower lumbar spine Tendereness over sacrum and B PSIS (L>R) but not at coccyx Increased restrictions of soft tissue mobility along thoracolumbar spine hips Palpation Details No tenderness to palpation at B hips PT-OP-K Range of Motion Start: 02/27/24 16:43 Freq: Status: Active Protocol: Document 04/07/24 09:49 NM (Rec: 04/07/24 10:37 NM [id number]) Lumbar Spine Range of Motion Lumbar Spine Active Percentage Flexion 95 Extension 50 Rotation Left 50 Rotation Right 100 Lateral Flexion Left 100 Lateral Flexion Right 100 Comments pain with: flex, ext TS: 75% R LF, 50% L LF (+), 100% ext, 100% flex (+), B rotation limited but not painful Hip Goniometric Range of Motion Hip Right Internal Rotation 45 External Rotation 28 Left Internal Rotation 45 External Rotation 30 Comments Less mobility in IR in prone PT-OP-L Special Tests Start: 02/27/24 16:43 Freq: Status: Active Protocol: Document 03/06/24 10:35 NM (Rec: 03/06/24 11:36 NM [id number]) Special Tests Lumbar Spine Special Tests Villanueva/Quadrant Test Results - Comments does not reproduce concordant pain Hip Special Tests prone hip IR Test Results + Comments less on L side but only mild increase in pain Anterior Labral Test Test Results + Comments L Scour Test Test Results + Comments L FADIR Test Results - Comments labral PT-OP-M Strength Start: 02/27/24 16:43 Freq: Status: Active Protocol: Document 04/07/24 09:49 NM (Rec: 04/07/24 10:37 NM [id number]) Trunk Strength Trunk Manual Muscle Testing Flexion 4 Good Extension 4 Good Rotation Left 4 Good Rotation Right 4 Good Lateral Flexion Left 4 Good Lateral Flexion Right 4 Good Comments Thoracic spine: 4/5 for all, no pain with resisted tested 04/07/24: 4/5 for all Hip Strength Hip Manual Muscle Testing Right Flexion (L2) 4- Good- Extension (S1) 4- Good- Abduction 4- Good- External Rotation 4 Good Internal Rotation 4 Good Comments 04/07/24: 4-/5 for flex, ext, abd Left Flexion (L2) 4- Good- Extension (S1) 4- Good- Abduction 4- Good- External Rotation 4 Good Internal Rotation 4 Good Comments 04/07/24: 4-/5 for flex,ext, abd PT-OP-Q Treatments Start: 02/27/24 16:43 Freq: Status: Active Protocol: Document 04/18/24 09:52 SP (Rec: 04/18/24 10:40 SP [id number]) Therapeutic Exercises Supine Exercises happy baby pose Supine Exercise Name trialed in PT for support pelvis ROM and cramp support reduction Resistance grasp Edison ankles toward chest Reps/Minutes 30 SH Comments good response, little adductor stretch stretching Supine Exercise Name 1. piriformis stretch legs elevated 2. Corwin stretch 3. HS stretch /c AP Side bilateral Resistance LE supported by UEs Equipment Used added to HEp declined HO peform as needed Reps/Minutes 30 SH x2 each each LE Comments 2. L tighter- good feedback gentle stretch Prone Exercises pigeon pose Prone Exercise Name up and down- reviewed self past stretch Side bilateral Reps/Minutes 30 SH Comments cued not excessive range into pain, gentle stretch /c breath modified forearm plank/knees Prone Exercise Name reviewed HEP Reps/Minutes 40 SH Comments Cued tailbone tuck, CS nod /c retract correction Sitting Exercises Cuban advanced Sitting Exercise Name 6. hip ext /c ABD- trialed in PT Resistance TB #2 at shins Equipment Used prone over 75cm tball Reps/Minutes 10 reps Comments cued TA no LB arch, hip ext /c ABD- good core/ hip abd tiring. [place] ball Sitting Exercise Name 1. pelvic tilt 2. lateral tilts, 3. pelvic circl 4. lat pull down 5. 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 10 ea, 2. 10 ea, 3. 10 ea HEP 4. 10 RFace 5. 20 alternatiw/ lvl 3 Tb alt Comments improved breath and slower pacing stability Other Exercises quadruped Other Exercise Name 1. cat camel & tail wag 2. hip abd (HEP), 3. hip ext (HEP) 4 . thread needle Side bilateral Resistance level 2 band 2-3. Reps/Minutes 1. 10, 2. 10 ea, 3. 10 ea 4. x10 Comments occ cue TA draw in, improved scap stab SL arm stance time, new thread needl PT-OP-T Assessment and Plan Start: 02/27/24 16:43 Freq: Status: Active Protocol: Document 04/18/24 09:52 SP (Rec: 04/18/24 10:40 SP [id number]) Physical Therapy Assessment Goals Three Impairment pain with lifting, sitting, sleeping Short Term Goal (STG) Pt will be educated on body mechanics and ergonomics with lifting, sitting, and sleeping in order to improve symptom management 04/04/24: hand out issued with sleeping, sitting and desk stretches for work 04/09/24: Pt reports sleep is good, even napping. Forgot about desk stretch HO - clipped to inside of pt folder . Pt getting stability ball for sitting at desk. 04/16/24: ed sit on ball, postural corrections, tolerance alignment and edurance sitting. STG Duration 5 weeks Progression 04/16/24 [facility]dc Goal (LTG) Pt will report that she is able to lift at least a 5-10# object without increase in low back pain for at least 5/10 reps in order to demonstrate improved strength and body mechanics LTG Duration 12 weeks Two Impairment hip and trunk strength limited Fdc Goal (LTG) Pt will improve global trunk and B hip strength to at least 4/5 MMT in order to demonstrate increased strength for stability during ADLs and improved symptom management 04/07/24: 4/5 for IR/ER; 4-/5 for all LTG Duration 12 weeks PROGRESSING One Impairment not performing HEP Short Term Goal (STG) Pt will be educated on HEP and provided HEP to perform at least 2-3x/wk in order to supplement sessions and maximize progression with PT 04/04/24: pt compliant with HEP several days/wk STG Duration 5 weeks MET [facility]dc Goal (LTG) Pt will report compliance with HEP at least 3x/wk in order to transition to maintenance program following discharge from PT LTG Duration 12 weeks Assessment Summary Assessment Pt improved core and pelvic engagement corrections throughout ther ex. Tolerated advancement prone over tball with resisted hip ext&abd and seated rearfacing pull downs more core recruitment. Pt reports no pain with ther ex today and declined HOs for happy baby, prone hip ext and pull downs today on tball. Pt would beneifit from HEP finalize review for progression own next tx. Physical Therapy Plan Frequency and Duration Frequency of Treatment 1-2x/wk Duration of treatment (weeks) 12 Plan of Care Start Date 03/06/24 Plan of Care End Date 05/30/24 Therapeutic Interventions Therapeutic Interventions Balance Training,Gait Training ,Home Exercise Program,Manual Therapy,Neuromuscular Re- education,Orthotic/Prosthetic Management,Patient/Caregiver Education,Self-Care/Home Management,Sensory Integration ,Soft Tissue Mobilization, Taping,Therapeutic Activities, Therapeutic Exercises Modalities Cold Pack/Ice Massage,Electric Stimulation,Hot Packs, Ultrasound Next Visit Focus/Plan Next Note Type Discharge Summary Next Visit Plan 12 visits max so update HEP ea sessionss 1 more appt, ready DC. POC: Recheck Tball and finalize HEP with ed which safe perform after surgery. POC: Continue: flexion biased core and hip strengthening progress standing w/ breathwork. STM to back/hip as needed
--- NOTE | 2024-04-18 10:30 | PT.OTN ---
Current Diagnoses Other chronic pain (04/18/24) Pain in right hip (04/18/24) Pain in left hip (04/18/24) Stiffness of right hip, not elsewhere classified (04/18/24) Stiffness of left hip, not elsewhere classified (04/18/24) Low back pain, unspecified (04/18/24) Pain in thoracic spine (04/18/24) Weakness (04/18/24) Physical Therapy Treatment Note PT-OP-A Visit Information Start: 02/27/24 16:43 Freq: Status: Active Protocol: Document 04/18/24 09:52 SP (Rec: 04/18/24 10:40 SP [id number]) Out-Patient Physical Therapy Visit Information Visit Information Visit Type Treatment Note Visit Note 12 visits incl eval Visit Start Time 09:52 Visit Stop Time 10:30 Visit Number 8 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 Pain started in 2020- started in her groin; states that thought from injury with dance; Worse with activity - sharp and suddne, can't replicate, worsening. STarted L, no R side in hip. Has scar tissue and endometriosis; 3x ED for lower back pain in Dec about 3 weeks. Needed support to bend and stand but now has improved. Has been referred to GI for celiac. Reports that when has lower back pain, she has less thoracic pain. Has eliminated gluten and alcohol and energy drinks, which has helped. L hip injured during pole dancing (dropping into splits), repeated impact; reports that when she stretches she feels a pop in the side of her groin; no catching or locking; states only when stretching. Not painful sensation. R side started in 2023. Has debilitating depression, spends a lot of time in bed. Has abdominal pain and low back. Has had for 2 years, worsening tammy in December. Denies BB changes and sensation changes. Midback- tightness R shoulder, not spine pain Prior Treatments and Tests Bilateral hip x ray September 2023- Impression: Unremarkable radiographic examination of bilateral hip Thoracic spine x ray September 2023 - Impression: No acute thoracic spine fracture or dislocation. Mild rightward curvature of thoracic spine centered at T8 level. No significant degenerative disc disease. PT-OP-C Subjective Start: 02/27/24 16:43 Freq: Status: Active Protocol: Document 04/18/24 09:52 SP (Rec: 04/18/24 10:40 SP [id number]) OP-PT Subjective Patient Comments Patient Comments Pt reports has had bad cramps since last tx has modified lessened performance. The Monster walks better response no pain or soreness. PT-OP-E Functional Tests Start: 02/27/24 16:43 Freq: Status: Active Protocol: Document 03/06/24 10:35 NM (Rec: 03/06/24 11:36 NM [id number]) Functional Tests Other Forward Trunk Flexion Test Name of Test measured finger tips to floor Score 4 PT-OP-F Manual Assessment Start: 02/27/24 16:43 Freq: Status: Active Protocol: Document 03/06/24 10:35 NM (Rec: 03/06/24 11:36 NM [id number]) Manual Assessments Soft Tissue Assessment Soft Tissue Mobility Assessment Increased restrictions of B rhomboids and thoracolumbar paraspinals, tightness of hip flexors Joint Mobility Assessment Joint Mobility Assessment Hypomobility of thoracic spine with AROM and PROM Hypomobility of lumbar spine with AROM L hip hypermobile AROM and PROM but less mobility in prone than supine or sitting PT-OP-G Mobility & Gait Start: 02/27/24 16:43 Freq: Status: Active Protocol: Document 03/06/24 10:35 NM (Rec: 03/06/24 16:28 NM [id number]) OP Gait Assessment Gait Gait Assistance Required: Independent Distance (Feet) 150 Gait Deviations General Gait Pattern Antalgic PT-OP-J Posture/Palpation/Skin Start: 02/27/24 16:43 Freq: Status: Active Protocol: Document 03/06/24 10:35 NM (Rec: 03/06/24 11:36 NM [id number]) Posture Evaluation Position Standing Head/C-Spine Posture Forward Head T-Spine Posture Fixed Scoliosis on (R) L-Spine Posture Increased Lordosis Hip Posture (L) Externally Rotated,(R) Externally Rotated Knee Posture (L) Genu Valgus,(R) Genu Valgus Palpation Assessment Location thoracolumbar spine Palpation Details Mild tenderness with PA springing along midthoracic spinous processes and lower lumbar spine Tendereness over sacrum and B PSIS (L>R) but not at coccyx Increased restrictions of soft tissue mobility along thoracolumbar spine hips Palpation Details No tenderness to palpation at B hips PT-OP-K Range of Motion Start: 02/27/24 16:43 Freq: Status: Active Protocol: Document 04/07/24 09:49 NM (Rec: 04/07/24 10:37 NM [id number]) Lumbar Spine Range of Motion Lumbar Spine Active Percentage Flexion 95 Extension 50 Rotation Left 50 Rotation Right 100 Lateral Flexion Left 100 Lateral Flexion Right 100 Comments pain with: flex, ext TS: 75% R LF, 50% L LF (+), 100% ext, 100% flex (+), B rotation limited but not painful Hip Goniometric Range of Motion Hip Right Internal Rotation 45 External Rotation 28 Left Internal Rotation 45 External Rotation 30 Comments Less mobility in IR in prone PT-OP-L Special Tests Start: 02/27/24 16:43 Freq: Status: Active Protocol: Document 03/06/24 10:35 NM (Rec: 03/06/24 11:36 NM [id number]) Special Tests Lumbar Spine Special Tests Villanueva/Quadrant Test Results - Comments does not reproduce concordant pain Hip Special Tests prone hip IR Test Results + Comments less on L side but only mild increase in pain Anterior Labral Test Test Results + Comments L Scour Test Test Results + Comments L FADIR Test Results - Comments labral PT-OP-M Strength Start: 02/27/24 16:43 Freq: Status: Active Protocol: Document 04/07/24 09:49 NM (Rec: 04/07/24 10:37 NM [id number]) Trunk Strength Trunk Manual Muscle Testing Flexion 4 Good Extension 4 Good Rotation Left 4 Good Rotation Right 4 Good Lateral Flexion Left 4 Good Lateral Flexion Right 4 Good Comments Thoracic spine: 4/5 for all, no pain with resisted tested 04/07/24: 4/5 for all Hip Strength Hip Manual Muscle Testing Right Flexion (L2) 4- Good- Extension (S1) 4- Good- Abduction 4- Good- External Rotation 4 Good Internal Rotation 4 Good Comments 04/07/24: 4-/5 for flex, ext, abd Left Flexion (L2) 4- Good- Extension (S1) 4- Good- Abduction 4- Good- External Rotation 4 Good Internal Rotation 4 Good Comments 04/07/24: 4-/5 for flex,ext, abd PT-OP-Q Treatments Start: 02/27/24 16:43 Freq: Status: Active Protocol: Document 04/18/24 09:52 SP (Rec: 04/18/24 10:40 SP [id number]) Therapeutic Exercises Supine Exercises happy baby pose Supine Exercise Name trialed in PT for support pelvis ROM and cramp support reduction Resistance grasp Edison ankles toward chest Reps/Minutes 30 SH Comments good response, little adductor stretch stretching Supine Exercise Name 1. piriformis stretch legs elevated 2. Corwin stretch 3. HS stretch /c AP Side bilateral Resistance LE supported by UEs Equipment Used added to HEp declined HO peform as needed Reps/Minutes 30 SH x2 each each LE Comments 2. L tighter- good feedback gentle stretch Prone Exercises pigeon pose Prone Exercise Name up and down- reviewed self past stretch Side bilateral Reps/Minutes 30 SH Comments cued not excessive range into pain, gentle stretch /c breath modified forearm plank/knees Prone Exercise Name reviewed HEP Reps/Minutes 40 SH Comments Cued tailbone tuck, CS nod /c retract correction Sitting Exercises [place] advanced Sitting Exercise Name 6. hip ext /c ABD- trialed in PT Resistance TB #2 at shins Equipment Used prone over 75cm tball Reps/Minutes 10 reps Comments cued TA no LB arch, hip ext /c ABD- good core/ hip abd tiring. nigerian ball Sitting Exercise Name 1. pelvic tilt 2. lateral tilts, 3. pelvic circl 4. lat pull down 5. 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 10 ea, 2. 10 ea, 3. 10 ea HEP 4. 10 RFace 5. 20 alternatiw/ lvl 3 Tb alt Comments improved breath and slower pacing stability Other Exercises quadruped Other Exercise Name 1. cat camel & tail wag 2. hip abd (HEP), 3. hip ext (HEP) 4 . thread needle Side bilateral Resistance level 2 band 2-3. Reps/Minutes 1. 10, 2. 10 ea, 3. 10 ea 4. x10 Comments occ cue TA draw in, improved scap stab SL arm stance time, new thread needl PT-OP-T Assessment and Plan Start: 02/27/24 16:43 Freq: Status: Active Protocol: Document 04/18/24 09:52 SP (Rec: 04/18/24 10:40 SP [id number]) Physical Therapy Assessment Goals Three Impairment pain with lifting, sitting, sleeping Short Term Goal (STG) Pt will be educated on body mechanics and ergonomics with lifting, sitting, and sleeping in order to improve symptom management 04/04/24: hand out issued with sleeping, sitting and desk stretches for work 04/09/24: Pt reports sleep is good, even napping. Forgot about desk stretch HO - clipped to inside of pt folder . Pt getting stability ball for sitting at desk. 04/16/24: ed sit on ball, postural corrections, tolerance alignment and edurance sitting. STG Duration 5 weeks Progression 04/16/24 Jail Goal (LTG) Pt will report that she is able to lift at least a 5-10# object without increase in low back pain for at least 5/10 reps in order to demonstrate improved strength and body mechanics LTG Duration 12 weeks Two Impairment hip and trunk strength limited Jail Goal (LTG) Pt will improve global trunk and B hip strength to at least 4/5 MMT in order to demonstrate increased strength for stability during ADLs and improved symptom management 04/07/24: 4/5 for IR/ER; 4-/5 for all LTG Duration 12 weeks PROGRESSING One Impairment not performing HEP Short Term Goal (STG) Pt will be educated on HEP and provided HEP to perform at least 2-3x/wk in order to supplement sessions and maximize progression with PT 04/04/24: pt compliant with HEP several days/wk STG Duration 5 weeks MET Jail Goal (LTG) Pt will report compliance with HEP at least 3x/wk in order to transition to maintenance program following discharge from PT LTG Duration 12 weeks Assessment Summary Assessment Pt improved core and pelvic engagement corrections throughout ther ex. Tolerated advancement prone over tball with resisted hip ext and rearfacing pull downs. Pt reports no pain with ther ex today and declned HOs for happy baby, prone hip ext and pull downs today. Pt would beneifit from HEP finalize review for progression own next tx. Physical Therapy Plan Frequency and Duration Frequency of Treatment 1-2x/wk Duration of treatment (weeks) 12 Plan of Care Start Date 03/06/24 Plan of Care End Date 05/30/24 Therapeutic Interventions Therapeutic Interventions Balance Training,Gait Training ,Home Exercise Program,Manual Therapy,Neuromuscular Re- education,Orthotic/Prosthetic Management,Patient/Caregiver Education,Self-Care/Home Management,Sensory Integration ,Soft Tissue Mobilization, Taping,Therapeutic Activities, Therapeutic Exercises Modalities Cold Pack/Ice Massage,Electric Stimulation,Hot Packs, Ultrasound Next Visit Focus/Plan Next Note Type Treatment Note Next Visit Plan 12 visits max so update HEP ea sessionss hip strengthening in standing w/ breathwork. Revisit forearm /knees plank with breathwork and support next tx. STM to back/hip as needed initiate supported hip strengthening > standing hip exercises ( quad rock backs, jnaa bridge holds, fire hydrant vs clam, BKFO and flexion biased core in supine/ sidelying/sitting) and flexion biased core stabilization ( supine > sitting > standing progressions) thoracolumbar mobility: trial cat cow, open book vs thread needle (modified possibly) manual treatment prn to hips and low back
--- NOTE | 2024-04-25 15:55 | PT.OTN ---
Current Diagnoses Other chronic pain (04/25/24) Pain in right hip (04/25/24) Pain in left hip (04/25/24) Stiffness of right hip, not elsewhere classified (04/25/24) Stiffness of left hip, not elsewhere classified (04/25/24) Low back pain, unspecified (04/25/24) Pain in thoracic spine (04/25/24) Weakness (04/25/24) Physical Therapy Treatment Note PT-OP-A Visit Information Start: 02/27/24 16:43 Freq: Status: Active Protocol: Document 04/25/24 11:34 NM (Rec: 04/25/24 12:19 NM [id number]) Out-Patient Physical Therapy Visit Information Visit Information Visit Type Discharge Summary Visit Note 12 visits incl eval Visit Start Time 11:35 Visit Stop Time 12:15 Visit Number 01/09 Evaluation Information Evaluation Date 03/06/24 PT-OP-B Current Condition Start: 02/27/24 16:43 Freq: Status: Active Protocol: Document 03/06/24 10:35 NM (Rec: 03/06/24 11:36 NM [id number]) Current Condition History of Current Condition Onset Date 2020- chronic and ongoing Current Complaints pain, limited mobility, weakness History of Current Condition Pt presents with pain in mid back and low back, and Bhip pain. Pain started in 2020- started in her groin; states that thought from injury with dance; Worse with activity - sharp and suddne, can't replicate, worsening. STarted L, no R side in hip. Has scar tissue and endometriosis; 3x ED for lower back pain in Dec about 3 weeks. Needed support to bend and stand but now has improved. Has been referred to GI for celiac. Reports that when has lower back pain, she has less thoracic pain. Has eliminated gluten and alcohol and energy drinks, which has helped. L hip injured during pole dancing (dropping into splits), repeated impact; reports that when she stretches she feels a pop in the side of her groin; no catching or locking; states only when stretching. Not painful sensation. R side started in 2023. Has debilitating depression, spends a lot of time in bed. Has abdominal pain and low back. Has had for 2 years, worsening tammy in December. Denies BB changes and sensation changes. Midback- tightness R shoulder, not spine pain Prior Treatments and Tests Bilateral hip x ray September 2023- Impression: Unremarkable radiographic examination of bilateral hip Thoracic spine x ray September 2023 - Impression: No acute thoracic spine fracture or dislocation. Mild rightward curvature of thoracic spine centered at T8 level. No significant degenerative disc disease. PT-OP-C Subjective Start: 02/27/24 16:43 Freq: Status: Active Protocol: Document 04/25/24 11:34 NM (Rec: 04/25/24 12:19 NM [id number]) OP-PT Subjective Patient Comments Patient Comments Pt reports that she saw Dr. Shelton, planning to get MRI due to sharp pain in hips. She reports that her low back pain has been worse since having to re-trial gluten. Has not been able to do standing HEP due to increase in back pain following re-introduction of gluten but has been doing core workouts without issues. Pt and PT discussed discharge today at previous sessions, PT and pt in agreement about discharge PT-OP-E Functional Tests Start: 02/27/24 16:43 Freq: Status: Active Protocol: Document 03/06/24 10:35 NM (Rec: 03/06/24 11:36 NM [id number]) Functional Tests Other Forward Trunk Flexion Test Name of Test measured finger tips to floor Score 4 PT-OP-F Manual Assessment Start: 02/27/24 16:43 Freq: Status: Active Protocol: Document 03/06/24 10:35 NM (Rec: 03/06/24 11:36 NM [id number]) Manual Assessments Soft Tissue Assessment Soft Tissue Mobility Assessment Increased restrictions of B rhomboids and thoracolumbar paraspinals, tightness of hip flexors Joint Mobility Assessment Joint Mobility Assessment Hypomobility of thoracic spine with AROM and PROM Hypomobility of lumbar spine with AROM L hip hypermobile AROM and PROM but less mobility in prone than supine or sitting PT-OP-G Mobility & Gait Start: 02/27/24 16:43 Freq: Status: Active Protocol: Document 03/06/24 10:35 NM (Rec: 03/06/24 16:28 NM [id number]) OP Gait Assessment Gait Gait Assistance Required: Independent Distance (Feet) 150 Gait Deviations General Gait Pattern Antalgic PT-OP-J Posture/Palpation/Skin Start: 02/27/24 16:43 Freq: Status: Active Protocol: Document 03/06/24 10:35 NM (Rec: 03/06/24 11:36 NM [id number]) Posture Evaluation Position Standing Head/C-Spine Posture Forward Head T-Spine Posture Fixed Scoliosis on (R) L-Spine Posture Increased Lordosis Hip Posture (L) Externally Rotated,(R) Externally Rotated Knee Posture (L) Genu Valgus,(R) Genu Valgus Palpation Assessment Location thoracolumbar spine Palpation Details Mild tenderness with PA springing along midthoracic spinous processes and lower lumbar spine Tendereness over sacrum and B PSIS (L>R) but not at coccyx Increased restrictions of soft tissue mobility along thoracolumbar spine hips Palpation Details No tenderness to palpation at B hips PT-OP-K Range of Motion Start: 02/27/24 16:43 Freq: Status: Active Protocol: Document 04/25/24 11:34 NM (Rec: 04/25/24 12:19 NM [id number]) Lumbar Spine Range of Motion Lumbar Spine Active Percentage Flexion 100 Extension 75 Rotation Left 100 Rotation Right 100 Lateral Flexion Left 100 Lateral Flexion Right 100 Comments pain with: flex, ext TS: 75% R LF, 50% L LF (+), 100% ext, 100% flex (+), B rotation limited but not painful PT-OP-L Special Tests Start: 02/27/24 16:43 Freq: Status: Active Protocol: Document 03/06/24 10:35 NM (Rec: 03/06/24 11:36 NM [id number]) Special Tests Lumbar Spine Special Tests Villanueva/Quadrant Test Results - Comments does not reproduce concordant pain Hip Special Tests prone hip IR Test Results + Comments less on L side but only mild increase in pain Anterior Labral Test Test Results + Comments L Scour Test Test Results + Comments L FADIR Test Results - Comments labral PT-OP-M Strength Start: 02/27/24 16:43 Freq: Status: Active Protocol: Document 04/25/24 11:34 NM (Rec: 04/25/24 12:19 NM [id number]) Trunk Strength Trunk Manual Muscle Testing Flexion 5 Normal Extension 5 Normal Rotation Left 4 Good Rotation Right 4 Good Lateral Flexion Left 4+ Good+ Lateral Flexion Right 4+ Good+ Comments Thoracic spine: 4/5 for all, no pain with resisted tested 04/07/24: 4/5 for all 04/25/24: rot still limited but pain free Hip Strength Hip Manual Muscle Testing Right Flexion (L2) 4 Good Extension (S1) 4 Good Abduction 4 Good External Rotation 4 Good Internal Rotation 4 Good Comments 04/07/24: 4-/5 for flex, ext, abd Left Flexion (L2) 4 Good Extension (S1) 4 Good Abduction 4- Good- Adduction 4 Good External Rotation 4 Good Internal Rotation 4 Good Comments 04/07/24: 4-/5 for flex,ext, abd PT-OP-Q Treatments Start: 02/27/24 16:43 Freq: Status: Active Protocol: Document 04/25/24 11:34 NM (Rec: 04/25/24 12:19 NM [id number]) Therapeutic Exercises Supine Exercises TrA activation Supine Exercise Name 1. june w/ lat pull down, 2. hands on wall w/ leg lifts/ lowers Side bilateral Resistance level 2 band Reps/Minutes 1. 10 ea alt, 2. 2x5 ea Comments demos good core activation; no pain Other Exercises quadruped Other Exercise Name 1. hip abd, 2. bird dog, 3. hip hike Side bilateral Resistance level 2 band Equipment Used mat on floor; towel under knee for #3 Reps/Minutes 1. 2x10, 2. 2x10, 3. 10 ea side Comments pain free; prn cues for TrA Therapeutic Activity Therapeutic Activity lifting mechanics Name 5# db Reps/Minutes 10 min Comments 1. hip hinge with self tactile cues and AROM only 2. deadlift with 5# db ea hand 3. squat w/ 5# lifting 4. crates lifts/carries 10# db Cueing for hip hinge w/ deadlift form similar to form when lifting objects up from floor. Initially cueing need for core bracing. Emphasis on breath work especially with exertion PT-OP-T Assessment and Plan Start: 02/27/24 16:43 Freq: Status: Active Protocol: Document 04/25/24 11:34 NM (Rec: 04/25/24 12:19 NM [id number]) Physical Therapy Assessment Goals Three Impairment pain with lifting, sitting, sleeping Short Term Goal (STG) Pt will be educated on body mechanics and ergonomics with lifting, sitting, and sleeping in order to improve symptom management 04/04/24: hand out issued with sleeping, sitting and desk stretches for work 04/09/24: Pt reports sleep is good, even napping. Forgot about desk stretch HO - clipped to inside of pt folder . Pt getting stability ball for sitting at desk. 04/16/24: ed sit on ball, postural corrections, tolerance alignment and edurance sitting. STG Duration 5 weeks Progression 04/16/24 Loan Funder Goal (LTG) Pt will report that she is able to lift at least a 5-10# object without increase in low back pain for at least 5/10 reps in order to demonstrate improved strength and body mechanics 04/25/24: performed lifting, carrying, deadlifts, and squats with up to 10#, cueing for form only and demos no back pain, performed in prep for pt upcoming move LTG Duration 12 weeks MET 04/25/24 Two Impairment hip and trunk strength limited Usp Goal (LTG) Pt will improve global trunk and B hip strength to at least 4/5 MMT in order to demonstrate increased strength for stability during ADLs and improved symptom management 04/07/24: 4/5 for IR/ER; 4-/5 for all 04/25/24: at least 4/5 for all trunk and hips, no pain LTG Duration 12 weeks MET One Impairment not performing HEP Short Term Goal (STG) Pt will be educated on HEP and provided HEP to perform at least 2-3x/wk in order to supplement sessions and maximize progression with PT 04/04/24: pt compliant with HEP several days/wk STG Duration 5 weeks MET Loan Funder Goal (LTG) Pt will report compliance with HEP at least 3x/wk in order to transition to maintenance program following discharge from PT 04/25/24: pt reports intermittent compliance with HEP due to health LTG Duration 12 weeks NOT MET Progress Towards Goals Progress Towards Goals Progressing Toward Goals,Slow Progress due to Activity Tolerance,Slow Progress due to Medical Issues,Goals Met Assessment Summary Assessment Pt tolerated session well. Continues to respond best to quadruped positioning for hip strengthening and core bracing . Initiated lifting and carrying mechanics; cueing needed for body mechanics, form, and for core bracing. Better feedback for quadruped hip hike vs standing hip hike in previous sessions. Pt does not have back or hip pain with lifting or carrying up to 10# . Education provided (no handout) on mechanics for pt's upcoming move; improved form with reps, less cueing needed. Physical Therapy Plan Frequency and Duration Frequency of Treatment 1-2x/wk Duration of treatment (weeks) 12 Plan of Care Start Date 03/06/24 Plan of Care End Date 05/30/24 Therapeutic Interventions Therapeutic Interventions Balance Training,Gait Training ,Home Exercise Program,Manual Therapy,Neuromuscular Re- education,Orthotic/Prosthetic Management,Patient/Caregiver Education,Self-Care/Home Management,Sensory Integration ,Soft Tissue Mobilization, Taping,Therapeutic Activities, Therapeutic Exercises Modalities Cold Pack/Ice Massage,Electric Stimulation,Hot Packs, Ultrasound Other Referrals/Consults Referrals/Consults Recommended Pt would benefit from an evaluation by a pelvic floor PT Discharge Physical Therapy Discharge Comments Pt will be having surgery in upcoming weeks. Improvements in hip strength but not with pain management or ability to participate in ADLs/ recreational activities. PT issued maintenance HEP for continued strengthening 3x/wk, progressions provided with resistance bands and on handouts. Clear education to d /c post-op until cleared for exercise by MD. Pt verbalizes understanding. She will discharged from PT and will need new referral following MRI/further assessment from specialist if further PT deemed appropriate. Next Visit Focus/Plan Next Note Type Discharge Summary Next Visit Plan discharge from PT
== END 2024-05-08 13:55 | disposition home or self-care (01) ==
LOC: PHYS 11:30
PROVIDERS: Family Provider Student in an Organized Health Care Education/Training Program; PCP Student in an Organized Health Care Education/Training Program; Referring Provider Family Medicine; Visit Provider Family Medicine
DX: M54.6 Pain in thoracic spine (principal); G89.29 Other chronic pain; M54.50 Low back pain, unspecified; M25.551 Pain in right hip; M25.552 Pain in left hip; R53.1 Weakness; M25.651 Stiffness of right hip, not elsewhere classified; M25.652 Stiffness of left hip, not elsewhere classified
CPT/HCPCS: 97110; 97140; 97161; 97530; 97535

== ENCOUNTER → 2024-05-02 07:18 | Outpatient (CLI) | payer OTHER, SELFPAY ==
--- NOTE | 2024-05-02 07:19 | DI.MRI.S_ITS ---
PROCEDURE: MR HIP RT WO CON INDICATIONS: Bilateral Hip pain TECHNIQUE: Noncontrast coronal T1 spin echo and STIR through the bony pelvis. Coronal and axial T2 fast spin echo with fat saturation, sagittal T1 spin echo, and oblique axial T2 fast spin echo with fat saturation through the hip. COMPARISON: Merged With [facility], CR, XR HIP W PEL IF DONE SARAH 3TO4V, 10/17/2023, 14:07. FINDINGS: Image quality: Excellent. Bones and joints: Bone marrow of the pelvic ring and proximal femurs show normal signal throughout. No intraosseous lesions or fractures. No avascular necrosis of the femoral head. The visualized lower lumbar spine appears normally aligned. Tendons and ligaments: The gluteus medius and minimus tendons appear intact, without associated muscle atrophy. The proximal iliotibial band appears intact. The iliopsoas tendon appears intact, without adjacent bursal fluid collections. The origin of the hamstring tendon is intact at the ischial tuberosity. The tendons for the direct and indirect heads of the rectus femoris muscle appear intact. Labrum and cartilage: Suspected nondisplaced tearing of the posterior superior labrum. No focal cartilage defect. No significant hip effusion. Normal morphology of the femoral head in the acetabulum. Cartilage surface of the femoral head appears of normal thickness. There is normal morphology of the femoral head and acetabulum. Soft tissues: Visualized muscles demonstrate normal bulk and internal signal. Quadratus femoris muscle demonstrates no internal edema to suggest ischiofemoral impingement. The proximal sciatic neurovascular bundle appears normal adjacent to the hamstring tendons. Pelvic soft tissues demonstrate no acute abnormality. IMPRESSION: 1. Small nondisplaced tear at the posterior superior right acetabular labrum. 2. No acute trabecular bone injury. No significant ligament or tendon injury is seen. Approved by: Zack Ham M.D. on 05/02/2024 at 14:02
--- NOTE | 2024-05-02 07:19 | DI.MRI.S_ITS ---
PROCEDURE: MR HIP LT WO CON INDICATIONS: Bilateral Hip pain TECHNIQUE: Noncontrast coronal T1 spin echo and STIR through the bony pelvis. Coronal and axial T2 fast spin echo with fat saturation, sagittal T1 spin echo, and oblique axial T2 fast spin echo with fat saturation through the hip. COMPARISON: [facility], CR, XR HIP W PEL IF DONE SARAH 3TO4V, 10/17/2023, 14:07. FINDINGS: Image quality: Excellent. Bones and joints: Bone marrow of the pelvic ring and proximal femurs show normal signal throughout. No intraosseous lesions or fractures. No avascular necrosis of the femoral head. The visualized lower lumbar spine appears normally aligned. Tendons and ligaments: The gluteus medius and minimus tendons appear intact, without associated muscle atrophy. The proximal iliotibial band appears intact. The iliopsoas tendon appears intact, without adjacent bursal fluid collections. The origin of the hamstring tendon is intact at the ischial tuberosity. The tendons for the direct and indirect heads of the rectus femoris muscle appear intact. Labrum and cartilage: Nondisplaced tearing of the superior to posterior superior labrum. Partial-thickness cartilage irregularity at the superior lateral acetabulum with focal subchondral edema and cystic changes as well as mild marginal spurring. Normal morphology of the femoral head and acetabulum. No significant effusion. Soft tissues: Visualized muscles demonstrate normal bulk and internal signal. Quadratus femoris muscle demonstrates no internal edema to suggest ischiofemoral impingement. The proximal sciatic neurovascular bundle appears normal adjacent to the hamstring tendons. Pelvic soft tissues demonstrate no acute abnormality. IMPRESSION: 1. Nondisplaced tearing of the superior to posterior superior left acetabular labrum. 2. 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 3. No acute trabecular bone injury. No significant ligament or tendon injury is seen. Approved by: Zack Ham M.D. on 05/02/2024 at 14:04
== END ==
LOC: MRI 07:19
PROVIDERS: Family Provider Student in an Organized Health Care Education/Training Program; PCP Student in an Organized Health Care Education/Training Program; Referring Provider Student in an Organized Health Care Education/Training Program; Visit Provider Student in an Organized Health Care Education/Training Program
DX: S73.192A Other sprain of left hip, initial encounter (principal); S73.191A Other sprain of right hip, initial encounter; M94.252 Chondromalacia, left hip; M25.551 Pain in right hip; M25.552 Pain in left hip; G89.29 Other chronic pain
CPT/HCPCS: 73721

== ENCOUNTER 2024-05-12 07:52 | Day surgery (SDC) | payer OTHER, SELFPAY ==
[2024-05-06 13:14] VITALS: BMI 23.9
[2024-05-12] VITALS (8 sets, daily range): BP systolic 117–155; BP diastolic 78–101; PULSE 70–93; RESP 16–21; TEMP 36.2–36.6; O2SAT 97–100; BMI 23.8
--- NOTE | 2024-05-12 | PATH_ITS ---
[facility] Accession Number: [id number] No. of containers..01 Tissue . 01 Material submitted: . fallopian tube - REMNANT OF RIGHT FALLOPIAN TUBE . 01 Diagnosis: REMNANT OF RIGHT FALLOPIAN TUBE: Blue-inked segment of fallopian tube, complete corss-sections; negative for signigicant atypia. Green-inked segment consists of fibroconnective/fibrovascular tissue with scattered inclusion cysts; no fallopian tube identified in this segment. No endometriosis identified. [facility] 05/14/2024 1706 Local . 01 Electronically signed: . Chasity Damon MD, Pathologist NPI- [id number] . 01 Gross description: . Received in formalin with two patient identifiers and remnant right fallopian tube, are two vogel tubular soft tissue fragments. The first (1.6 x 0.4 cm) is inked blue while the second (1.0 x 0.5 cm) is inked green. Sectioning reveals the blue fragment to have a small pinpoint lumen and no lumen is grossly identified within the green fragment. The specimen us submitted entirely in A1. ([id number]) /MRV 05/13/2024 1504 Local . 01 Pathologist provided ICD-10: N80.9, R10.2 . 01 CPT . 879294 Specimen Comment: A courtesy copy of this report has been sent to [facility] Pathology Performed at: [address] [address], [place], [place] [id number] MD Braden Frederick MD Phone: [phone]
[2024-05-12] MEDS: LACTATED RINGERS 1,000 ML 42 ML IV ×2 (09:45→13:37)
[2024-05-12] MEDS: SCOPOLAMINE 1 PATCH TOP (09:47)
[2024-05-12] MEDS: ACETAMINOPHEN IV 1,000 MG/100 ML VIAL 400 MG IV (09:47)
--- NOTE | 2024-05-12 12:08 | PM.PREOP ---
Pre-operative Note Interval Note History & Physical reviewed/Exam performed by Physician: Yes Changes to H&P: No H&P completed within 30 days and has changed as indicated here:: 05/02/24 ASA Class (for procedural sedation): II
--- NOTE | 2024-05-12 13:02 | SUR.OPER ---
Lithotomy on padded OR bed. [place] Pad Positioner under torso. Head on pillow, arms padded and tucked at sides. Legs secured in padded yellow fins stirrups.
[2024-05-12] MEDS: BUPIVACAINE 0.25% W/ EPI 30 ML VIAL INJ (13:11)
--- NOTE | 2024-05-12 13:26 | P.OP_ITS ---
Operative Date/Time/Diagnoses Date of procedure: 05/12/24 Time of procedure: 13:26 Pre-op diagnosis: acute on chronic pelvic pain Post-op diagnosis: same Procedure & Clinicians Procedure: diagnostic laparoscopy, lysis of adhesions, excision of R fallopian tube remnant Same procedure as scheduled: Yes Indications: acute on chronic pelvic pain, suspected endometriosis Surgeon: Radha Agrawal Hearing Impaired Itinerant Teacher: Elizabeth Singleton Click Yes if Unassisted: No Anesthesia Type: General Operative Notes Findings: normal external female genitalia, perineum, anus intra-abdominal survey notable for filmy adhesions of L descending colon adherent to L peritoneal side wall, filmy adhesions/windw within cul-de-sac with fluid collection, remanant of R fallopian tube approx 3cm in length originating from R cornua c/w prior procedure no evidence of upper abdominal/diaphragm scar no gross stigmata of endometriosis, visualized adhesions consistent with prior known pelvic infection Closure Type: primary Specimen(s): other (remnant of R fallopian tube ) Estimated Blood Loss (mL): 10 Blood products transfused: none Procedure in detail: The patient was taken to the operating room, placed on the operating table in the supine position and intubated with ETT.? The patient was then placed in the lithotomy position with her legs in Hussein stirrups.? The patient was then examined under anesthesia with the above findings, then prepped and draped in a sterile fashion.? A briones catheter was placed.? Time out was performed. A 5mm incision was made infraumbilically following superficial infiltration with 0.25% marcaine with epinepherine for local analgesia. Abdominal entry was achieved under direct visualization using the 5mm VisaPort trocar.? Abdomen was insufflated to 15mmHg.? Two lateral 5-mm ports were placed in a similar manner under direct visualization.? The uterus was anteverted and abdominal survey was noted with findings as noted above. The Powerseal was used to dissect the noted adhesions of the L colon to the adjacent peritoneal side wall taking great care to avoid thermal injury to the bowel. The adhesions within the cul-de-sac were visualized and deemed not appropriate for resection seconadry to risk to anvik support structures (uterosacral ligaments).? The R fallopian tube remnant was elevated using the atraumatic grasper and dissected away from the mesosalpinx and then amputated at the level of the cornua. Specimen was removed under direct visualization via the R lateral port. All dissection beds were visually inspected and noted to be hemostatic. Pneumoperitoneum was vented and laparoscopic trocars were removed under direct visualization. The skin of the incision sites was closed using 4-0 monocryl followed by application of dermabond. The patient had her legs taken out of stirrups, was awakened from anesthesia and taken to the PACU in stable condition. Of note, prior to closure the L lateral trocar site was initially grasped with blunt pick-up that was discarded as the prongs were sticking to one another preventing spontaneous opening; these were passed off the field and exchanged for rat-tooth pick-ups. hotel maintenance technician on inspection of the discarded instrument noted that it was in fact contaminated secondary to adherent dermabond which had not yet been applied in our case. As the tissue of the L lateral site had only been brief maniuplated with the instrument in a superficial fashion the areas of all trocar insertion were re-prepped with chlorhexadine prior to closure with monocryl and application of dermabond. An incident report was filed (see nursing documentation). There was no significant injury to patient identified at time of procedure. Complications: none Post-operative Condition: stable Disposition: PACU Plan for aftercare: dc to home pending recovery, routine f/u in office as scheduled
[2024-05-12] MEDS: KETOROLAC 30 MG/ML VIAL IV (13:36)
[2024-05-12] MEDS: ONDANSETRON 4 MG/2 ML INJ IV (13:46)
[2024-05-12] MEDS: OXYCODONE IR 5 MG TABLET PO (13:46)
[2024-05-12] MEDS: HYDROMORPHONE 1 MG INJ IV (13:47)
[2024-05-12] MEDS: BENZOCAINE/MENTHOL 1 LOZ PKT 1 EACH PO (14:28)
== END 2024-05-12 15:00 | disposition home or self-care (01) ==
PROVIDERS: Family Provider Student in an Organized Health Care Education/Training Program; PCP Student in an Organized Health Care Education/Training Program; Referring Provider Obstetrics & Gynecology; Visit Provider Obstetrics & Gynecology
PROC: (CPT 58661; principal; 2024-05-12 07:45)
DX: R10.2 Pelvic and perineal pain (principal); N73.6 Female pelvic peritoneal adhesions (postinfective); G89.29 Other chronic pain; F90.9 Attention-deficit hyperactivity disorder, unspecified type; F43.10 Post-traumatic stress disorder, unspecified; F41.9 Anxiety disorder, unspecified; F32.A Depression, unspecified; Z87.891 Personal history of nicotine dependence
CPT/HCPCS: 58661; J0131; J1100; J1171; J1885; J2250; J2405; J2704; J3010